=== PATIENT | female | born 2005 | race Caucasian/White ===

== ENCOUNTER 2023-08-01 12:59 | Inpatient (IN) ==
[2023-08-01] MEDS ORDERED: KETOROLAC TROMETHAMINE 15 MG/ML VIAL IV STA (13:28)
[2023-08-01] MEDS ORDERED: diphenhydrAMINE 50 MG/ML VIAL IV STA (13:28)
[2023-08-01] MEDS ORDERED: METOCLOPRAMIDE HCL INJ 5 MG/ML 2 ML VIAL IV STA (13:28)
[2023-08-01] MEDS ORDERED: SODIUM CHLORIDE 0.9% 1,000 ML IV SCH (13:30)
--- NOTE | 2023-08-01 13:44 | Emergency Department Note ---
Impression & Plan Headache, Lyme disease, Type I diabetes mellitus ED Provider Note CHIEF COMPLAINT: Migraine headache HISTORY OF PRESENT ILLNESS: This 18-year-old female patient with significant past medical history of type 1 diabetes presented to the emergency department via private vehicle with a gradual onset of a severe generalized headache that started 2-3 weeks ago. The patient denies history of migraines. She does have a history of Lyme disease and has had significant headache associated with that. Patient states the Lyme disease was approximately 1 year ago and her symptoms at this time remind her of the headache she had with the Lyme disease. There has been associated photophobia, phonophobia, nausea, but no vomiting. The patient denies fever or chills recently, and there is no weakness or numbness of the extremities. There is no difficulty with speech or vision. No trauma to the head and no neck pain. The pain is severe, constant, and it is slowly increasing in severity. The patient rates the pain as throbbing and 10/10. The pain does seem to improve with lying still and covering her eyes. The patient has taken Imitrex and Toradol without relief of the symptoms. Patient did try going to the chiropractor for adjustments about a week ago. She states that her headache has been consistently getting worse since that time. The patient has tried OTC analgesics without relief. REVIEW OF SYSTEMS: A 10 system review of systems was performed with positives and pertinent negatives listed in the history of present illness. All other systems were reviewed and are negative. ALLERGIES: Peanut PHYSICAL EXAM: Vital Signs: Reviewed Nurse's notes, vital signs stable. GENERAL: This is a 18-year-old female, who appears in pain, but non toxic in appearance and in no acute distress. MENTAL STATUS: Alert, oriented, and coherent. HEENT: Normocephalic. PERRLA. EOMI. Nares patent without nuchal rigidity. Tympanic membranes pearly clark without erythema or effusion bilaterally. Mucous membranes moist. NECK: Supple, no nuchal rigidity, nontender, no lymphadenopathy. HEART: Regular rhythm and normal rate without murmurs, ectopy, gallops, or rubs. LUNGS: Clear to auscultation bilaterally without wheezes, rales or rhonchi. No dullness to percussion. No accessory muscle use. No retractions. SKIN: Normal. NEUROLOGICAL: Pupils are round, equal and react to light. The optic fundi are normal and the discs are flat. The patient moves all extremities well and the gait is normal. EMERGENCY DEPARTMENT COURSE: I examined the patient. Patient presents with headache for the past 3 weeks. Patient has tried outpatient supplements as well as outpatient medications including Imitrex and OTC Tylenol and ibuprofen without relief of her symptoms. The patient did try Toradol earlier today without improvement. No neurologic deficit. No new tick bite, but mother did request repeat Lyme disease testing. IV access was obtained, labs are drawn. Patient was hydrated with IV fluids, medicated with Toradol, Reglan, Benadryl. CT, CT angiogram imaging was completed due to the patient's recent chiropractic manipulation. The studies were negative for acute abnormality. Labs were reviewed no leukocytosis, anemia, thrombocytopenia. Renal, hepatic function and electrolytes without significant abnormality. INR 1.1.. hCG negative. Lyme disease testing positive for both IgG and IgM antibodies. I discussed the findings with the patient and her mother at bedside. The patient states she is still not feeling any better. She was medicated with IV Tylenol and a second liter of IV fluids. The patient was again reassessed. She notes no improvement in her symptoms. I discussed at this time with the patient the potential need for admission, lumbar puncture, or other therapies/treatments. The patient was interested in admission, but her mother was uncertain why we would recommend admission and felt it weird that her headache was not improving. The patient's mother states she does not believe that her symptoms are associated with Lyme disease. Advised that we could do a trial with IV steroids and magnesium in order to determine whether this may help with her headache. I advised the patient that our goal is 50% improvement in the headache for discharge. The patient was medicated with IV Magnesium and steroids. On reevaluation, she notes her pain is actually worse. I did recommend admission at this time and the patient and mother were agreeable. I discussed case with Sd Sapp hospitalist on-call. She did agree to see and evaluate the patient for admission. Please see hospitalist dictation regarding ongoing management and care of this patient. The differential diagnosis includes acute intracranial bleed, meningitis, encephalitis, mass or mass effect, sinusitis, infection, tumor, headache, temporal arteritis and carbon monoxide exposure, and migraine. Blood Pressure Screening: Patient was found to have a slightly elevated blood pressure due to circumstances. I do not believe that the patient requires hypertension monitoring. I attest that I have personally reviewed the patient's current medication list. The chart was completed utilizing [employer] voice recognition software. Grammatical errors, random word insertions, pronoun errors, and incomplete sentences are an occasional consequence of this system due to software limitations, ambient noise, and hardware issues. Any formal questions or concerns about the content, text, or information contained within the body of this dictation should be directly addressed to the provider for clarification. Past Med/Surg History Medical History H/o Lyme disease Major depressive disorder Patellofemoral pain syndrome of left knee Type I diabetes mellitus Surgical History (Updated 08/01/23 @ 20:12 by Saira Dumont DO) No pertinent past surgical history Family History (Updated 08/01/23 @ 20:13 by Saira Dumont DO) Father Thyroid disease Grandmother Thyroid disease Social History Smoking Status: Never smoker Hx Alcohol Use: No Hx Substance Use: No Preferred Language: Swazi Feels Safe at Home: Yes Allergies Allergies Allergy/AdvReac Type Severity Reaction Status Date / Time peanut Allergy Unknown Unverified 08/01/23 19:24 Home Meds Home Medications Medication Instructions Recorded Confirmed insulin aspart U-100 100 unit/mL 48 unit continuous subcutaneous 10/23/21 08/01/23 subcutaneous solution (Novolog infusion DAILY U-100 Insulin aspart) bupropion HCl 150 mg 24 hr tablet, 150 mg PO QAM 08/01/23 08/01/23 extended release magnesium 200 mg tablet 400 mg PO DAILY 08/01/23 08/01/23 melatonin 10 mg tablet 20 mg PO HS 08/01/23 08/01/23 riboflavin (vitamin B2) 400 mg 400 mg PO DAILY 08/01/23 08/01/23 tablet sertraline 25 mg tablet 37.5 mg PO QPM 08/01/23 08/01/23 Results & Data (ED) Vital Signs Vital Signs - 24 hr 08/01/23 13:13 08/01/23 13:45 08/01/23 13:28 Temperature 36.3 C L Temperature Source Temporal Artery Scan Pulse Rate - Lying Pulse Rate - Sitting Pulse Rate 108 H 93 H Pulse Rate [Right Finger] 102 H Pulse Rhythm Regular Regular Pulse Rhythm [Right Finger] Regular Pulse Strength Normal Pulse Strength [Right Finger] Normal Respiratory Rate 20 18 80 H Respiratory Effort / Characteristics Non-Labored Spontaneous Non-Labored Spontaneous Respiratory Depth Normal Normal Respiratory Pattern Regular Blood Pressure - Lying Blood Pressure - Sitting Blood Pressure 153/97 H Blood Pressure [Right Arm] Blood Pressure Mean 115 Blood Pressure Mean [Right Arm] Blood Pressure Position Sitting Blood Pressure Position [Right Arm] Pulse Oximetry 100 97 96 Oxygen Delivery Method Room Air Room Air Room Air Sepsis Recent Fever Within 48 Hours No Sepsis New/Unexplained Change in Mental Status No Sepsis Action Taken by Nursing No Action Required 08/01/23 15:00 08/01/23 15:53 08/01/23 19:14 Temperature Temperature Source Pulse Rate - Lying 90 Pulse Rate - Sitting 114 H Pulse Rate Pulse Rate [Right Finger] 96 H 92 H Pulse Rhythm Pulse Rhythm [Right Finger] Regular Pulse Strength Pulse Strength [Right Finger] Normal Normal Respiratory Rate 16 16 Respiratory Effort / Characteristics Non-Labored Spontaneous Non-Labored Respiratory Depth Normal Normal Respiratory Pattern Regular Regular Blood Pressure - Lying 152/87 H Blood Pressure - Sitting 160/101 H Blood Pressure Blood Pressure [Right Arm] 151/85 H Blood Pressure Mean Blood Pressure Mean [Right Arm] 107 Blood Pressure Position Blood Pressure Position [Right Arm] Lying Pulse Oximetry 97 99 Oxygen Delivery Method Room Air Room Air Sepsis Recent Fever Within 48 Hours Sepsis New/Unexplained Change in Mental Status Sepsis Action Taken by Nursing Laboratory Data 08/01/23 13:59 08/01/23 13:59 Lab Results 08/01/23 08/01/23 08/01/23 Range/Units 13:59 13:59 13:59 WBC 7.86 (4.8-10.8) K/ul RBC 5.53 H (4.20-5.40) M/uL Hgb 16.0 (12.0-16.0) g/dl Hct 46.8 (37.0-47.0) % MCV 84.6 (80.0-100.0) fL MCH 28.9 (25.0-34.0) pg MCHC 34.2 (32.0-36.0) g/dL RDW Std Deviation 36.4 (36.4-46.3) fL RDW Coeff of Blue 11.9 (11.5-14.5) % Plt Count 274 (130-400) K/uL MPV 8.9 L (9.4-12.4) fL Immature Gran % (Auto) 0.1 % Neut % (Auto) 73.1 % Lymph % (Auto) 19.8 % Louisa % (Auto) 4.7 % Eos % (Auto) 1.3 % Baso % (Auto) 1.0 % Neut # (Auto) 5.74 (1.40-6.50) K/uL Lymph # (Auto) 1.56 (1.20-3.40) K/uL Louisa # (Auto) 0.37 (0.11-0.59) K/uL Eos # (Auto) 0.10 (0.00-0.50) K/uL Baso # (Auto) 0.08 (0.00-0.20) K/uL Immature Gran # (Auto) 0.01 (0.01-0.20) K/uL PT 11.5 (9.0-12.0) Seconds INR 1.1 (0.9-1.1) APTT 30.6 (21.0-31.0) Seconds PTT Ratio 1.1 Sodium 139 (136-145) mmol/L Potassium 3.7 (3.5-5.1) mmol/L Chloride 105 (98-107) mmol/L Carbon Dioxide 26 (21-32) mmol/L Anion Gap 8 (3-11) BUN 11 (6-23) mg/dl Creatinine 0.68 (0.6-1.2) mg/dl Est Cr Clr Drug Dosing 142.7 ml/min Est GFR ( Amer) 145.9 ml/min Est GFR (Non-Af Amer) 125.9 ml/min BUN/Creatinine Ratio 16.2 (10-20) Glucose 115 H (70-99(Fasting)) mg/dl Calcium 10.0 (8.6-10.3) mg/dl Total Bilirubin 0.6 (0.2-1.0) mg/dl AST 13 (13-39) U/L ALT 8 (7-52) U/L Alkaline Phosphatase 44 (34-104) U/L Total Protein 8.7 H (6.0-8.3) gm/dl Albumin 5.2 H (3.4-5.0) gm/dl Globulin 3.5 (2.5-4.0) gm/dl Albumin/Globulin Ratio 1.5 (0.9-2) HCG, Qual (Negative) Lyme Disease IgG Ab (Negative) Lyme Disease IgM Ab (Negative) 08/01/23 Range/Units 13:59 WBC (4.8-10.8) K/ul RBC (4.20-5.40) M/uL Hgb (12.0-16.0) g/dl Hct (37.0-47.0) % MCV (80.0-100.0) fL MCH (25.0-34.0) pg MCHC (32.0-36.0) g/dL RDW Std Deviation (36.4-46.3) fL RDW Coeff of Blue (11.5-14.5) % Plt Count (130-400) K/uL MPV (9.4-12.4) fL Immature Gran % (Auto) % Neut % (Auto) % Lymph % (Auto) % Louisa % (Auto) % Eos % (Auto) % Baso % (Auto) % Neut # (Auto) (1.40-6.50) K/uL Lymph # (Auto) (1.20-3.40) K/uL Louisa # (Auto) (0.11-0.59) K/uL Eos # (Auto) (0.00-0.50) K/uL Baso # (Auto) (0.00-0.20) K/uL Immature Gran # (Auto) (0.01-0.20) K/uL PT (9.0-12.0) Seconds INR (0.9-1.1) APTT (21.0-31.0) Seconds PTT Ratio Sodium (136-145) mmol/L Potassium (3.5-5.1) mmol/L Chloride (98-107) mmol/L Carbon Dioxide (21-32) mmol/L Anion Gap (3-11) BUN (6-23) mg/dl Creatinine (0.6-1.2) mg/dl Est Cr Clr Drug Dosing ml/min Est GFR ( Amer) ml/min Est GFR (Non-Af Amer) ml/min BUN/Creatinine Ratio (10-20) Glucose (70-99(Fasting)) mg/dl Calcium (8.6-10.3) mg/dl Total Bilirubin (0.2-1.0) mg/dl AST (13-39) U/L ALT (7-52) U/L Alkaline Phosphatase (34-104) U/L Total Protein (6.0-8.3) gm/dl Albumin (3.4-5.0) gm/dl Globulin (2.5-4.0) gm/dl Albumin/Globulin Ratio (0.9-2) HCG, Qual Negative (Negative) Lyme Disease IgG Ab Positive A (Negative) Lyme Disease IgM Ab Positive A (Negative) Administered Medications Discontinued Medications Dexamethasone Sodium Phosphate (DexamethasonePf 10 Mg/Ml Vial) 10 mg IV NOW ONE Stop: 08/01/23 17:29 Last Admin: 08/01/23 18:28 Dose: 10 mg Documented By: SKIP Diphenhydramine HCl (Diphenhydramine 50 Mg/Ml Vial) 25 mg IV NOW STA Stop: 08/01/23 13:29 Last Admin: 08/01/23 14:18 Dose: 50 mg Documented By: SKIP Sodium Chloride (Nss) 1,000 mls @ 999 mls/hr IV .Q1H1M MECHE Stop: 08/01/23 14:30 Last Infusion: 08/01/23 16:51 Dose: 0 mls/hr Documented By: Admin: 08/01/23 14:17 Dose: 999 mls/hr Documented By: SKIP Sodium Chloride (Nss) 1,000 mls @ 999 mls/hr IV .Q1H1M ONE Stop: 08/01/23 17:10 Last Infusion: 08/01/23 19:14 Dose: 0 mls/hr Documented By: Admin: 08/01/23 16:27 Dose: 999 mls/hr Documented By: SKIP Acetaminophen (Ofirmev) 1,000 mg in 100 mls @ 400 mls/hr IV NOW STA Stop: 08/01/23 16:24 Last Infusion: 08/01/23 19:13 Dose: 0 mls/hr Documented By: Admin: 08/01/23 16:29 Dose: 400 mls/hr Documented By: SKIP Ceftriaxone Sodium (Rocephin) 2,000 mg in 50 mls @ 100 mls/hr IV NOW STA Stop: 08/01/23 16:55 Last Infusion: 08/01/23 19:13 Dose: 0 mls/hr Documented By: Admin: 08/01/23 17:00 Dose: 100 mls/hr Documented By: SKIP Magnesium Sulfate/Dextrose (Magnesium Sulfate / D5w) 1 gm in 100 mls @ 100 mls/hr IV NOW ONE Stop: 08/01/23 18:27 Last Infusion: 08/01/23 19:30 Dose: 0 mls/hr Documented By: Admin: 08/01/23 18:28 Dose: 100 mls/hr Documented By: SKIP Ioversol (Optiray 320 500ml) 115 ml IV ONCE ONE Stop: 08/01/23 15:05 Last Admin: 08/01/23 15:05 Dose: 115 ml Documented By: JOHANNA Ketorolac Tromethamine (Ketorolac Tromethamine 15 Mg/Ml Vial) 10 mg IV NOW STA Stop: 08/01/23 13:29 Last Admin: 08/01/23 14:18 Dose: 15 mg Documented By: SKIP Lidocaine (Lidocaine 5% 1 Patch) 1 patch TD NOW STA Stop: 08/01/23 16:11 Last Admin: 08/01/23 16:27 Dose: 1 patch Documented By: SKIP Metoclopramide HCl (Metoclopramide Hcl Inj 5 Mg/Ml 2 Ml Vial) 10 mg IV NOW STA Stop: 08/01/23 13:29 Last Admin: 08/01/23 14:18 Dose: 10 mg Documented By: SKIP Imaging Data Radiologist's Impression: Head CT 08/01/23 13:30 CT OF THE HEAD WITHOUT CONTRAST CLINICAL HISTORY: Headache. COMPARISON STUDY: Head CT October 23, 2021. TECHNIQUE: Helical axial images of the head were obtained without IV contrast. Automated exposure control was utilized for the study. A dose lowering technique was utilized adhering to the principles of ALARA. FINDINGS: No acute intracranial hemorrhage, midline shift or mass effect is present. The ventricular system is unremarkable. The basal cisterns are patent. No extra-axial collections are present. There are no findings to suggest acute dural sinus thrombosis or acute territorial infarct. No significant calvarial abnormalities are present. Visualized portions of the sinuses and mastoid air cells are clear. IMPRESSION: No acute intracranial findings. ACT 112: Negative or not required by law. Electronically signed by: Christian Tao M.D. 08/01/2023 3:13 PM Head CTA 08/01/23 13:30 CTA ANGIOGRAPHY OF THE HEAD CLINICAL HISTORY: Headache. COMPARISON STUDY: No previous studies for comparison. TECHNIQUE: Helical axial images of the head were obtained following uneventful intravenous administration of 115 cc of Optiray. Sagittal and coronal reconstructions were viewed as well as maximal intensity projections on an independent 3-D workstation. Automated exposure control was utilized for the study. A dose lowering technique was utilized adhering to the principles of ALARA. FINDINGS: No acute intracranial hemorrhage is identified on the head CT which will be reported separately. The ventricular system is normal. Basal cisterns are patent. There are no extra axial collections. The bilateral M1, M2, A1 and A2 segments are patent. There is no intracranial aneurysm. There is no central vessel occlusion. Posterior circulation is intact. Major dural sinuses appear pa tent. IMPRESSION: Unremarkable CTA of the head. ACT 112: Negative or not required by law. Electronically signed by: Christian Tao M.D. 08/01/2023 3:24 PM Neck CTA 08/01/23 13:30 CT ANGIOGRAPHY OF THE NECK WITH CONTRAST CLINICAL HISTORY: Headache. COMPARISON STUDY: No previous studies for comparison. Technique: CT angiography of the carotid and vertebral arteries was obtained using Optiray and 3D reconstruction on an independent workstation. NASCET criteria was utilized. Automated exposure control was utilized for the study. A dose lowering technique was utilized adhering to the principles of ALARA. CT DOSE: 1190.9 mGy.cm Findings: Visualized portions of the lung apices are unremarkable. There is no cervical lymphadenopathy. There are no cervical spine fractures. The bilateral common carotid, cervical internal carotid and vertebral arteries are patent. No dissection, stenosis or aneurysm within the neck is present. IMPRESSION: Unremarkable CTA of the neck. ACT 112: Negative or not required by law. Electronically signed by: Christian Tao M.D. 08/01/2023 3:21 PM Discharge Plan Visit Data Chief Complaint: Headache Stated Complaint: MIGRAINE, NECK PAIN ED Provider: Mitzi Beasley ED Midlevel Provider: Sara Herrera Discharge Problem: Headache, Lyme disease, Type I diabetes mellitus Forms Stand Alone Forms: [facility]lectance Medical Prescriptions Prescriptions: No Action insulin aspart U-100 [Novolog U-100 Insulin aspart] 100 unit/mL solution 48 unit continuous subcutaneous infusion DAILY Rx Instructions: pump sertraline 25 mg tablet 37.5 mg PO QPM magnesium 200 mg Tablet 400 mg PO DAILY bupropion HCl 150 mg tablet extended release 24 hr 150 mg PO QAM melatonin 10 mg Tablet 20 mg PO HS riboflavin (vitamin B2) 400 mg Tablet 400 mg PO DAILY Referrals Referrals: PCP,NO [Physician] -
[2023-08-01 14:14] LABS: Basophils # (auto) 0.08 K/uL (0.00-0.20); Eosinophils % (auto) 1.3 %; Hematocrit (blood only) 46.8 % (37.0-47.0); Immature Granulocytes # (auto) 0.01 K/uL (0.01-0.20); Immature Granulocytes % (auto) 0.1 %; Lymphocytes # (auto) 1.56 K/uL (1.20-3.40); Lymphocytes % (auto) 19.8 %; Mean Corpuscular Hemoglobin 28.9 pg (25.0-34.0); Mean Corpuscular Hgb Conc 34.2 g/dL (32.0-36.0); Mean Corpuscular Volume 84.6 fL (80.0-100.0); Mean Platelet Volume 8.9 fL (9.4-12.4); Monocytes # (auto) 0.37 K/uL (0.11-0.59); Monocytes % (auto) 4.7 %; Neutrophils # (auto) 5.74 K/uL (1.40-6.50); Neutrophils % (auto) 73.1 %; Platelet Count 274 K/uL (130-400); RDW Coefficient of Variation 11.9 % (11.5-14.5); RDW Standard Deviation 36.4 fL (36.4-46.3); Red Blood Count 5.53 M/uL (4.20-5.40); White Blood Count 7.86 K/ul (4.8-10.8)
[2023-08-01 14:26] LABS: Pregnancy Test, Serum Negative (Negative)
[2023-08-01 14:27] LABS: Albumin Globulin Ratio 1.5 (0.9-2); Albumin Level 5.2 gm/dl (3.4-5.0); BUN Creatinine Ratio 16.2 (10-20); Bilirubin,Total 0.6 mg/dl (0.2-1.0); Creatinine Clr Calc Pharmacy 142.7 ml/min; Est GFR (African American) 145.9 ml/min; Est GFR (Non-African American) 125.9 ml/min; Globulin 3.5 gm/dl (2.5-4.0); Potassium 3.7 mmol/L (3.5-5.1); Total Protein 8.7 gm/dl (6.0-8.3)
[2023-08-01 14:43] LABS: INR 1.1 (0.9-1.1); Partial Thromboplastin Ratio 1.1; Partial Thromboplastin Time 30.6 Seconds (21.0-31.0); Prothrombin Time 11.5 Seconds (9.0-12.0)
[2023-08-01] MEDS ORDERED: OPTIRAY 320 500ml IV ONE (15:04)
[2023-08-01 15:12] LABS: Lyme Ab IgG w/WB Rflx Positive (Negative); Lyme Ab IgM w/WB Rflx Positive (Negative)
--- NOTE | 2023-08-01 15:15 | CT Scan Report ---
CT OF THE HEAD WITHOUT CONTRAST CLINICAL HISTORY: Headache. COMPARISON STUDY: Head CT October 23, 2021. TECHNIQUE: Helical axial images of the head were obtained without IV contrast. Automated exposure con trol was utilized for the study. A dose lowering technique was utilized adhering to the principles o f ALARA. FINDINGS: No acute intracranial hemorrhage, midline shift or mass effect is present. The ventricular system is unremarkable. The basal cisterns are patent. No extra-axial collections are present. There are no findings to suggest acute dural sinus thrombosis or acute territorial infarct. No significant calvarial abnormalities are present. Visualized portions of the sinuses and mastoid air cells are judson ar. IMPRESSION: No acute intracranial findings. ACT 112: Negative or not required by law. Electronically signed by: Christian Tao M.D. 08/01/2023 3:13 PM
--- NOTE | 2023-08-01 15:23 | CT Scan Report ---
CT ANGIOGRAPHY OF THE NECK WITH CONTRAST CLINICAL HISTORY: Headache. COMPARISON STUDY: No previous studies for comparison. Technique: CT angiography of the carotid and vertebral arteries was obtained using Optiray and 3D rec onstruction on an independent workstation. NASCET criteria was utilized. Automated exposure control was utilized for the study. A dose lowering technique was utilized adhering to the principles of ALA RA. CT DOSE: 1190.9 mGy.cm Findings: Visualized portions of the lung apices are unremarkable. There is no cervical lymphadenopat hy. There are no cervical spine fractures. The bilateral common carotid, cervical internal carotid an d vertebral arteries are patent. No dissection, stenosis or aneurysm within the neck is present. IMPRESSION: Unremarkable CTA of the neck. ACT 112: Negative or not required by law. Electronically signed by: Christian Tao M.D. 08/01/2023 3:21 PM
--- NOTE | 2023-08-01 15:27 | CT Scan Report ---
CTA ANGIOGRAPHY OF THE HEAD CLINICAL HISTORY: Headache. COMPARISON STUDY: No previous studies for comparison. TECHNIQUE: Helical axial images of the head were obtained following uneventful intravenous administr ation of 115 cc of Optiray. Sagittal and coronal reconstructions were viewed as well as maximal inten sity projections on an independent 3-D workstation. Automated exposure control was utilized for the study. A dose lowering technique was utilized adhering to the principles of ALARA. FINDINGS: No acute intracranial hemorrhage is identified on the head CT which will be reported separa tely. The ventricular system is normal. Basal cisterns are patent. There are no extra axial collectio ns. The bilateral M1, M2, A1 and A2 segments are patent. There is no intracranial aneurysm. There is no central vessel occlusion. Posterior circulation is intact. Major dural sinuses appear patent. IMPRESSION: Unremarkable CTA of the head. ACT 112: Negative or not required by law. Electronically signed by: Christian Tao M.D. 08/01/2023 3:24 PM
[2023-08-01] MEDS ORDERED: SODIUM CHLORIDE 0.9% 1,000 ML IV ONE (16:10)
[2023-08-01] MEDS ORDERED: ACETAMINOPHEN 1,000 MG/100 ML VIAL IV STA (16:10)
[2023-08-01] MEDS ORDERED: LIDOCAINE 5% 1 PATCH TD STA (16:10)
[2023-08-01] MEDS ORDERED: cefTRIAXone SODIUM 2,000 MG/50 ML BAG IV STA (16:26)
[2023-08-01] MEDS ORDERED: dexAMETHasone**PF** 10 MG/ML VIAL IV ONE (17:28)
[2023-08-01] MEDS ORDERED: MAGNESIUM SULFATE / D5W 1 GM/100 ML BAG IV ONE (17:28)
--- NOTE | 2023-08-01 20:08 | History & Physical Report ---
Date of Service August 01, 2023 Assessment & Plan (1) Headache: Plan: Likely related to acute Lyme disease. MRI to rule out other causes with ongoing headache. Neuro consult requested. Cont with Ceftriaxone and pain medications/antiemetics as needed. (2) Lyme disease: Plan: Cont ceftriaxone empirically (3) Type I diabetes mellitus: Plan: chronic, controlled with recent A1C at goal. Cont to use insulin pump while in house. CGM monitor will likely need to be removed for the MRI. Will need BSG qACHS (4) Major depressive disorder: Plan: chronic, stable. Cont zoloft and bupropion (started early Jun) per home regimen. As bupropion is new, and 34% of patients report TRIMBLE as a side effect of this medication, this may also be the culprit if TRIMBLE persists despite initial treatment outlined above. 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 (6) Autism spectrum: Plan: Per history. Very articulate and capable. Good historian. SCDs/ambulation Full Code Dispo-to telemetry I spent a total of60 minutes coordinating, documenting, and providing care for this patient excluding time spent in the performance of separately billed services Saira Dumont DO [facility] Hospitalist History of Present Illness Chief Complaint: headache Primary Care Provider: Radha June DO 18 yo F presents with severe ongoing headache x 3 weeks. She was seen in the PCP office yesterday and was started on Imitrex with no success at controlling the headache. This is described as a pain that starts in the back of her head and radiates around to her temples. She has also been trying Motrin and Tylenol without success. She is a controlled Type I diabetic with stable blood sugars. A1C on 05/12/2023 was 6.9. On 07/30 she also connected with a primary care provider via telemedicine gave her magnesium and riboflavin without success. The patient notably tried chiropractic treatment x2 without success. She denied any blurry vision dizziness fevers or chills. There are no medication changes reported. Outpatient records reveal that she is also taking Zoloft and was recently placed on bupropion in early June after reporting a low energy level. 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 So she moved back. She lives in a single wide trailer on her parents property and eats at the house. Continues on bupropion and sertraline together. She reports a h/o Lyme disease in early 2021 and reported headache that wasn't as severe at that time. She had a significant fatigue issue and "was in bed for 8 months." She said what got her moving again was an antidepressant. She is also feeling fatigued again now, too, with this headache. She reports ongoing nausea and pain with sitting upright or standing upright. We reviewed the current labs and imaging with patient and mom together. Mom was at bedside and assisted with the history. All questions were answered to her satisfaction. We discussed a trial of fioricet and will give Zofran which has worked for her in the past for nausea. We discussed the plan for MR brain. We discussed the plan for neurology to see her. She reports her caffeine intake consists of one tea daily. She doesn't drink coffee or consistent sodas. She was also educated about medication overuse headache with OTC meds. She denies consistent use of Tylenol or Motrin. Allergies Allergy/AdvReac Type Severity Reaction Status Date / Time peanut Allergy Unknown Unverified 08/01/23 19:24 Home Medications Medication Instructions Recorded Confirmed Type insulin aspart U-100 100 unit/mL 48 unit continuous subcutaneous 10/23/21 08/01/23 History subcutaneous solution (Novolog infusion DAILY U-100 Insulin aspart) bupropion HCl 150 mg 24 hr tablet, 150 mg PO QAM 08/01/23 08/01/23 History extended release magnesium 200 mg tablet 400 mg PO DAILY 08/01/23 08/01/23 History melatonin 10 mg tablet 20 mg PO HS 08/01/23 08/01/23 History riboflavin (vitamin B2) 400 mg 400 mg PO DAILY 08/01/23 08/01/23 History tablet sertraline 25 mg tablet 37.5 mg PO QPM 08/01/23 08/01/23 History Past Med/Surg History Medical History (Updated 08/01/23 @ 21:25 by Saira Dumont, DO) Alteration in sensory perception Autism spectrum H/o Lyme disease Major depressive disorder Patellofemoral pain syndrome of left knee Type I diabetes mellitus Surgical History (Updated 08/01/23 @ 20:12 by Saira Dumont DO) No pertinent past surgical history Family History Father Thyroid disease Grandmother Thyroid disease Social History Smoking Status: Never smoker Hx Alcohol Use: No Hx Substance Use: No Preferred Language: Irish Feels Safe at Home: Yes Physical Exam Physical Exam: CONSTITUTIONAL: WNWD, vitals as above, generally well-appearing, NAD EYES: EOMI bilaterally, PERRL, normal conjunctivae, no scleral icterus ENT: external ear and nose normal, MMM NECK: trachea midline RESPIRATORY: clear to auscultation bilaterally, no crackles, rales or wheezes, normal respiratory effort CARDIOVASCULAR: regular rate and rhythm, S1 and 2 heard without murmurs, gallops or rubs, no JVD, no peripheral edema CHEST: inspection of chest was normal GASTROINTESTINAL: soft, nontender, ND, no guarding MUSCULOSKELETAL: strength 5/5 throughout, head is normocephalic and atraumatic SKIN: warm and dry NEUROLOGIC: patellar DTRs 2+ bilat. PERRL, EOMI, no facial palsy, no dysarthria. Touch, pain and proprioception normal. CN 2-12 grossly intact, no sensory deficit, normal cognition, normal speech, no tremor PSYCHIATRIC: alert cooperative and oriented to person, place and time. Euthymic mood, makes good eye contact, language grossly intact, recent and remote memory grossly intact. Results & Data Results & Data Vital Signs (Past 12 Hours) Vital Signs Temp Pulse Pulse Resp BP BP Pulse Ox 08/01/23 19:14 92 H 16 151/85 H 99 08/01/23 15:00 96 H 16 97 08/01/23 13:28 93 H 80 H 96 08/01/23 13:45 102 H 18 97 08/01/23 13:13 36.3 C L 108 H 20 153/97 H 100 O2 Del Method 08/01/23 19:14 Room Air 08/01/23 15:00 Room Air 08/01/23 13:28 Room Air 08/01/23 13:45 Room Air 08/01/23 13:13 Room Air Laboratory Results Short CBC 08/01/23 Range/Units 13:59 WBC 7.86 (4.8-10.8) K/ul Hgb 16.0 (12.0-16.0) g/dl Hct 46.8 (37.0-47.0) % Plt Count 274 (130-400) K/uL BMP 08/01/23 13:59 Sodium 139 Potassium 3.7 Chloride 105 Carbon Dioxide 26 BUN 11 Creatinine 0.68 Glucose 115 H Calcium 10.0 Liver Function 08/01/23 Range/Units 13:59 Total Bilirubin 0.6 (0.2-1.0) mg/dl AST 13 (13-39) U/L ALT 8 (7-52) U/L Alkaline Phosphatase 44 (34-104) U/L Albumin 5.2 H (3.4-5.0) gm/dl Diagnostic Findings Head CT 08/01/23 13:30 CT OF THE HEAD WITHOUT CONTRAST CLINICAL HISTORY: Headache. COMPARISON STUDY: Head CT October 23, 2021. TECHNIQUE: Helical axial images of the head were obtained without IV contrast. A utomated exposure control was utilized for the study. A dose lowering technique was utilized adhering to the principles of ALARA. FINDINGS: No acute intracranial hemorrhage, midline shift or mass effect is present. The ventricular system is unremarkable. The basal cisterns are patent. No extra-axial collections are present. There are no findings to suggest acute dural sinus thrombosis or acute territorial infarct. No significant calvarial abnormalities are present. Visualized portions of the sinuses and mastoid air cells are clear. IMPRESSION: No acute intracranial findings. ACT 112: Negative or not required by law. Electronically signed by: Christian Tao M.D. 08/01/2023 3:13 PM Head CTA 08/01/23 13:30 CTA ANGIOGRAPHY OF THE HEAD CLINICAL HISTORY: Headache. COMPARISON STUDY: No previous studies for comparison. TECHNIQUE: Helical axial images of the head were obtained following uneventful intravenous administration of 115 cc of Optiray. Sagittal and coronal reconstructions were viewed as well as maximal intensity projections on an independent 3-D workstation. Automated exposure control was utilized for the study. A dose lowering technique was utilized adhering to the principles of ALARA. FINDINGS: No acute intracranial hemorrhage is identified on the head CT which will be reported separately. The ventricular system is normal. Basal cisterns are patent. There are no extra axial collections. The bilateral M1, M2, A1 and A2 segments are patent. There is no intracranial aneurysm. There is no central vessel occlusion. Posterior circulation is intact. Major dural sinuses appear patent. IMPRESSION: Unremarkable CTA of the head. ACT 112: Negative or not required by law. Electronically signed by: Christian Tao M.D. 08/01/2023 3:24 PM Neck CTA 08/01/23 13:30 CT ANGIOGRAPHY OF THE NECK WITH CONTRAST CLINICAL HISTORY: Headache. COMPARISON STUDY: No previous studies for comparison. Technique: CT angiography of the carotid and vertebral arteries was obtained using Optiray and 3D reconstruction on an independent workstation. NASCET criteria was utilized. Automated exposure control was utilized for the study. A dose lowering technique was utilized adhering to the principles of ALARA. CT DOSE: 1190.9 mGy.cm Findings: Visualized portions of the lung apices are unremarkable. There is no cervical lymphadenopathy. There are no cervical spine fractures. The bilateral common carotid, cervical internal carotid and vertebral arteries are patent. No dissection, stenosis or aneurysm within the neck is present. IMPRESSION: Unremarkable CTA of the neck. ACT 112: Negative or not required by law. Electronically signed by: Christian Tao M.D. 08/01/2023 3:21 PM Medications Administered Current Inpatient Medications Miscellaneous (Remove Lidoderm Patch) 1 each N/A DAILY@2100 MECHE Stop: 08/31/23 20:59 Code Status & VTE Plan VTE Prophylaxis Plan VTE Prophylaxis will be ordered: Yes
[2023-08-01] MEDS ORDERED: BUTALBITAL/ACETAMIN/CAFFEINE TAB PO STA (20:55)
[2023-08-01] MEDS ORDERED: ONDANSETRON INJ 2 MG/ML 2 ML VIAL IV STA (20:57)
[2023-08-01] MEDS: INSULIN, Rapid-Acting PUMP SC SCH (22:12)
[2023-08-01 23:04] LABS: Pregnancy Test, Urine Negative (Negative)
[2023-08-01] MEDS ORDERED: ALUMINUM/MAGNESIUM SUSP 30 ML UDC PO PRN (23:22)
[2023-08-01] MEDS ORDERED: GLUCOSE 10 TAB/TUBE PO PRN (23:30)
[2023-08-01] MEDS ORDERED: CARBOHYDRATES FOR HYPOGLYCEMIA PO PRN (23:30)
[2023-08-01] MEDS ORDERED: DEXTROSE 50% 50 ML SYRINGE IV PRN (23:30)
[2023-08-01] MEDS ORDERED: INSULIN ASPART 100 UNITS/ML VIAL SC PRN (23:30)
[2023-08-01] MEDS ORDERED: GLUCOSE 40% GEL 15 GM TUBE PO PRN (23:30)
[2023-08-01] MEDS ORDERED: GLUCAGON FOR INJ 1 MG VIAL IM PRN (23:30)
[2023-08-02] MEDS: SERTRALINE HCL 50 MG TABLET PO SCH ×2 (00:21→21:16)
[2023-08-02] MEDS: MELATONIN 3 MG TAB PO PRN (00:22)
[2023-08-02] MEDS ORDERED: KETOROLAC TROMETHAMINE 15 MG/ML VIAL IV ONE (04:18)
[2023-08-02] MEDS ORDERED: IBUPROFEN 200 MG TAB PO PRN (04:18)
[2023-08-02 07:49] LABS: Hematocrit (blood only) 41.1 % (37.0-47.0); Hemoglobin 14.2 g/dl (12.0-16.0); Mean Corpuscular Hgb Conc 34.5 g/dL (32.0-36.0); Mean Corpuscular Volume 83.9 fL (80.0-100.0); Mean Platelet Volume 9.1 fL (9.4-12.4); Platelet Count 265 K/uL (130-400); RDW Coefficient of Variation 11.9 % (11.5-14.5); RDW Standard Deviation 35.9 fL (36.4-46.3); White Blood Count 15.66 K/ul (4.8-10.8)
--- NOTE | 2023-08-02 08:04 | Hospitalist Progress Note ---
Date of Service August 02, 2023 Assessment & Plan (1) Headache: Plan: Likely related to acute Lyme disease. MRI to rule out other causes with ongoing headache. Neuro consult requested. Cont with Ceftriaxone and pain medications/antiemetics as needed. (2) Lyme disease: Plan: Cont ceftriaxone empirically, will consult ID (3) Type I diabetes mellitus: Plan: chronic, controlled with recent A1C at goal. Cont to use insulin pump while in house. CGM monitor will likely need to be removed for the MRI. Will need BSG qACHS (4) Major depressive disorder: Plan: chronic, stable. Cont zoloft and bupropion (started early Jun) per home regimen. As bupropion is new, and 34% of patients report TRIMBLE as a side effect of this medication, this may also be the culprit if TRIMBLE persists despite initial treatment outlined above. 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 (6) Autism spectrum: Plan: Per history. Very articulate and capable. Good historian. SCDs/ambulation Full Code Dispo-continue telemetry, pending neurology recommendations I spent a total of60 minutes coordinating, documenting, and providing care for this patient excluding time spent in the performance of separately billed services Saira Dumont DO [facility] Hospitalist Admission and Anticipated Discharge Date Admission Date: August 01, 2023 Subjective 18-year-old female presents with 3 weeks of a headache and decreased quality of life as a result. Lyme is positive, possible Lyme meningitis. Headache is still present and severity is about the same. Nausea is present and uncontrolled with Zofran IV. Giving Phenergan p.o. No vomiting. No fever. Physical Exam Physical Exam: CONSTITUTIONAL: WNWD, vitals as above, generally well-appearing, NAD EYES: EOMI bilaterally, PERRL, normal conjunctivae, no scleral icterus ENT: external ear and nose normal, MMM NECK: trachea midline RESPIRATORY: clear to auscultation bilaterally, no crackles, rales or wheezes, normal respiratory effort CARDIOVASCULAR: regular rate and rhythm, S1 and 2 heard without murmurs, badillo ps or rubs, no JVD, no peripheral edema CHEST: inspection of chest was normal GASTROINTESTINAL: soft, nontender, ND, no guarding MUSCULOSKELETAL: strength 5/5 throughout, head is normocephalic and atraumatic SKIN: warm and dry NEUROLOGIC: CN 2-12 grossly intact, no sensory deficit, normal cognition, normal speech, no tremor PSYCHIATRIC: alert cooperative and oriented to person, place and time. Euthymic mood, makes good eye contact, language grossly intact, recent and remote memory grossly intact. Results & Data Results & Data Vital Signs (Past 12 Hours) Vital Signs Temp Pulse Pulse Resp BP BP Pulse Ox 08/02/23 07:32 36.9 C 94 H 16 125/73 99 08/02/23 04:25 97 H 08/02/23 03:41 36.7 C 107 H 16 132/78 100 08/01/23 23:22 36.9 C 100 H 18 129/78 98 08/01/23 23:37 36.9 C 100 H 18 129/78 98 08/01/23 22:00 114 H 16 140/80 98 O2 Del Method 08/02/23 07:32 Room Air 08/02/23 04:25 08/02/23 03:41 Room Air 08/01/23 23:22 Room Air 08/01/23 23:37 Room Air 08/01/23 22:00 Room Air Laboratory Results Short CBC 08/01/23 08/02/23 Range/Units 13:59 07:18 WBC 7.86 15.66 H (4.8-10.8) K/ul Hgb 16.0 14.2 (12.0-16.0) g/dl Hct 46.8 41.1 (37.0-47.0) % Plt Count 274 265 (130-400) K/uL BMP 08/01/23 13:59 Sodium 139 Potassium 3.7 Chloride 105 Carbon Dioxide 26 BUN 11 Creatinine 0.68 Glucose 115 H Calcium 10.0 Liver Function 08/01/23 Range/Units 13:59 Total Bilirubin 0.6 (0.2-1.0) mg/dl AST 13 (13-39) U/L ALT 8 (7-52) U/L Alkaline Phosphatase 44 (34-104) U/L Albumin 5.2 H (3.4-5.0) gm/dl Medications Administered Current Inpatient Medications Acetaminophen (Acetaminophen 325 Mg Tab) 650 mg PO Q4H PRN PRN Reason: Pain or Fever Stop: 08/31/23 23:21 Al Hydrox/Mg Hydrox/Simethicone (Aluminum/Magnesium Susp 30 Ml Udc) 15 ml PO Q4H PRN PRN Reason: Dyspepsia Stop: 08/31/23 23:21 Bupropion HCl (Bupropion Xl 150 Mg Tabcr) 150 mg PO QAM [facility] Stop: 09/01/23 08:59 Dextrose (Dextrose 50% 50 Ml Syringe) 25 - 50 ml IV UD PRN; Protocol PRN Reason: Hypoglycemia Protocol Stop: 08/31/23 23:29 Glucagon (Glucagon For Inj 1 Mg Vial) 1 mg IM UD PRN; Protocol PRN Reason: Hypoglycemia Protocol Stop: 08/31/23 23:29 Glucose (Glucose 40% Gel 15 Gm Tube) 15 - 30 gm PO UD PRN; Protocol PRN Reason: Hypoglycemia Protocol Stop: 08/31/23 23:29 Glucose (Glucose 10 Tab/Tube) 4 - 8 tab PO UD PRN; Protocol PRN Reason: Hypoglycemia Protocol Stop: 08/31/23 23:29 Ceftriaxone Sodium 2,000 mg/ (Dextrose) 50 mls @ 100 mls/hr IV Q24H MECHE; Protocol Stop: 08/12/23 15:59 Ibuprofen (Ibuprofen 200 Mg Tab) 200 mg PO Q6H PRN PRN Reason: pain not relieved by tylenol Stop: 09/01/23 04:17 Insulin Aspart (Insulin, Rapid-Acting Pump) 1 each SC ACHS [facility]; Protocol Stop: 08/31/23 21:14 Last Admin: 08/01/23 22:12 Dose: 1 each Insulin Aspart (Insulin Aspart 100 Units/Ml Vial) 0 units SC PRN PRN PRN Reason: Pump Refill Use ONLY Stop: 08/31/23 23:29 Lidocaine (Lidocaine 5% 1 Patch) 1 patch TD HS [facility] Stop: 09/01/23 20:59 Magnesium Oxide (Magnesium Oxide 400 Mg Tab) 400 mg PO DAILY [facility]HE Stop: 09/01/23 08:59 Melatonin (Melatonin 3 Mg Tab) 18 mg PO HS PRN PRN Reason: Insomnia Stop: 08/31/23 23:29 Last Admin: 08/02/23 00:22 Dose: 18 mg Miscellaneous (Carbohydrates For Hypoglycemia ) 15 - 30 gm PO UD PRN PRN Reason: Hypoglycemia Treatment Stop: 08/31/23 23:29 Miscellaneous (Remove Lidoderm Patch) 1 each N/A QAM [facility] Stop: 09/01/23 03:59 Last Admin: 08/02/23 05:18 Dose: 1 each Polyethylene Glycol (Polyethylene (Miralax) 17 Gm Pack) 17 gm PO DAILY PRN PRN Reason: Constipation Stop: 08/31/23 23:21 Sertraline HCl (Sertraline Hcl 50 Mg Tablet) 37.5 mg PO QPM MECHE Stop: 08/31/23 23:21 Last Admin: 08/02/23 00:21 Dose: 37.5 mg
[2023-08-02 08:06] LABS: Anion Gap 9 (3-11); BUN Creatinine Ratio 18.5 (10-20); Blood Urea Nitrogen 10 mg/dl (6-23); Calcium 9.7 mg/dl (8.6-10.3); Carbon Dioxide 23 mmol/L (21-32); Chloride 106 mmol/L (98-107); Creatinine Clr Calc Pharmacy 179.7 ml/min; Est GFR (African American) > 150.0 ml/min; Est GFR (Non-African American) 135.8 ml/min; Glucose 158 mg/dl (70-99(Fasting)); Sodium 138 mmol/L (136-145)
[2023-08-02] MEDS: MAGNESIUM OXIDE 400 MG TAB PO SCH (08:44)
[2023-08-02] MEDS: ONDANSETRON INJ 2 MG/ML 2 ML VIAL IV PRN (08:44)
[2023-08-02] MEDS: INSULIN, Rapid-Acting PUMP SC SCH ×4 (08:45→21:00)
[2023-08-02] MEDS: buPROPion XL 150 MG TABCR PO SCH (08:45)
[2023-08-02] MEDS ORDERED: NON-FORMULARY MEDICATION (Riboflavin (Vitamin B2) 400 mg Tablet) PO SCH (09:00)
[2023-08-02] MEDS ORDERED: SODIUM CHLORIDE 0.9% 1,000 ML IV ONE (10:07)
[2023-08-02] MEDS ORDERED: PROMETHAZINE HCL 25 MG TAB PO STA (10:07)
--- NOTE | 2023-08-02 11:33 | Neurology Consultation ---
Date of Consultation August 02, 2023 Assessment & Plan (1) Headache: Plan 18 y/o female with history of autism, DM, and depression that presented with headache. She is afebrile and initally was without leukocytosis at presentation, although this is now present post steroids. She has been started on Rocephin due to concern for Lyme, with positive serum IgM. MRI pending. Dural venous sinuses appear patent on CTA. Given severity of headache and positional component, would recommend proceeding with lumbar puncture. Additionally, would continue symptomatic treatment of headache. 1. MRI brain pending 2. Lumbar puncture with opening pressure in lateral decubitus position if possible, with CSF collected for cell count, glucose, protein, gram stain, culture, meningitis panel, Lymes 3. Can attempt repeat cocktail with Toradol 30 mg IV (six hours after last dose), compazine 10 mg IV, and benadryl 25 mg IV or alternatively sodium valproate 500 mg IV once (with negative HCG) 4. If no improvement in headache and LP unremarkable, can consider dexamethasone taper with dexamethasone 4 mg tid for three days, then dexamethasone 4mg bid for two days, then dexamthesasone 4mg daily for three days 5. Would avoid fioricet for now 6. ID consult Telehealth Consultation Telehealth Information Telehealth Information: I performed this visit using a real-time telehealth connection between my location and the patients location ([facility]). After connecting through interactive tele-video, patient was identified by name and date of and/or wristband check.Patient (or authorized healthcare labor representative) was informed that this was a telemedicine visit and it was being conducted confidentially over secure lines. My office door was closed and no one else was present in the room with me.Patient (or authorized healthcare labor representative) provided consent to proceed with the visit, expressed an understanding of privacy and security of the telemedicine visit, and gave permission to have a hospital labor representative in the room in order to assist with the visit and to conduct portions of the visit, as needed. I informed the patient (or authorized healthcare labor representative) that I reviewed their record and presented the opportunity for them to ask any questions regarding the visit today. The patient agreed to participate. History of Present Illness Reason for Consultation: headache Requesting Physician: Dr. Saira Dumont Attending Physician: Saira Dumont, DO History of Present Illness 18 y/o female that presented with headache. She states that 2.5 weeks ago, she started getting pressure in the sides of her neck and a mild headache that she is unable to describe. She went to the chiropractor and were adjusted and she recalls being nauseaus that night and feeling worse. She noticed that her dull headache also seemed to be worsening and she was was experiencing a headache involving the occiput and bitemporal areas. This was pressure like. She states that she began attempting tylenol and ibuprofen without much benefit. She states that she went to the doctor and received treatment for migraine with imitrex and keotorolac and those also did not improve. She also began experiencing blurry vision. She was experiencing nausea and the nausea got so bad that she could not eat anything two to three days before coming in. She was also noticing phonophobia and photophobia. She does feel that her headache improves when she lies down. She does have chronic headaches, which she describes as dull bitemporal pain, occurring once per month. She usually does not usually have nausea, visual changes, photophobia, or phonophobia. In the ED, she received reglan 10 mg IV, benadryl 25 mg IV, magnesium 1g IV, toradol 15 mg, and dexamethasone 10 mg IV. Overnight, she received a second dose of toradol and a dose of fioricet. She has also been started on Rocephin due to concern for Lyme's Disease. She states that she has not had any improvement in her headache since arriving to the hospital. She and her family report a prior diagnosis of Lyme disease, following which she has several months of being bedridden with fatigue and headache. They state that her symptoms seemed to significantly improve after starting sertraline. Two months ago, she began buproprion 150 mg qam, and while she initially felt unwell after starting the medication, this dissipated after one month. Allergies Allergy/AdvReac Type Severity Reaction Status Date / Time peanut Allergy Unknown Unverified 08/01/23 19:24 Home Medications Medication Instructions Recorded Confirmed Type insulin aspart U-100 100 unit/mL 48 unit continuous subcutaneous 10/23/21 08/01/23 History subcutaneous solution (Novolog infusion DAILY U-100 Insulin aspart) bupropion HCl 150 mg 24 hr tablet, 150 mg PO QAM 08/01/23 08/01/23 History extended release magnesium 200 mg tablet 400 mg PO DAILY 08/01/23 08/01/23 History melatonin 10 mg tablet 20 mg PO HS 08/01/23 08/01/23 History riboflavin (vitamin B2) 400 mg 400 mg PO DAILY 08/01/23 08/01/23 History tablet sertraline 25 mg tablet 37.5 mg PO QPM 08/01/23 08/01/23 History Patient History Medical History (Updated 08/01/23 @ 21:25 by Saira Dumont DO) Alteration in sensory perception Autism spectrum H/o Lyme disease Major depressive disorder Patellofemoral pain syndrome of left knee Type I diabetes mellitus Surgical History (Updated 08/01/23 @ 20:12 by Saira Dumont DO) No pertinent past surgical history Family History Father Thyroid disease Grandmother Thyroid disease Social History Smoking Status: Never smoker Second Hand Exposure: No; Do You Dip or Chew Tobacco: No; Tobacco Cessation Education Requested by Patient: No Hx Alcohol Use: No Hx Substance Use: No Preferred Language: Jordanian Communication Ability: Effective Clinic Scheduler Required: No Beliefs That Will Affect Care: [employer] Current Living Situation: Parent Other Information That Helps Us Care for You: No Feels Safe at Home: Yes Safety Concerns: Feels Safe At This Time Assistive Devices: None Review of Systems Negative except as listed in HPI Physical Exam AAO X 3 No aphasia or dysarthria VFF grossy full EOMI, no nystagmus Decreased facial sensations on left No facial asymmetry Tongue protrudes midline Motor: Moves all four extremities antigravity, no drift. No involuntary movements. Sensation: Decreased to light touch in right upper extremity. Cerebellar: FTN intact Results & Data Vital Signs (Past 12 Hours) Vital Signs Temp Pulse Pulse Resp BP BP Pulse Ox 08/02/23 06:00 107 H 08/02/23 07:32 36.9 C 94 H 16 125/73 99 08/02/23 04:25 97 H 08/02/23 03:41 36.7 C 107 H 16 132/78 100 08/01/23 23:37 36.9 C 100 H 18 129/78 98 O2 Del Method 08/02/23 06:00 08/02/23 07:32 Room Air 08/02/23 04:25 08/02/23 03:41 Room Air 08/01/23 23:37 Room Air Laboratory Results WBC 15.66 (7.86), HGB 14.2, HCT 41.1, Plts 265, INR 1.1, Sodium 138, Creatinine 0.54, Glucose 158, Albumin 5.2, Lyme disease IGG in serum positive, Lyme IgM in serum poitive Diagnostic Findings CTH:No acute intracranial findings. CTA head/neck: The ventricular system is normal. Basal cisterns are patent. There are no extra axial collections. The bilateral M1, M2, A1 and A2 segments are patent. There is no intracranial aneurysm. There is no central vessel occlusion. Posterior circulation is intact. Major dural sinuses appear patent. The bilateral common carotid, cervical internal carotid and vertebral arteries are patent. No dissection, stenosis or aneurysm within the neck is present.
[2023-08-02] MEDS: ACETAMINOPHEN 325 MG TAB PO PRN (13:21)
[2023-08-02] MEDS ORDERED: diphenhydrAMINE 50 MG/ML VIAL IV STA (16:58)
[2023-08-02] MEDS ORDERED: KETOROLAC 30 MG/ML VIAL IV STA (16:58)
[2023-08-02] MEDS ORDERED: PROCHLORPERAZINE 10 MG in SYRINGE 8 ML IV ONE (17:15)
[2023-08-02] MEDS: cefTRIAXone SODIUM 2,000 MG in DEXTROSE 5 % MINI-B 50 ML IV SCH (17:17)
--- NOTE | 2023-08-02 18:51 | Magnetic Resonance Report ---
MR brain wo con CLINICAL HISTORY: recurrent, unrelenting headache TECHNIQUE: Multiplanar and multisequence MR images of the brain were obtained without intravenous con trast. Comparison: None available at the time of this dictation. FINDINGS: No abnormal restricted diffusion is identified. The white matter is unremarkable. The ventricular sys tem is normal in appearance. No mass is seen. There is no mass effect or midline shift. There is no e vidence of acute intraparenchymal hemorrhage. No extra axial fluid collections are seen. The corpus c allosum, pituitary gland, and cerebellar tonsils appear grossly unremarkable. Flow voids of the major intracranial arterial vessels are identified. The imaged portions of the para nasal sinuses, mastoid air cells, and orbits are unremarkable. IMPRESSION: No acute abnormalities. ACT 112: Negative or not required by law. Electronically signed by: Seven Bradshaw M.D. 08/02/2023 6:49 PM
[2023-08-02] MEDS ORDERED: LIDOCAINE 5% 1 PATCH TD SCH (21:00)
--- NOTE | 2023-08-02 22:44 | Electrocardiogram Report ---
Test Reason : Blood Pressure : / mmHG Vent. Rate : 090 BPM Atrial Rate : 090 BPM P-R Int : 130 ms QRS Dur : 088 ms QT Int : 368 ms P-R-T Axes : 071 084 053 degrees QTc Int : 450 ms Normal sinus rhythm Normal ECG When compared with ECG of 23-OCT-2021 11:53, No significant change was found Confirmed by Dinh Gill ([id number]) on 08/02/2023 10:43:46 PM Referred By: REFERRED SELF Confirmed By:Dinh Gill
[2023-08-03] MEDS: ACETAMINOPHEN 325 MG TAB PO PRN ×3 (03:20→17:45)
[2023-08-03 07:26] LABS: Basophils # (auto) 0.05 K/uL (0.00-0.20); Basophils % (auto) 0.9 %; Eosinophils # (auto) 0.09 K/uL (0.00-0.50); Eosinophils % (auto) 1.6 %; Hematocrit (blood only) 39.2 % (37.0-47.0); Hemoglobin 12.8 g/dl (12.0-16.0); Immature Granulocytes # (auto) 0.01 K/uL (0.01-0.20); Immature Granulocytes % (auto) 0.2 %; Lymphocytes # (auto) 1.86 K/uL (1.20-3.40); Lymphocytes % (auto) 32.8 %; Mean Corpuscular Hemoglobin 28.6 pg (25.0-34.0); Mean Corpuscular Hgb Conc 32.7 g/dL (32.0-36.0); Mean Corpuscular Volume 87.5 fL (80.0-100.0); Mean Platelet Volume 9.1 fL (9.4-12.4); Monocytes # (auto) 0.39 K/uL (0.11-0.59); Monocytes % (auto) 6.9 %; Neutrophils # (auto) 3.27 K/uL (1.40-6.50); Neutrophils % (auto) 57.6 %; Platelet Count 192 K/uL (130-400); RDW Standard Deviation 38.7 fL (36.4-46.3); Red Blood Count 4.48 M/uL (4.20-5.40); White Blood Count 5.67 K/ul (4.8-10.8)
--- NOTE | 2023-08-03 08:05 | Hospitalist Progress Note ---
Date of Service August 03, 2023 Assessment & Plan (1) Headache: Plan: Likely related to acute Lyme disease. MRI negative. Neuro consulted and requested LP which is negative with Lyme DNA pending. Opening pressure was 23 cm H2O. Cont with Ceftriaxone and pain medications/antiemetics as needed. Toradol 30mg IV with Compazine 10mg IV +/- Benadryl appears to be the most helpful for her. Awaiting ID consultation. (2) Lyme disease: Plan: Cont ceftriaxone empirically, will consult ID (3) Type I diabetes mellitus: Plan: chronic, controlled with recent A1C at goal. Cont to use insulin pump while in house. CGM monitor will likely need to be removed for the MRI. Will need BSG qACHS-currently at goal (4) Major depressive disorder: Plan: chronic, stable. Cont zoloft and bupropion (started early Jun) per home regimen. As bupropion is new, and 34% of patients report TRIMBLE as a side effect of this medication, this may also be the culprit if TRIMBLE persists despite initial treatment outlined above. 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 (6) Autism spectrum: Plan: Per history. Very articulate and capable. Good historian. SCDs/ambulation Full Code Dispo-continue telemetry, pending neurology recommendations I spent a total of60 minutes coordinating, documenting, and providing care for this patient excluding time spent in the performance of separately billed services Saira Dumont DO [facility] Hospitalist Admission and Anticipated Discharge Date Admission Date: August 02, 2023 Subjective 18-year-old female presents with 3 weeks of a headache and decreased quality of life as a result. Lyme is positive, possible Lyme meningitis. Headache is still present and severity is about the same. Nausea is present and uncontroll ed with Zofran IV. Giving Phenergan p.o. No vomiting. No fever. Physical Exam Physical Exam: CONSTITUTIONAL: WNWD, vitals as above, generally well-appearing, NAD EYES: EOMI bilaterally, PERRL, normal conjunctivae, no scleral icterus ENT: external ear and nose normal, MMM NECK: trachea midline RESPIRATORY: clear to auscultation bilaterally, no crackles, rales or wheezes, normal respiratory effort CARDIOVASCULAR: regular rate and rhythm, S1 and 2 heard without murmurs, gallops or rubs, no JVD, no peripheral edema CHEST: inspection of chest was normal GASTROINTESTINAL: soft, nontender, ND, no guarding MUSCULOSKELETAL: strength 5/5 throughout, head is normocephalic and atraumatic SKIN: warm and dry NEUROLOGIC: CN 2-12 grossly intact, no sensory deficit, normal cognition, normal speech, no tremor PSYCHIATRIC: alert cooperative and oriented to person, place and time. Euthymic mood, makes good eye contact, language grossly intact, recent and remote memory grossly intact. Results & Data Results & Data Vital Signs (Past 12 Hours) Vital Signs Temp Pulse Pulse Resp BP BP Pulse Ox 08/03/23 07:57 37.1 C 75 16 114/70 100 08/02/23 22:57 85 08/03/23 03:15 36.4 C L 69 16 116/70 99 08/02/23 23:35 36.4 C L 70 18 105/62 96 O2 Del Method 08/03/23 07:57 Room Air 08/02/23 22:57 08/03/23 03:15 Room Air 08/02/23 23:35 Room Air Laboratory Results Short CBC 08/03/23 Range/Units 06:59 WBC 5.67 (4.8-10.8) K/ul Hgb 12.8 (12.0-16.0) g/dl Hct 39.2 (37.0-47.0) % Plt Count 192 (130-400) K/uL BMP 08/02/23 07:18 Sodium 138 Potassium 4.0 Chloride 106 Carbon Dioxide 23 BUN 10 Creatinine 0.54 L Glucose 158 H Calcium 9.7 Medications Administered Current Inpatient Medications Acetaminophen (Acetaminophen 325 Mg Tab) 650 mg PO Q4H PRN PRN Reason: Pain or Fever Stop: 08/31/23 23:21 Last Admin: 08/03/23 03:20 Dose: 650 mg Al Hydrox/Mg Hydrox/Simethicone (Aluminum/Magnesium Susp 30 Ml Udc) 15 ml PO Q4H PRN PRN Reason: Dyspepsia Stop: 08/31/23 23:21 Bupropion HCl (Bupropion Xl 150 Mg Tabcr) 150 mg PO QAM [facility] Stop: 09/01/23 08:59 Last Admin: 08/02/23 08:45 Dose: 150 mg Dextrose (Dextrose 50% 50 Ml Syringe) 25 - 50 ml IV UD PRN; Protocol PRN Reason: Hypoglycemia Protocol Stop: 08/31/23 23:29 Glucagon (Glucagon For Inj 1 Mg Vial) 1 mg IM UD PRN; Protocol PRN Reason: Hypoglycemia Protocol Stop: 08/31/23 23:29 Glucose (Glucose 40% Gel 15 Gm Tube) 15 - 30 gm PO UD PRN; Protocol PRN Reason: Hypoglycemia Protocol Stop: 08/31/23 23:29 Glucose (Glucose 10 Tab/Tube) 4 - 8 tab PO UD PRN; Protocol PRN Reason: Hypoglycemia Protocol Stop: 08/31/23 23:29 Ceftriaxone Sodium 2,000 mg/ (Dextrose) 50 mls @ 100 mls/hr IV Q24H [facility]; Prot ocol Stop: 08/12/23 15:59 Last Infusion: 08/02/23 17:54 Dose: Infused Insulin Aspart (Insulin, Rapid-Acting Pump) [address] [facility]; Protocol Stop: 08/31/23 21:14 Last Admin: 08/02/23 21:00 Dose: Not Given Insulin Aspart (Insulin Aspart 100 Units/Ml Vial) 0 units SC PRN PRN PRN Reason: Pump Refill Use ONLY Stop: 08/31/23 23:29 Magnesium Oxide (Magnesium Oxide 400 Mg Tab) 400 mg PO DAILY [facility] Stop: 09/01/23 08:59 Last Admin: 08/02/23 08:44 Dose: 400 mg Melatonin (Melatonin 3 Mg Tab) 18 mg PO HS PRN PRN Reason: Insomnia Stop: 08/31/23 23:29 Last Admin: 08/02/23 00:22 Dose: 18 mg Miscellaneous (Carbohydrates For Hypoglycemia ) 15 - 30 gm PO UD PRN PRN Reason: Hypoglycemia Treatment Stop: 08/31/23 23:29 Miscellaneous (Remove Lidoderm Patch) 1 each N/A QAM [facility] Stop: 09/01/23 03:59 Last Admin: 08/02/23 05:18 Dose: 1 each Ondansetron HCl (Ondansetron Inj 2 Mg/Ml 2 Ml Vial) 4 mg IV Q6H PRN PRN Reason: Nausea And Vomiting Stop: 09/01/23 08:17 Last Admin: 08/02/23 08:44 Dose: 4 mg Polyethylene Glycol (Polyethylene (Miralax) 17 Gm Pack) 17 gm PO DAILY PRN PRN Reason: Constipation Stop: 08/31/23 23:21 Sertraline HCl (Sertraline Hcl 50 Mg Tablet) 37.5 mg PO QPM [facility] Stop: 08/31/23 23:21 Last Admin: 08/02/23 21:16 Dose: 37.5 mg
[2023-08-03] MEDS: buPROPion XL 150 MG TABCR PO SCH (08:26)
[2023-08-03] MEDS: MAGNESIUM OXIDE 400 MG TAB PO SCH (08:26)
[2023-08-03] MEDS: ONDANSETRON INJ 2 MG/ML 2 ML VIAL IV PRN ×2 (08:26→17:45)
[2023-08-03] MEDS: INSULIN, Rapid-Acting PUMP SC SCH ×4 (09:42→20:20)
[2023-08-03 09:46] LABS: CSF Glucose 67 mg/dl (40-70)
[2023-08-03 09:53] LABS: Appearance CSF Clear; CSF Count Tube # 3; CSF Xanthrochromic No xanthochromia; Color CSF Colorless
[2023-08-03 10:09] LABS: CSF Chemistry Tube # 1
[2023-08-03] MEDS ORDERED: KETOROLAC 30 MG/ML VIAL IV ONE ×2 (10:15→18:25)
[2023-08-03] MEDS ORDERED: PROCHLORPERAZINE 10 MG in SYRINGE 8 ML IV ONE ×2 (10:15→18:45)
[2023-08-03 10:48] LABS: Cryptococcus neoformans/ga PCR Not Detected (NotDetected); Cytomegalovirus PCR Not Detected (NotDetected); Enterovirus PCR Not Detected (NotDetected); Escherichia coli K1 PCR Not Detected (NotDetected); Haemophilius influenzae PCR Not Detected (NotDetected); Herpes Simplex Virus 1 PCR Not Detected (NotDetected); Herpes Simplex Virus 2 PCR Not Detected (NotDetected); Human Herpes Virus 6 PCR Not Detected (NotDetected); Human Parechovirus PCR Not Detected (NotDetected); Listeria monocytogenes PCR Not Detected (NotDetected); Neisseria meningitidis PCR Not Detected (NotDetected); Streptococcus agalactiae PCR Not Detected (NotDetected); Streptococcus pneumoniae PCR Not Detected (NotDetected); Varicella Zoster Virus PCR Not Detected (NotDetected)
--- NOTE | 2023-08-03 11:43 | Fluoroscopy Report ---
Fluoroscopic guided lumbar puncture INDICATION: Headache; Lyme's disease. Assess for meningitis PROCEDURE: Procedure and risks were explained. Informed consent was obtained. A final timeout was com pleted. The patient was placed prone on the fluoroscopic exam table. The lower lumbar region was prep ped and draped in sterile fashion. 1% lidocaine was utilized for skin anesthesia. Utilizing fluoroscopic guidance, a 22-gauge needle was advanced into the intrathecal space at the L2- 3 level. One spot image was obtained. Opening pressure was measured at 23 cm H20. Approximately 8 mL of clear CSF fluid was removed and sent to lab for analysis. The needle was removed and Band-Aid appl ied. The patient tolerated the procedure well. Vital signs will be monitored on the floor. Total fluo roscopy time 0.1 minutes. DAP is 0.990 mcGy/m2. IMPRESSION: Lumbar puncture as above. Performed, dictated, and signed by Gelacio Steele PA-C; to be co-signed by Dr. Christian Tao. Electronically signed by: Christian Tao M.D. 08/03/2023 5:19 PM
[2023-08-03] MEDS: cefTRIAXone SODIUM 2,000 MG in DEXTROSE 5 % MINI-B 50 ML IV SCH (15:58)
[2023-08-03] MEDS: SERTRALINE HCL 50 MG TABLET PO SCH (20:19)
[2023-08-03] MEDS: MELATONIN 3 MG TAB PO PRN (21:55)
[2023-08-04 07:22] LABS: Hematocrit (blood only) 42.7 % (37.0-47.0); Hemoglobin 14.6 g/dl (12.0-16.0); Mean Corpuscular Hemoglobin 28.9 pg (25.0-34.0); Mean Corpuscular Hgb Conc 34.2 g/dL (32.0-36.0); Mean Corpuscular Volume 84.6 fL (80.0-100.0); Mean Platelet Volume 8.9 fL (9.4-12.4); Platelet Count 226 K/uL (130-400); RDW Standard Deviation 36.5 fL (36.4-46.3); Red Blood Count 5.05 M/uL (4.20-5.40); White Blood Count 9.72 K/ul (4.8-10.8)
[2023-08-04 07:39] LABS: Anion Gap 5 (3-11); BUN Creatinine Ratio 14.3 (10-20); Blood Urea Nitrogen 11 mg/dl (6-23); C Reactive Protein < 0.50 mg/dl (0-0.5); Calcium 9.6 mg/dl (8.6-10.3); Carbon Dioxide 28 mmol/L (21-32); Chloride 107 mmol/L (98-107); Est GFR (African American) 128.8 ml/min; Est GFR (Non-African American) 111.1 ml/min; Glucose 121 mg/dl (70-99(Fasting)); Phosphorus 4.2 mg/dl (2.5-4.9); Potassium 3.8 mmol/L (3.5-5.1); Sodium 140 mmol/L (136-145)
[2023-08-04] MEDS: ACETAMINOPHEN 325 MG TAB PO PRN ×3 (07:42→22:16)
[2023-08-04] MEDS: ONDANSETRON INJ 2 MG/ML 2 ML VIAL IV PRN (07:43)
[2023-08-04] MEDS: INSULIN, Rapid-Acting PUMP SC SCH ×4 (09:10→21:55)
[2023-08-04] MEDS: MAGNESIUM OXIDE 400 MG TAB PO SCH (09:11)
[2023-08-04] MEDS: buPROPion XL 150 MG TABCR PO SCH (09:11)
[2023-08-04] MEDS ORDERED: KETOROLAC 30 MG/ML VIAL IV ONE ×2 (10:10→18:14)
--- NOTE | 2023-08-04 10:17 | Hospitalist Progress Note ---
Date of Service August 04, 2023 Assessment & Plan (1) Headache: Plan: Likely related to acute Lyme disease, but another possibility may be side effect from Bupropion. She is on sertraline chronically and bupropion was started at the current dose of 150mg on 07/05, which is around the same time the headache began. Holding this now, and if her TRIMBLE improves, would add this back cautiously as it will not be clear which treatment helped at this point. MRI negative. Neuro consulted and requested LP which is negative with Lyme DNA pending. Opening pressure was 23 cm H2O. Cont with Ceftriaxone and pain medications/antiemetics as needed. Toradol 30mg IV with Compazine 10mg IV +/- Benadryl appears to be the most helpful for her. Awaiting ID consultation. (2) Lyme disease: Plan: Cont ceftriaxone empirically, will consult ID (3) Type I diabetes mellitus: Plan: chronic, controlled with recent A1C at goal. Cont to use insulin pump while in house. CGM monitor will likely need to be removed for the MRI. Will need BSG qACHS-currently at goal (4) Major depressive disorder: Plan: chronic, stable. Cont zoloft and bupropion (started early Jun) per home regimen. As bupropion is new, and 34% of patients report TRIMBLE as a side effect of this medication, this may also be the culprit if TRIMBLE persists despite initial treatment outlined above. 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 (6) Autism spectrum: Plan: Per history. Very articulate and capable. Good historian. SCDs/ambulation Full Code Dispo-dc telemetry, cont hospitalization until symptoms start to improve and she becomes more functional. Of note, mother was updated by phone this morning and states that buproprion was "very difficult for her to take" when she started it, causing other noted side effects. For this reason I would not restart this medication at this point. I feel the risk of withdrawal is low given her short time on this drug and ongoing SSRI therapy with zoloft. I spent a total of60 minutes coordinating, documenting, and providing care for this patient excluding time spent in the performance of separately billed services DO [facility] Hospitalist Admission and Anticipated Discharge Date Admission Date: August 02, 2023 Subjective 18-year-old female presents with 3 weeks of a headache and decreased quality of life as a result. Lyme is positive, possible Lyme meningitis. Headache is still present and severity is about the same, described as coming up from her posterior neck. She is reporting a resolution of the numbness in her fingers today. Still TRIMBLE provoked with sitting up in bed/changing position. No fever. Discussed LP results with her, Lyme pending. Awaiting ID consultation. Physical Exam Physical Exam: CONSTITUTIONAL: WNWD, vitals as above, generally well-appearing, NAD EYES: EOMI bilaterally, PERRL, normal conjunctivae, no scleral icterus ENT: external ear and nose normal, MMM NECK: trachea midline RESPIRATORY: clear to auscultation bilaterally, no crackles, rales or wheezes, normal respiratory effort CARDIOVASCULAR: regular rate and rhythm, S1 and 2 heard without murmurs, gallops or rubs, no JVD, no peripheral edema CHEST: inspection of chest was normal GASTROINTESTINAL: soft, nontender, ND, no guarding MUSCULOSKELETAL: strength 5/5 throughout, head is normocephalic and atraumatic SKIN: warm and dry NEUROLOGIC: CN 2-12 grossly intact, no sensory deficit, normal cognition, normal speech, no tremor PSYCHIATRIC: alert cooperative and oriented to person, place and time. Euthymic mood, makes good eye contact, language grossly intact, recent and remote memory grossly intact. Results & Data Results & Data Vital Signs (Past 12 Hours) Vital Signs Temp Pulse Pulse Resp BP Pulse Ox O2 Del Method 08/04/23 09:16 36.7 C 72 18 125/74 98 Room Air 08/04/23 07:00 72 08/04/23 04:00 36.7 C 86 18 129/78 98 Room Air 08/04/23 00:00 73 08/03/23 22:57 36.7 C 90 16 101/62 97 Room Air Laboratory Results Short CBC 08/04/23 Range/Units 07:07 WBC 9.72 (4.8-10.8) K/ul Hgb 14.6 (12.0-16.0) g/dl Hct 42.7 (37.0-47.0) % Plt Count 226 (130-400) K/uL BMP 08/04/23 07:07 Sodium 140 Potassium 3.8 Chloride 107 Carbon Dioxide 28 BUN 11 Creatinine 0.77 Glucose 121 H Calcium 9.6 Medications Administered Current Inpatient Medications Acetaminophen (Acetaminophen 325 Mg Tab) 650 mg PO Q4H PRN PRN Reason: Pain or Fever Stop: 08/31/23 23:21 Last Admin: 08/04/23 07:42 Dose: 650 mg Al Hydrox/Mg Hydrox/Simethicone (Aluminum/Magnesium Susp 30 Ml Udc) 15 ml PO Q4H PRN PRN Reason: Dyspepsia Stop: 08/31/23 23:21 Bupropion HCl (Bupropion Xl 150 Mg Tabcr) 150 mg PO QAM [facility] Stop: 09/01/23 08:59 Last Admin: 08/04/23 09:11 Dose: 150 mg Dextrose (Dextrose 50% 50 Ml Syringe) 25 - 50 ml IV UD PRN; Protocol PRN Reason: Hypoglycemia Protocol Stop: 08/31/23 23:29 Glucagon (Glucagon For Inj 1 Mg Vial) 1 mg IM UD PRN; Protocol PRN Reason: Hypoglycemia Protocol Stop: 08/31/23 23:29 Glucose (Glucose 40% Gel 15 Gm Tube) 15 - 30 gm PO UD PRN; Protocol PRN Reason: Hypoglycemia Protocol Stop: 08/31/23 23:29 Glucose (Glucose 10 Tab/Tube) 4 - 8 tab PO UD PRN; Protocol PRN Reason: Hypoglycemia Protocol Stop: 08/31/23 23:29 Ceftriaxone Sodium 2,000 mg/ (Dextrose) 50 mls @ 100 mls/hr IV Q24H [facility]; Protocol Stop: 08/12/23 15:59 Last Infusion: 08/03/23 16:31 Dose: Infused Ceftriaxone Sodium 2,000 mg/ (Dextrose) 100 mls @ 200 mls/hr IV Q24H [facility]; Protocol Stop: 08/04/23 16:29 Prochlorperazine 10 mg/ (Syringe) 10 mls @ 5 mls/min IV ONE ONE Stop: 08/04/23 10:11 Insulin Aspart (Insulin, Rapid-Acting Pump) 1 each SC [facility]; Protocol Stop: 08/31/23 21:14 Last Admin: 08/04/23 09:10 Dose: 1 each Insulin Aspart (Insulin Aspart 100 Units/Ml Vial) 0 units SC PRN PRN PRN Reason: Pump Refill Use ONLY Stop: 08/31/23 23:29 Ketorolac Tromethamine (Ketorolac 30 Mg/Ml Vial) 30 mg IV NOW ONE Stop: 08/04/23 10:11 Magnesium Oxide (Magnesium Oxide 400 Mg Tab) 400 mg PO DAILY [facility] Stop: 09/01/23 08:59 Last Admin: 08/04/23 09:11 Dose: 400 mg Melatonin (Melatonin 3 Mg Tab) 18 mg PO HS PRN PRN Reason: Insomnia Stop: 08/31/23 23:29 Last Admin: 08/03/23 21:55 Dose: 18 mg Miscellaneous (Carbohydrates For Hypoglycemia ) 15 - 30 gm PO UD PRN PRN Reason: Hypoglycemia Treatment Stop: 08/31/23 23:29 Miscellaneous (Remove Lidoderm Patch) 1 each N/A QAM [facility] Stop: 09/01/23 03:59 Last Admin: 08/04/23 09:11 Dose: 1 each Ondansetron HCl (Ondansetron Inj 2 Mg/Ml 2 Ml Vial) 4 mg IV Q6H PRN PRN Reason: Nausea And Vomiting Stop: 09/01/23 08:17 Last Admin: 08/04/23 07:43 Dose: 4 mg Pantoprazole Sodium (Pantoprazole 40 Mg Tab) 40 mg PO QAM [facility] Stop: 09/03/23 10:14 Polyethylene Glycol (Polyethylene (Miralax) 17 Gm Pack) 17 gm PO DAILY PRN PRN Reason: Constipation Stop: 08/31/23 23:21 Sertraline HCl (Sertraline Hcl 50 Mg Tablet) 37.5 mg PO QPM [facility] Stop: 08/31/23 23:21 Last Admin: 08/03/23 20:19 Dose: 37.5 mg
[2023-08-04] MEDS ORDERED: PROCHLORPERAZINE 10 MG in SYRINGE 8 ML IV ONE (10:30)
[2023-08-04] MEDS: PANTOprazole 40 MG TAB PO SCH (11:46)
[2023-08-04] MEDS ORDERED: cefTRIAXone SODIUM 2,000 MG in DEXTROSE 5% MINI-B 100 ML IV SCH (16:00)
--- NOTE | 2023-08-04 16:17 | Infectious Disease Consult ---
Date of Service August 04, 2023 Telehealth Information I performed this visit using a real-time telehealth connection between my location and the patients location ([facility]). After connecting through interactive tele-video, patient was identified by name and date of and/or wristband check.Patient (or authorized healthcare independent sales representative) was informed that this was a telemedicine visit and it was being conducted confidentially over secure lines. My office door was closed and no one else was present in the room with me.Patient (or authorized healthcare independent sales representative) provided consent to proceed with the visit, expressed an understanding of privacy and security of the telemedicine visit, and gave permission to have a hospital independent sales representative in the room in order to assist with the visit and to conduct portions of the visit, as needed. I informed the patient (or authorized healthcare independent sales representative) that I reviewed their record and presented the opportunity for them to ask any questions regarding the visit today. The patient agreed to participate. Assessment & Plan (1) Headache: (2) History of Lyme disease: (3) Fatigue: Plan - It's very reasonable to keep on Ceftriaxone 2 g IV daily for now pending the lyme WB test. CSF analysis might not be impressive in late lyme and I wouldn't be surprised if the PCR is negative. Nonetheless, If the WB test comes back negative, it will be less likely to be Lyme meningitis. Though, we might end up treating for Lyme meningitis regardless. - If the patient is sexually active, please consider sending for HIV and syphilis screen. - Thank you for involving us in the care of Ms. Land. We will continue to follow. History of Present Illness History of Present Illness Ms. Land is a 18-year-old young lady with medical history of type 1 diabetes, major depressive disorder and autism spectrum disorder who was admitted with [facility] on 08/01 because of headache which was suspected to be secondary to Lyme disease (based on outpatient serology). Her headache had been going on for around 3 weeks prior to presentation which she described as dull aching, located in the occipital area and radiating to the temples. She also felt weak and unable to get out from bed. The condition was not associated with any localized neurologic symptoms, dizziness, blurry vision, fever or chills, or neck stiffness but she did report photophobia. Per the mother, she had a history of Lyme disease early in October 2021 and had similar clinical picture but the headache less intensive than now. Because she had a lot of nausea and vomiting with Doxycycline then, she was treated with amoxicillin instead for 14 days. Recommendation was also associated with generalized fatigue and body aches. On presentation, she was tachycardic and hypertensive; otherwise, the rest of the vitals were within normal limits. Initial blood work-up showed no leukocytosis (however, it bumped up to 15.6 the next day). Chemistry was not impressive except for elevated blood sugar. He had an LP performed on 08/03 which showed 1 nucleated cell with normal glucose and protein and negative meningitis encephalitis panel. Lyme test was sent which showed positive screen; however, the Western blot is still pending. ID team was consulted for further recommendations especially given the concern for Lyme meningitis. During todays encounter, she still had a headache with similar intensity as well as generalized weakness and fatigue. Allergies Allergy/AdvReac Type Severity Reaction Status Date / Time peanut Allergy Unknown Unverified 08/01/23 19:24 Home Medications Medication Instructions Recorded Confirmed Type insulin aspart U-100 100 unit/mL 48 unit continuous subcutaneous 10/23/21 08/01/23 History subcutaneous solution (Novolog infusion DAILY U-100 Insulin aspart) bupropion HCl 150 mg 24 hr tablet, 150 mg PO QAM 08/01/23 08/01/23 History extended release magnesium 200 mg tablet 400 mg PO DAILY 08/01/23 08/01/23 History melatonin 10 mg tablet 20 mg PO HS 08/01/23 08/01/23 History riboflavin (vitamin B2) 400 mg 400 mg PO DAILY 08/01/23 08/01/23 History tablet sertraline 25 mg tablet 37.5 mg PO QPM 08/01/23 08/01/23 History Patient History Medical History (Updated 08/04/23 @ 16:20 by Devika Montesinos MD) Alteration in sensory perception Autism spectrum H/o Lyme disease Major depressive disorder Patellofemoral pain syndrome of left knee Type I diabetes mellitus Surgical History (Updated 08/01/23 @ 20:12 by Saira Dumont DO) No pertinent past surgical history Family History Father Thyroid disease Grandmother Thyroid disease Social History Smoking Status: Never smoker Second Hand Exposure: No; Do You Dip or Chew Tobacco: No; Tobacco Cessation Education Requested by Patient: No Hx Alcohol Use: No Hx Substance Use: No Preferred Language: Greenlandic Communication Ability: Effective Plant Etiologist Required: No Beliefs That Will Affect Care: Church Current Living Situation: Parent Other Information That Helps Us Care for You: No Feels Safe at Home: Yes Safety Concerns: Feels Safe At This Time Assistive Devices: None Review of Systems Constitutional:fatigue, but no fever or chills HEENT:no sore throat, no nasal discharge Cardiovascular:no chest pain, or palpitations Respiratory:no shortness of breath, no cough Gastrointestinal:Nausea, but no vomiting, diarrhea or abdominal pain :No dysuria or hesitancy, no urinary discharge Musculoskeletal/Skin: no body aches or rash Neurologic: Headache butno dizziness Physical Exam A physical exam was not performed as the visit was conducted via Telemed. Results & Data Vital Signs (Past 12 Hours) Vital Signs Temp Pulse Pulse Resp BP Pulse Ox O2 Del Method 08/04/23 12:27 36.9 C 78 17 124/73 96 Room Air 08/04/23 09:16 36.7 C 72 18 125/74 98 Room Air 08/04/23 07:00 72 Laboratory Results 08/03: CSF opening pressure of 23 cmH2O. CSF analysis with 1 nucleated cells and negative meningitis encephalitis panel. 08/03: CSF culture negative to date Diagnostic Findings CTA head on 07/31 and MRI brain on 08/01 with no acute abnormalities.
[2023-08-04] MEDS: SERTRALINE HCL 50 MG TABLET PO SCH (21:55)
[2023-08-04] MEDS: MELATONIN 3 MG TAB PO PRN (22:16)
[2023-08-05] MEDS: ONDANSETRON INJ 2 MG/ML 2 ML VIAL IV PRN (01:23)
[2023-08-05] MEDS: ACETAMINOPHEN 325 MG TAB PO PRN ×3 (06:05→15:53)
[2023-08-05] MEDS: INSULIN, Rapid-Acting PUMP SC SCH ×4 (08:00→21:10)
[2023-08-05] MEDS ORDERED: KETOROLAC TROMETHAMINE 15 MG/ML VIAL IV ONE (08:38)
--- NOTE | 2023-08-05 08:39 | Hospitalist Progress Note ---
Date of Service August 05, 2023 Assessment & Plan (1) Headache: Plan: Likely related to acute Lyme disease, but another possibility may be side effect from Bupropion. She is on sertraline chronically and bupropion was started at the current dose of 150mg on 07/05, which is around the same time the headache began. Holding this now, and if her TRIMBLE improves, would add this back cautiously as it will not be clear which treatment helped at this point. MRI negative. Neuro consulted and requested LP which is negative with Lyme DNA pending. Opening pressure was 23 cm H2O. Cont with Ceftriaxone and pain medications/antiemetics as needed. Toradol 30mg IV with Compazine 10mg IV +/- Benadryl appears to be the most helpful for her. ID consulted - cont. w/ ceftriaxone for now (2) Lyme disease: Plan: Cont ceftriaxone empirically, ID consulted (3) Type I diabetes mellitus: Plan: chronic, controlled with recent A1C at goal. Cont to use insulin pump while in house. Will need BSG qACHS-currently at goal (4) Major depressive disorder: Plan: chronic, stable. Cont zoloft and hold bupropion (started early Jun) as above. As bupropion is new, and 34% of patients report TRIMBLE as a side effect of this medication, this may also be the culprit if TRIMBLE persists despite initial treatment outlined above. 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 (6) Autism spectrum: Plan: Per history. Very articulate and capable. Good historian. SCDs/ambulation Full Code Dispo- per previous provider - dc telemetry, cont hospitalization until symptoms start to improve and she becomes more functional. Of note, mother was updated by phone yesterday morning and states that bupropion was "very difficult for her to take" when she started it, causing other noted side effects. For this reason I would not restart this medication at this point. I feel the risk of withdrawa l is low given her short time on this drug and ongoing SSRI therapy with zoloft. Admission and Anticipated Discharge Date Admission Date: August 02, 2023 Subjective 18-year-old female presents with 3 weeks of a headache and decreased quality of life as a result. Lyme is positive, possible Lyme meningitis. Headache is still present and severity is about the same, described as coming up from her posterior neck. Still TRIMBLE provoked with sitting up in bed/changing po sition. No fever. s/p LP, Lyme pending. ID consulted. Review of Systems Review of Systems: All systems reviewed & are unremarkable except as noted in Subjective Physical Exam Physical Exam: CONSTITUTIONAL: WNWD young F in NAD EYES: EOMI bilaterally, PERRL, normal conjunctivae, no scleral icterus ENT: external ear and nose normal, MMM NECK: trachea midline RESPIRATORY: clear to auscultation bilaterally, no crackles, rales or wheezes, normal respiratory effort CARDIOVASCULAR: regular rate and rhythm, S1 and 2 heard without murmurs, no JVD, no peripheral edema CHEST: inspection of chest normal GASTROINTESTINAL: soft, nontender, ND, no guarding MUSCULOSKELETAL: strength 5/5 throughout, head is normocephalic and atraumatic SKIN: warm and dry NEURO/PSYCH :awake alert oriented , answers appropriately, speech fluent, moves extremities Results & Data Results & Data Vital Signs (Past 12 Hours) Vital Signs Temp Pulse Resp BP Pulse Ox O2 Del Method 08/05/23 08:23 37.0 C 86 16 116/70 98 Room Air 08/05/23 01:19 36.6 C 89 16 133/73 99 Room Air Laboratory Results 08/05/23 08/05/23 08/05/23 Range/Units 11:24 08:53 07:56 Sodium 139 (136-145) mmol/L Potassium 3.9 (3.5-5.1) mmol/L Chloride 107 (98-107) mmol/L Carbon Dioxide 25 (21-32) mmol/L Anion Gap 7 (3-11) BUN 9 (6-23) mg/dl Creatinine 0.68 (0.6-1.2) mg/dl Est Cr Clr Drug Dosing 142.7 ml/min Est GFR ( Amer) 145.9 ml/min Est GFR (Non-Af Amer) 125.9 ml/min BUN/Creatinine Ratio 13.2 (10-20) Glucose 152 H (70-99(Fasting)) mg/dl POC Glucose 164 H 119 H (70-99) mg/dl Calcium 9.2 (8.6-10.3) mg/dl Phosphorus 4.0 (2.5-4.9) mg/dl Magnesium 1.9 (1.7-2.4) mg/dl 08/04/23 08/04/23 Range/Units 20:11 16:37 Sodium (136-145) mmol/L Potassium (3.5-5.1) mmol/L Chloride (98-107) mmol/L Carbon Dioxide (21-32) mmol/L Anion Gap (3-11) BUN (6-23) mg/dl Creatinine (0.6-1.2) mg/dl Est Cr Clr Drug Dosing ml/min Est GFR ( Amer) ml/min Est GFR (Non-Af Amer) ml/min BUN/Creatinine Ratio (10-20) Glucose (70-99(Fasting)) mg/dl POC Glucose 135 H 156 H (70-99) mg/dl Calcium (8.6-10.3) mg/dl Phosphorus (2.5-4.9) mg/dl Magnesium (1.7-2.4) mg/dl Medications Administered Current Inpatient Medications Acetaminophen (Acetaminophen 325 Mg Tab) 650 mg PO Q4H PRN PRN Reason: Pain or Fever Stop: 08/31/23 23:21 Last Admin: 08/05/23 06:05 Dose: 650 mg Al Hydrox/Mg Hydrox/Simethicone (Aluminum/Magnesium Susp 30 Ml Udc) 15 ml PO Q4H PRN PRN Reason: Dyspepsia Stop: 08/31/23 23:21 Dextrose (Dextrose 50% 50 Ml Syringe) 25 - 50 ml IV UD PRN; Protocol PRN Reason: Hypoglycemia Protocol Stop: 08/31/23 23:29 Glucagon (Glucagon For Inj 1 Mg Vial) 1 mg IM UD PRN; Protocol PRN Reason: Hypoglycemia Protocol Stop: 08/31/23 23:29 Glucose (Glucose 40% Gel 15 Gm Tube) 15 - 30 gm PO UD PRN; Protocol PRN Reason: Hypoglycemia Protocol Stop: 08/31/23 23:29 Glucose (Glucose 10 Tab/Tube) 4 - 8 tab PO UD PRN; Protocol PRN Reason: Hypoglycemia Protocol Stop: 08/31/23 23:29 Ceftriaxone Sodium 2,000 mg/ (Dextrose) 50 mls @ 100 mls/hr IV Q24H [facility]; Protocol Stop: 08/15/23 03:59 Insulin Aspart (Insulin, Rapid-Acting Pump) 1 each SC ACHS [facility]; Protocol Stop: 11/20/23 21:14 Last Admin: 08/04/23 21:55 Dose: 1 each Insulin Aspart (Insulin Aspart 100 Units/Ml Vial) 0 units SC PRN PRN PRN Reason: Pump Refill Use ONLY Stop: 08/31/23 23:29 Ketorolac Tromethamine (Ketorolac Tromethamine 15 Mg/Ml Vial) 15 mg IV NOW ONE Stop: 08/05/23 08:39 Magnesium Oxide (Magnesium Oxide 400 Mg Tab) 400 mg PO DAILY [facility] Stop: 09/01/23 08:59 Last Admin: 08/04/23 09:11 Dose: 400 mg Melatonin (Melatonin 3 Mg Tab) 18 mg PO HS PRN PRN Reason: Insomnia Stop: 08/31/23 23:29 Last Admin: 08/04/23 22:16 Dose: 18 mg Miscellaneous (Carbohydrates For Hypoglycemia ) 15 - 30 gm PO UD PRN PRN Reason: Hypoglycemia Treatment Stop: 08/31/23 23:29 Miscellaneous (Remove Lidoderm Patch) 1 each N/A QAM [facility] Stop: 09/01/23 03:59 Last Admin: 08/04/23 09:11 Dose: 1 each Ondansetron HCl (Ondansetron Inj 2 Mg/Ml 2 Ml Vial) 4 mg IV Q6H PRN PRN Reason: Nausea And Vomiting Stop: 09/01/23 08:17 Last Admin: 08/05/23 01:23 Dose: 4 mg Pantoprazole Sodium (Pantoprazole 40 Mg Tab) 40 mg PO QAM [facility] Stop: 09/03/23 10:14 Last Admin: 08/04/23 11:46 Dose: 40 mg Polyethylene Glycol (Polyethylene (Miralax) 17 Gm Pack) 17 gm PO DAILY PRN PRN Reason: Constipation Stop: 08/31/23 23:21 Sertraline HCl (Sertraline Hcl 50 Mg Tablet) 37.5 mg PO QPM [facility] Stop: 08/31/23 23:21 Last Admin: 08/04/23 21:55 Dose: 37.5 mg
[2023-08-05] MEDS: cefTRIAXone SODIUM 2,000 MG in DEXTROSE 5 % MINI-B 50 ML IV SCH (09:00)
[2023-08-05] MEDS: PANTOprazole 40 MG TAB PO SCH (09:01)
[2023-08-05] MEDS: MAGNESIUM OXIDE 400 MG TAB PO SCH (09:01)
[2023-08-05 09:41] LABS: BUN Creatinine Ratio 13.2 (10-20); Calcium 9.2 mg/dl (8.6-10.3); Creatinine Clr Calc Pharmacy 142.7 ml/min; Est GFR (African American) 145.9 ml/min; Est GFR (Non-African American) 125.9 ml/min; Magnesium 1.9 mg/dl (1.7-2.4); Potassium 3.9 mmol/L (3.5-5.1)
[2023-08-05] MEDS: KETOROLAC TROMETHAMINE 15 MG/ML VIAL IV PRN (17:36)
[2023-08-05 19:03] LABS: Lyme DNA PCR CSF or Synovial Not Detected (Not Detected); Lyme DNA Source CSF
[2023-08-05] MEDS: SERTRALINE HCL 50 MG TABLET PO SCH (19:39)
[2023-08-05] MEDS: MELATONIN 3 MG TAB PO PRN (19:40)
--- NOTE | 2023-08-05 22:48 | Electrocardiogram Report ---
Test Reason : Blood Pressure : / mmHG Vent. Rate : 086 BPM Atrial Rate : 086 BPM P-R Int : 138 ms QRS Dur : 088 ms QT Int : 374 ms P-R-T Axes : 066 090 018 degrees QTc Int : 447 ms Normal sinus rhythm Rightward axis Borderline ECG When compared with ECG of 02-AUG-2023 11:21, No significant change was found Confirmed by Dinh Gill ([id number] on 08/05/2023 10:48:27 PM Referred By: REFERRED SELF Confirmed By:Dinh Gill
[2023-08-06] MEDS: KETOROLAC TROMETHAMINE 15 MG/ML VIAL IV PRN ×2 (04:10→21:19)
[2023-08-06] MEDS: ACETAMINOPHEN 325 MG TAB PO PRN ×3 (06:32→18:04)
[2023-08-06 07:38] LABS: Hematocrit (blood only) 38.4 % (37.0-47.0); Hemoglobin 13.3 g/dl (12.0-16.0); Mean Corpuscular Hemoglobin 28.7 pg (25.0-34.0); Mean Corpuscular Hgb Conc 34.6 g/dL (32.0-36.0); Mean Corpuscular Volume 82.9 fL (80.0-100.0); Mean Platelet Volume 9.1 fL (9.4-12.4); Platelet Count 211 K/uL (130-400); RDW Coefficient of Variation 11.9 % (11.5-14.5); RDW Standard Deviation 35.5 fL (36.4-46.3); Red Blood Count 4.63 M/uL (4.20-5.40); White Blood Count 6.11 K/ul (4.8-10.8)
[2023-08-06 08:06] LABS: Anion Gap 6 (3-11); BUN Creatinine Ratio 16.1 (10-20); Blood Urea Nitrogen 10 mg/dl (6-23); Carbon Dioxide 26 mmol/L (21-32); Chloride 107 mmol/L (98-107); Creatinine Clr Calc Pharmacy 156.5 ml/min; Est GFR (African American) > 150.0 ml/min; Est GFR (Non-African American) 129.8 ml/min; Glucose 117 mg/dl (70-99(Fasting)); Magnesium 1.9 mg/dl (1.7-2.4); Phosphorus 4.2 mg/dl (2.5-4.9); Potassium 3.9 mmol/L (3.5-5.1); Sodium 139 mmol/L (136-145)
--- NOTE | 2023-08-06 08:36 | Hospitalist Progress Note ---
Date of Service August 06, 2023 Assessment & Plan (1) Headache: Plan: Likely related to acute Lyme disease, but another possibility may be side effect from Bupropion. She is on sertraline chronically and bupropion was started at the current dose of 150mg on 07/05, which is around the same time the headache began. Holding this now, and if her TRIMBLE improves, would add this back cautiously as it will not be clear which treatment helped at this point. MRI negative. Neuro consulted and requested LP which is negative with Lyme DNA pending. Opening pressure was 23 cm H2O. Cont with Ceftriaxone and pain medications/antiemetics as needed. Toradol 30mg IV with Compazine 10mg IV +/- Benadryl appears to be the most helpful for her. ID consulted - cont. w/ ceftriaxone for now (2) Lyme disease: Plan: Cont ceftriaxone empirically, ID consulted (3) Type I diabetes mellitus: Plan: chronic, controlled with recent A1C at goal. Cont to use insulin pump while in house. Will need BSG qACHS-currently at goal (4) Major depressive disorder: Plan: chronic, stable. Cont zoloft and hold bupropion (started early Jun) as above. As bupropion is new, and 34% of patients report TRIMBLE as a side effect of this medication, this may also be the culprit if TRIMBLE persists despite initial treatment outlined above. 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 (6) Autism spectrum: Plan: Per history. Very articulate and capable. Good historian. SCDs/ambulation Full Code Dispo- per previous provider - dc telemetry, cont hospitalization until symptoms start to improve and she becomes more functional. Of note, mother was updated by phone and states that bupropion was "very difficult for her to take" when she started it, causing other noted side effects. For this reason I would not restart this medication at this point. I feel the risk of withdrawal is low given her short time on this drug and ongoing SSRI therapy with zoloft. Admission and Anticipated Discharge Date Admission Date: August 02, 2023 Subjective 18-year-old female presents with 3 weeks of a headache and decreased quality of life as a result. Lyme is positive, possible Lyme meningitis. Headache is still present and severity is about the same, described as coming up from her posterior neck. Still TRIMBLE provoked with sitting up in bed/changing position. No fever. s/p LP, Lyme pending. ID consulted. Family at the bedside today and updated. Review of Systems Review of Systems: All systems reviewed & are unremarkable except as noted in Subjective Physical Exam Physical Exam: CONSTITUTIONAL: WNWD young F in NAD EYES: EOMI bilaterally, PERRL, normal conjunctivae, no scleral icterus ENT: external ear and nose normal, MMM NECK: trachea midline RESPIRATORY: clear to auscultation bilaterally, no crackles, rales or wheezes, normal respiratory effort CARDIOVASCULAR: regular rate and rhythm, S1 and 2 heard without murmurs, no JVD, no peripheral edema CHEST: inspection of chest normal GASTROINTESTINAL: soft, nontender, ND, no guarding MUSCULOSKELETAL: strength 5/5 throughout, head is normocephalic and atraumatic SKIN: warm and dry NEURO/PSYCH :awake alert oriented , answers appropriately, speech fluent, moves extremities Results & Data Results & Data Vital Signs (Past 12 Hours) Vital Signs Temp Pulse Resp BP Pulse Ox O2 Del Method 08/05/23 21:36 36.7 C 75 16 124/75 98 Room Air Laboratory Results 08/06/23 08/06/23 08/06/23 Range/Units 07:31 07:03 07:03 WBC 6.11 (4.8-10.8) K/ul RBC 4.63 (4.20-5.40) M/uL Hgb 13.3 (12.0-16.0) g/dl Hct 38.4 (37.0-47.0) % MCV 82.9 (80.0-100.0) fL MCH 28.7 (25.0-34.0) pg MCHC 34.6 (32.0-36.0) g/dL RDW Std Deviation 35.5 L (36.4-46.3) fL RDW Coeff of Blue 11.9 (11.5-14.5) % Plt Count 211 (130-400) K/uL MPV 9.1 L (9.4-12.4) fL Sodium 139 (136-145) mmol/L Potassium 3.9 (3.5-5.1) mmol/L Chloride 107 (98-107) mmol/L Carbon Dioxide 26 (21-32) mmol/L Anion Gap 6 (3-11) BUN 10 (6-23) mg/dl Creatinine 0.62 (0.6-1.2) mg/dl Est Cr Clr Drug Dosing 156.5 ml/min Est GFR ( Amer) > 150.0 ml/min Est GFR (Non-Af Amer) 129.8 ml/min BUN/Creatinine Ratio 16.1 (10-20) Glucose 117 H (70-99(Fasting)) mg/dl POC Glucose 112 H (70-99) mg/dl Calcium 9.0 (8.6-10.3) mg/dl Phosphorus 4.2 (2.5-4.9) mg/dl Magnesium 1.9 (1.7-2.4) mg/dl Fld Lyme DNA (PCR) (Not Detected) Lyme Specimen Source Lyme DNA Comment 08/05/23 08/05/23 08/05/23 Range/Units 20:35 16:39 11:24 WBC (4.8-10.8) K/ul RBC (4.20-5.40) M/uL Hgb (12.0-16.0) g/dl Hct (37.0-47.0) % MCV (80.0-100.0) fL MCH (25.0-34.0) pg MCHC (32.0-36.0) g/dL RDW Std Deviation (36.4-46.3) fL RDW Coeff of Blue (11.5-14.5) % Plt Count (130-400) K/uL MPV (9.4-12.4) fL Sodium (136-145) mmol/L Potassium (3.5-5.1) mmol/L Chloride (98-107) mmol/L Carbon Dioxide (21-32) mmol/L Anion Gap (3-11) BUN (6-23) mg/dl Creatinine (0.6-1.2) mg/dl Est Cr Clr Drug Dosing ml/min Est GFR ( Amer) ml/min Est GFR (Non-Af Amer) ml/min BUN/Creatinine Ratio (10-20) Glucose (70-99(Fasting)) mg/dl POC Glucose 118 H 96 164 H (70-99) mg/dl Calcium (8.6-10.3) mg/dl Phosphorus (2.5-4.9) mg/dl Magnesium (1.7-2.4) mg/dl Fld Lyme DNA (PCR) (Not Detected) Lyme Specimen Source Lyme DNA Comment 08/05/23 08/03/23 Range/Units 08:53 Unknown WBC (4.8-10.8) K/ul RBC (4.20-5.40) M/uL Hgb (12.0-16.0) g/dl Hct (37.0-47.0) % MCV (80.0-100.0) fL MCH (25.0-34.0) pg MCHC (32.0-36.0) g/dL RDW Std Deviation (36.4-46.3) fL RDW Coeff of Blue (11.5-14.5) % Plt Count (130-400) K/uL MPV (9.4-12.4) fL Sodium 139 (136-145) mmol/L Potassium 3.9 (3.5-5.1) mmol/L Chloride 107 (98-107) mmol/L Carbon Dioxide 25 (21-32) mmol/L Anion Gap 7 (3-11) BUN 9 (6-23) mg/dl Creatinine 0.68 (0.6-1.2) mg/dl Est Cr Clr Drug Dosing 142.7 ml/min Est GFR ( Amer) 145.9 ml/min Est GFR (Non-Af Amer) 125.9 ml/min BUN/Creatinine Ratio 13.2 (10-20) Glucose 152 H (70-99(Fasting)) mg/dl POC Glucose (70-99) mg/dl Calcium 9.2 (8.6-10.3) mg/dl Phosphorus 4.0 (2.5-4.9) mg/dl Magnesium 1.9 (1.7-2.4) mg/dl Fld Lyme DNA (PCR) Not Detected (Not Detected) Lyme Specimen Source CSF Lyme DNA Comment see note Medications Administered Current Inpatient Medications Acetaminophen (Acetaminophen 325 Mg Tab) 650 mg PO Q4H PRN PRN Reason: Pain or Fever Stop: 08/31/23 23:21 Last Admin: 08/06/23 06:32 Dose: 650 mg Al Hydrox/Mg Hydrox/Simethicone (Aluminum/Magnesium Susp 30 Ml Udc) 15 ml PO Q4H PRN PRN Reason: Dyspepsia Stop: 08/31/23 23:21 Dextrose (Dextrose 50% 50 Ml Syringe) 25 - 50 ml IV UD PRN; Protocol PRN Reason: Hypoglycemia Protocol Stop: 08/31/23 23:29 Glucagon (Glucagon For Inj 1 Mg Vial) 1 mg IM UD PRN; Protocol PRN Reason: Hypoglycemia Protocol Stop: 08/31/23 23:29 Glucose (Glucose 40% Gel 15 Gm Tube) 15 - 30 gm PO UD PRN; Protocol PRN Reason: Hypoglycemia Protocol Stop: 08/31/23 23:29 Glucose (Glucose 10 Tab/Tube) 4 - 8 tab PO UD PRN; Protocol PRN Reason: Hypoglycemia Protocol Stop: 08/31/23 23:29 Ceftriaxone Sodium 2,000 mg/ (Dextrose) 50 mls @ 100 mls/hr IV Q24H [facility]; Protocol Stop: 08/15/23 03:59 Last Infusion: 08/05/23 11:00 Dose: Infused Insulin Aspart (Insulin, Rapid-Acting Pump) 1 each SC ACHS [facility]; Protocol Stop: 08/31/23 21:14 Last Admin: 08/05/23 21:10 Dose: Not Given Insulin Aspart (Insulin Aspart 100 Units/Ml Vial) 0 units SC PRN PRN PRN Reason: Pump Refill Use ONLY Stop: 08/31/23 23:29 Ketorolac Tromethamine (Ketorolac Tromethamine 15 Mg/Ml Vial) 15 mg IV Q6H PRN PRN Reason: Pain Stop: 08/10/23 17:15 Last Admin: 08/06/23 04:10 Dose: 15 mg Magnesium Oxide (Magnesium Oxide 400 Mg Tab) 400 mg PO DAILY [facility] Stop: 09/01/23 08:59 Last Admin: 08/05/23 09:01 Dose: 400 mg Melatonin (Melatonin 3 Mg Tab) 18 mg PO HS PRN PRN Reason: Insomnia Stop: 08/31/23 23:29 Last Admin: 08/05/23 19:40 Dose: 18 mg Miscellaneous (Carbohydrates For Hypoglycemia ) 15 - 30 gm PO UD PRN PRN Reason: Hypoglycemia Treatment Stop: 08/31/23 23:29 Miscellaneous (Remove Lidoderm Patch) 1 each N/A QAM [facility] Stop: 09/01/23 03:59 Last Admin: 08/05/23 09:01 Dose: Not Given Ondansetron HCl (Ondansetron Inj 2 Mg/Ml 2 Ml Vial) 4 mg IV Q6H PRN PRN Reason: Nausea And Vomiting Stop: 09/01/23 08:17 Last Admin: 08/05/23 01:23 Dose: 4 mg Pantoprazole Sodium (Pantoprazole 40 Mg Tab) 40 mg PO QAM [facility] Stop: 09/03/23 10:14 Last Admin: 08/05/23 09:01 Dose: 40 mg Polyethylene Glycol (Polyethylene (Miralax) 17 Gm Pack) 17 gm PO DAILY PRN PRN Reason: Constipation Stop: 08/31/23 23:21 Sertraline HCl (Sertraline Hcl 50 Mg Tablet) 37.5 mg PO QPM [facility] Stop: 08/31/23 23:21 Last Admin: 08/05/23 19:39 Dose: 37.5 mg
[2023-08-06] MEDS: ONDANSETRON INJ 2 MG/ML 2 ML VIAL IV PRN (08:40)
[2023-08-06] MEDS: PANTOprazole 40 MG TAB PO SCH (09:08)
[2023-08-06] MEDS: MAGNESIUM OXIDE 400 MG TAB PO SCH (09:08)
[2023-08-06] MEDS: cefTRIAXone SODIUM 2,000 MG in DEXTROSE 5 % MINI-B 50 ML IV SCH (09:08)
[2023-08-06 09:49] LABS: 18KDIGG Band REACTIVE; 23KDIGG Band NON-REACTIVE; 23KDIGM Band REACTIVE; 28KDIGG Band REACTIVE; 30KDIGG Band REACTIVE; 39KDIGG Band REACTIVE; 39KDIGM Band NON-REACTIVE; 41KDIGG Band REACTIVE; 41KDIGM Band NON-REACTIVE; 45KDIGG Band NON-REACTIVE; 58KDIGG Band REACTIVE; 66KDIGG Band NON-REACTIVE; 93KDIGG Band NON-REACTIVE; Lyme Antibodies, WB IgG POSITIVE (NEGATIVE); Lyme Antibodies, WB IgM NEGATIVE (NEGATIVE)
[2023-08-06] MEDS: INSULIN, Rapid-Acting PUMP SC SCH ×4 (11:24→21:33)
[2023-08-06] MEDS ORDERED: PROCHLORPERAZINE 10 MG in SYRINGE 8 ML IV ONE (13:14)
[2023-08-06] MEDS: MELATONIN 3 MG TAB PO PRN (21:20)
[2023-08-06] MEDS: SERTRALINE HCL 50 MG TABLET PO SCH (21:20)
[2023-08-07] MEDS: ACETAMINOPHEN 325 MG TAB PO PRN ×5 (01:41→20:29)
[2023-08-07] MEDS: KETOROLAC TROMETHAMINE 15 MG/ML VIAL IV PRN ×3 (06:27→18:35)
[2023-08-07 06:58] LABS: BUN Creatinine Ratio 18.8 (10-20); Creatinine Clr Calc Pharmacy 151.6 ml/min; Est GFR (African American) 148.9 ml/min; Est GFR (Non-African American) 128.5 ml/min; Magnesium 1.9 mg/dl (1.7-2.4); Phosphorus 5.2 mg/dl (2.5-4.9); Potassium 4.1 mmol/L (3.5-5.1)
[2023-08-07] MEDS: ONDANSETRON INJ 2 MG/ML 2 ML VIAL IV PRN ×2 (07:16→14:13)
--- NOTE | 2023-08-07 08:03 | Hospitalist Progress Note ---
Date of Service August 07, 2023 Assessment & Plan (1) Headache: Plan: Likely related to acute Lyme disease, but another possibility may be side effect from Bupropion. She is on sertraline chronically and bupropion was started at the current dose of 150mg on 07/05, which is around the same time the headache began. Holding this now, and if her TRIMBLE improves, would add this back cautiously as it will not be clear which treatment helped at this point. MRI negative. Neuro consulted and requested LP which is negative with Lyme DNA pending. Opening pressure was 23 cm H2O. Cont with Ceftriaxone and pain medications/antiemetics as needed. Toradol 30mg IV with Compazine 10mg IV +/- Benadryl - was helpful however toradol not helpful today. Pt feels her body feels more tense and making TRIMBLE worse. Heating pad, one dose of oxycodone 5 and baclofen provided - pt seemed improved after this Cont. to closely monitor. ID consulted - cont. w/ ceftriaxone for now (2) Lyme disease: Plan: Cont ceftriaxone empirically, ID consulted (3) Type I diabetes mellitus: Plan: chronic, controlled with recent A1C at goal. Cont to use insulin pump while in house. Will need BSG qACHS-currently at goal (4) Major depressive disorder: Plan: chronic, stable. Cont zoloft and hold bupropion (started early Jun) as above. As bupropion is new, and 34% of patients report TRIMBLE as a side effect of this medication, this may also be the culprit if TRIMBLE persists despite initial treatment outlined above. 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 (6) Autism spectrum: Plan: Per history. Very articulate and capable. Good historian. SCDs/ambulation Full Code Admission and Anticipated Discharge Date Admission Date: August 02, 2023 Subjective 18-year-old female presents with 3 weeks of a headache and decreased quality of life as a result. Lyme is positive, possible Lyme meningitis. Headache is still present and severity is about the same, described as coming up from her posterior neck. No fever. s/p LP, Lyme pending. ID consulted. Review of Systems Review of Systems: All systems reviewed & are unremarkable except as noted in Subjective Physical Exam Physical Exam: CONSTITUTIONAL: WNWD young F in NAD EYES: EOMI bilaterally, PERRL, normal conjunctivae, no scleral icterus ENT: external ear and nose normal, MMM NECK: trachea midline RESPIRATORY: clear to auscultation bilaterally, no crackles, rales or wheezes, normal respiratory effort CARDIOVASCULAR: regular rate and rhythm, S1 and 2 heard without murmurs, no JVD, no peripheral edema CHEST: inspection of chest normal GASTROINTESTINAL: soft, nontender, ND, no guarding MUSCULOSKELETAL: strength 5/5 throughout, head is normocephalic and atraumatic SKIN: warm and dry NEURO/PSYCH :awake alert oriented , answers appropriately, speech fluent, moves extremities Results & Data Results & Data Vital Signs (Past 12 Hours) Vital Signs Temp Pulse Resp BP Pulse Ox O2 Del Method 08/07/23 07:34 36.5 C 70 16 105/66 97 Room Air 08/06/23 21:06 36.4 C L 74 16 109/68 97 Room Air Laboratory Results 08/07/23 08/07/23 08/06/23 Range/Units 07:53 05:54 21:04 Sodium 138 (136-145) mmol/L Potassium 4.1 (3.5-5.1) mmol/L Chloride 106 (98-107) mmol/L Carbon Dioxide 25 (21-32) mmol/L Anion Gap 7 (3-11) BUN 12 (6-23) mg/dl Creatinine 0.64 (0.6-1.2) mg/dl Est Cr Clr Drug Dosing 151.6 ml/min Est GFR ( Amer) 148.9 ml/min Est GFR (Non-Af Amer) 128.5 ml/min BUN/Creatinine Ratio 18.8 (10-20) Glucose 112 H (70-99(Fasting)) mg/dl POC Glucose 97 115 H (70-99) mg/dl Calcium 9.0 (8.6-10.3) mg/dl Phosphorus 5.2 H (2.5-4.9) mg/dl Magnesium 1.9 (1.7-2.4) mg/dl Lyme IgG (Western Blot) (NEGATIVE) Lyme IgG 18 kDa Band Lyme IgG 23 kDa Band Lyme IgG 28 kDa Band Lyme IgG 30 kDa Band Lyme IgG 39 kDa Band Lyme IgG 41 kDa Band Lyme IgG 45 kDa Band Lyme IgG 58 kDa Band Lyme IgG 66 kDa Band Lyme IgG 93 kDa Band Lyme IgM Ab (WB) (NEGATIVE) Lyme IgM 23 kDa Band Lyme IgM 39 kDa Band Lyme IgM 41 kDa Band 08/06/23 08/06/23 08/06/23 Range/Units 16:52 11:37 07:03 Sodium 139 (136-145) mmol/L Potassium 3.9 (3.5-5.1) mmol/L Chloride 107 (98-107) mmol/L Carbon Dioxide 26 (21-32) mmol/L Anion Gap 6 (3-11) BUN 10 (6-23) mg/dl Creatinine 0.62 (0.6-1.2) mg/dl Est Cr Clr Drug Dosing 156.5 ml/min Est GFR ( Amer) > 150.0 ml/min Est GFR (Non-Af Amer) 129.8 ml/min BUN/Creatinine Ratio 16.1 (10-20) Glucose 117 H (70-99(Fasting)) mg/dl POC Glucose 113 H 167 H (70-99) mg/dl Calcium 9.0 (8.6-10.3) mg/dl Phosphorus 4.2 (2.5-4.9) mg/dl Magnesium 1.9 (1.7-2.4) mg/dl Lyme IgG (Western Blot) (NEGATIVE) Lyme IgG 18 kDa Band Lyme IgG 23 kDa Band Lyme IgG 28 kDa Band Lyme IgG 30 kDa Band Lyme IgG 39 kDa Band Lyme IgG 41 kDa Band Lyme IgG 45 kDa Band Lyme IgG 58 kDa Band Lyme IgG 66 kDa Band Lyme IgG 93 kDa Band Lyme IgM Ab (WB) (NEGATIVE) Lyme IgM 23 kDa Band Lyme IgM 39 kDa Band Lyme IgM 41 kDa Band 08/01/23 Range/Units 13:59 Sodium (136-145) mmol/L Potassium (3.5-5.1) mmol/L Chloride (98-107) mmol/L Carbon Dioxide (21-32) mmol/L Anion Gap (3-11) BUN (6-23) mg/dl Creatinine (0.6-1.2) mg/dl Est Cr Clr Drug Dosing ml/min Est GFR ( Amer) ml/min Est GFR (Non-Af Amer) ml/min BUN/Creatinine Ratio (10-20) Glucose (70-99(Fasting)) mg/dl POC Glucose (70-99) mg/dl Calcium (8.6-10.3) mg/dl Phosphorus (2.5-4.9) mg/dl Magnesium (1.7-2.4) mg/dl Lyme IgG (Western Blot) POSITIVE A (NEGATIVE) Lyme IgG 18 kDa Band REACTIVE A Lyme IgG 23 kDa Band NON-REACTIVE Lyme IgG 28 kDa Band REACTIVE A Lyme IgG 30 kDa Band REACTIVE A Lyme IgG 39 kDa Band REACTIVE A Lyme IgG 41 kDa Band REACTIVE A Lyme IgG 45 kDa Band NON-REACTIVE Lyme IgG 58 kDa Band REACTIVE A Lyme IgG 66 kDa Band NON-REACTIVE Lyme IgG 93 kDa Band NON-REACTIVE Lyme IgM Ab (WB) NEGATIVE (NEGATIVE) Lyme IgM 23 kDa Band REACTIVE A Lyme IgM 39 kDa Band NON-REACTIVE Lyme IgM 41 kDa Band NON-REACTIVE Medications Administered Current Inpatient Medications Acetaminophen (Acetaminophen 325 Mg Tab) 650 mg PO Q4H PRN PRN Reason: Pain or Fever Stop: 08/31/23 23:21 Last Admin: 08/07/23 06:27 Dose: 650 mg Al Hydrox/Mg Hydrox/Simethicone (Aluminum/Magnesium Susp 30 Ml Udc) 15 ml PO Q4H PRN PRN Reason: Dyspepsia Stop: 08/31/23 23:21 Dextrose (Dextrose 50% 50 Ml Syringe) 25 - 50 ml IV UD PRN; Protocol PRN Reason: Hypoglycemia Protocol Stop: 08/31/23 23:29 Glucagon (Glucagon For Inj 1 Mg Vial) 1 mg IM UD PRN; Protocol PRN Reason: Hypoglycemia Protocol Stop: 08/31/23 23:29 Glucose (Glucose 40% Gel 15 Gm Tube) 15 - 30 gm PO UD PRN; Protocol PRN Reason: Hypoglycemia Protocol Stop: 08/31/23 23:29 Glucose (Glucose 10 Tab/Tube) 4 - 8 tab PO UD PRN; Protocol PRN Reason: Hypoglycemia Protocol Stop: 08/31/23 23:29 Ceftriaxone Sodium 2,000 mg/ (Dextrose) 50 mls @ 100 mls/hr IV Q24H [facility]; Protocol Stop: 08/15/23 03:59 Last Infusion: 08/06/23 09:40 Dose: Infused Insulin Aspart (Insulin, Rapid-Acting Pump) 1 each SC ACHS [facility]; Protocol Stop: 08/31/23 21:14 Last Admin: 08/06/23 21:33 Dose: Not Given Insulin Aspart (Insulin Aspart 100 Units/Ml Vial) 0 units SC PRN PRN PRN Reason: Pump Refill Use ONLY Stop: 08/31/23 23:29 Ketorolac Tromethamine (Ketorolac Tromethamine 15 Mg/Ml Vial) 15 mg IV Q6H PRN PRN Reason: Pain Stop: 08/10/23 17:15 Last Admin: 08/07/23 06:27 Dose: 15 mg Magnesium Oxide (Magnesium Oxide 400 Mg Tab) 400 mg PO DAILY [facility] Stop: 09/01/23 08:59 Last Admin: 08/06/23 09:08 Dose: 400 mg Melatonin (Melatonin 3 Mg Tab) 18 mg PO HS PRN PRN Reason: Insomnia Stop: 08/31/23 23:29 Last Admin: 08/06/23 21:20 Dose: 18 mg Miscellaneous (Carbohydrates For Hypoglycemia ) 15 - 30 gm PO UD PRN PRN Reason: Hypoglycemia Treatment Stop: 08/31/23 23:29 Miscellaneous (Remove Lidoderm Patch) 1 each N/A QAM [facility] Stop: 09/01/23 03:59 Last Admin: 08/06/23 11:24 Dose: Not Given Ondansetron HCl (Ondansetron Inj 2 Mg/Ml 2 Ml Vial) 4 mg IV Q6H PRN PRN Reason: Nausea And Vomiting Stop: 09/01/23 08:17 Last Admin: 08/07/23 07:16 Dose: 4 mg Pantoprazole Sodium (Pantoprazole 40 Mg Tab) 40 mg PO QAM [facility] Stop: 09/03/23 10:14 Last Admin: 08/06/23 09:08 Dose: 40 mg Polyethylene Glycol (Polyethylene (Miralax) 17 Gm Pack) 17 gm PO DAILY PRN PRN Reason: Constipation Stop: 08/31/23 23:21 Sertraline HCl (Sertraline Hcl 50 Mg Tablet) 37.5 mg PO QPM [facility] Stop: 08/31/23 23:21 Last Admin: 08/06/23 21:20 Dose: 37.5 mg
[2023-08-07] MEDS: INSULIN, Rapid-Acting PUMP SC SCH ×4 (08:34→20:32)
[2023-08-07] MEDS: PANTOprazole 40 MG TAB PO SCH (08:36)
[2023-08-07] MEDS: cefTRIAXone SODIUM 2,000 MG in DEXTROSE 5 % MINI-B 50 ML IV SCH (08:36)
[2023-08-07] MEDS: MAGNESIUM OXIDE 400 MG TAB PO SCH (08:36)
[2023-08-07] MEDS: POLYETHYLENE (MIRALAX) 17 GM PACK PO PRN (13:35)
[2023-08-07] MEDS ORDERED: oxyCODONE HCL IR 5 MG TAB (IMMEDIATE RELEASE) PO STA (14:26)
[2023-08-07] MEDS ORDERED: BACLOFEN 10 MG TAB PO ONE (15:08)
[2023-08-07] MEDS: SERTRALINE HCL 50 MG TABLET PO SCH (20:29)
[2023-08-07] MEDS: MELATONIN 3 MG TAB PO PRN (20:29)
[2023-08-08] MEDS: KETOROLAC TROMETHAMINE 15 MG/ML VIAL IV PRN ×4 (00:42→18:40)
[2023-08-08] MEDS: ACETAMINOPHEN 325 MG TAB PO PRN ×4 (04:23→17:30)
[2023-08-08 06:21] LABS: Appearance Urine Clear (Clear); Bacteria Urine Automated Negative (Negative); Bilirubin Urine Negative (Negative); Blood Urine Negative (Negative); Color Urine Yellow; Epithelial Cell Urine Auto >30 /lpf (0-5); Glucose Urine UA Negative (Negative); Ketones Urine Trace (Negative); Leukocyte Esterase Urine 1+ (Negative); Nitrite Urine Negative (Negative); Protein Urine Trace (Negative); RBC Urine Automated 0-4 /hpf (0-4); Specific Gravity Urine 1.017 (1.000-1.030); Urobilinogen Urine Negative (Negative)
[2023-08-08 07:12] LABS: BUN Creatinine Ratio 17.2 (10-20); Calcium 9.1 mg/dl (8.6-10.3); Creatinine Clr Calc Pharmacy 151.6 ml/min; Est GFR (African American) 148.9 ml/min; Est GFR (Non-African American) 128.5 ml/min; Potassium 4.1 mmol/L (3.5-5.1)
[2023-08-08] MEDS: ONDANSETRON INJ 2 MG/ML 2 ML VIAL IV PRN (07:50)
[2023-08-08] MEDS: cefTRIAXone SODIUM 2,000 MG in DEXTROSE 5 % MINI-B 50 ML IV SCH (08:17)
[2023-08-08] MEDS: PANTOprazole 40 MG TAB PO SCH (08:22)
[2023-08-08] MEDS: INSULIN, Rapid-Acting PUMP SC SCH ×4 (08:25→20:09)
[2023-08-08] MEDS: MAGNESIUM OXIDE 400 MG TAB PO SCH (10:47)
[2023-08-08] MEDS: BACLOFEN 10 MG TAB PO PRN ×2 (11:58→19:57)
--- NOTE | 2023-08-08 13:49 | Hospitalist Progress Note ---
Date of Service August 08, 2023 Assessment & Plan (1) Headache: Plan: Likely related to acute Lyme disease but another possibility may be side effect from Bupropion. She is on sertraline chronically and bupropion was started at the current dose of 150mg on 07/05, which is around the same time the headache began. Holding this now and if her TRIMBLE improves MRI negative. Neuro consulted and requested LP which is negative with Lyme DNA pending. Opening pressure was 23 cm H2O. Cont with Ceftriaxone and pain medications/antiemetics as needed. ID evaluation noted Since patient reported improvement with baclofen yesterday, will continue this for now and monitor (2) Lyme disease: Plan: Continue ceftriaxone as above (3) Type I diabetes mellitus: Plan: Chronic, controlled with recent A1C at goal. Cont to use insulin pump while in house. Will need BSG qACHS (4) Major depressive disorder: Plan: Chronic, stable. Cont zoloft and hold bupropion (started early Jun) as above. Bupropion held as above (5) Alteration in sensory perception: (6) Autism spectrum: Plan: Per history. Very articulate and capable. Good historian. SCDs/ambulation Full Code I spent a total of 35 minutes coordinating, documenting and providing care for this patient excluding time spent in performance of separately billed services Admission and Anticipated Discharge Date Admission Date: August 02, 2023 Subjective Patient seen and examined Reports headache and upper neck pain, moderate, not referred at this time Reports that baclofen received yesterday helped Denied nausea at this time Denied blurred vision Denied chest pain, cough, SOB, dysuria, freq, urgency, diarrhea, abd pain Physical Exam Constitutional: + well hydrated; no acute distress Eyes: PERRL, conjunctivae normal, anicteric sclerae ENMT: external ear and nose normal, oropharynx normal Respiratory: normal respiratory effort, lungs clear to auscultation Cardiovascular: RRR, no murmur, no edema Gastrointestinal (Abdomen): normal bowel sounds, soft, nontender, no hepatosplenomegaly Musculoskeletal: no cyanosis or clubbing, extremities motor strength 5/5 Neurologic: PERRL, EOMI, accommodation nl, no face palsy, no dysarthria Psychiatric: A+Ox3, euthymic affect Results & Data Results & Data Vital Signs (Past 12 Hours) Vital Signs Temp Pulse Resp BP Pulse Ox O2 Del Method 08/08/23 07:11 36.6 C 80 17 122/71 99 Room Air Laboratory Results Abnormal lab results 08/07/23 08/07/23 08/08/23 Range/Units 16:49 20:18 05:40 Glucose (70-99(Fasting)) mg/dl POC Glucose 118 H 179 H (70-99) mg/dl Urine Protein Trace H (Negative) Urine Ketones Trace H (Negative) Ur Leukocyte Esterase 1+ H (Negative) Urine WBC (Auto) 5-10 H (0-5) /hpf U Epithel Cells (Auto) >30 H (0-5) /lpf Urine Yeast Budding A (None Prsent) 08/08/23 08/08/23 08/08/23 Range/Units 06:08 07:55 11:45 Glucose 123 H (70-99(Fasting)) mg/dl POC Glucose 180 H 170 H (70-99) mg/dl Urine Protein (Negative) Urine Ketones (Negative) Ur Leukocyte Esterase (Negative) Urine WBC (Auto) (0-5) /hpf U Epithel Cells (Auto) (0-5) /lpf Urine Yeast (None Prsent)
[2023-08-08] MEDS: SERTRALINE HCL 50 MG TABLET PO SCH (19:57)
[2023-08-08] MEDS: MELATONIN 3 MG TAB PO PRN (19:58)
[2023-08-08] MEDS: ADVANCED PROBIOTIC 1250 MG CAPSULE PO SCH (20:03)
[2023-08-09] MEDS: ACETAMINOPHEN 325 MG TAB PO PRN ×4 (00:35→20:05)
[2023-08-09] MEDS: KETOROLAC TROMETHAMINE 15 MG/ML VIAL IV PRN ×4 (00:35→18:36)
[2023-08-09] MEDS: ONDANSETRON INJ 2 MG/ML 2 ML VIAL IV PRN ×2 (02:42→08:31)
[2023-08-09] MEDS ORDERED: HYDROmorphone INJ 0.5 MG/0.5 ML SYR IV STA (02:52)
--- NOTE | 2023-08-09 07:45 | Hospitalist Progress Note ---
Date of Service August 09, 2023 Assessment & Plan (1) Headache: Plan: Likely related to acute Lyme disease but another possibility may be side effect from Bupropion. She is on sertraline chronically and bupropion was started at the current dose of 150mg on 07/05, which is around the same time the headache began. Holding this now and if her TRIMBLE improves MRI negative. Neuro consulted and requested LP which is negative with Lyme. Opening pressure was 23 cm H2O. Cont with Ceftriaxone and pain medications/antiemetics as needed. ID evaluation noted - cont. ceftriaxone, can finish course w/ amoxicillin , however not clear that this is lyme meningitis Headache does not seem to be improving. Discussed w/ neurology again today- 08/09, (Dr. Dyer)- will order MRV and discussed different medication management options. Also discussed w/ pharmacy giving DHG - very concerned d/t possible side effects. Re-discussed w/ neuro - will hold off on DHG, cont. others (2) Lyme disease: Plan: Continue ceftriaxone as above (3) Type I diabetes mellitus: Plan: Chronic, controlled with recent A1C at goal. Cont to use insulin pump while in house. Will need BSG qACHS (4) Major depressive disorder: Plan: Chronic, stable. Cont zoloft and hold bupropion (started early Jun) as above. Bupropion held as above (5) Alteration in sensory perception: (6) Autism spectrum: Plan: Per history. Very articulate and capable. Good historian. SCDs/ambulation Full Code Admission and Anticipated Discharge Date Admission Date: August 02, 2023 Subjective 18-year-old female presents with 3 weeks of a headache and decreased quality of life as a result. Lyme is positive, possible Lyme meningitis. Headache is still present and severity is about the same, described as coming up from her posterior neck. Worse when sitting up. No fever. s/p LP, ID consulted. Neurology consulted. Discussed w/ neurology again today (Dr. Dyer) - recommend MRV and and discussed medication management. MRV ordered Review of Systems Review of Systems: All systems reviewed & are unremarkable except as noted in Subjective Physical Exam Physical Exam: CONSTITUTIONAL: WNWD young F in NAD EYES: EOMI bilaterally, PERRL, normal conjunctivae, no scleral icterus ENT: external ear and nose normal, MMM NECK: trachea midline RESPIRATORY: clear to auscultation bilaterally, no crackles, rales or wheezes, normal respiratory effort CARDIOVASCULAR: regular rate and rhythm, S1 and 2 heard without murmurs, no JVD, no peripheral edema CHEST: inspection of chest normal GASTROINTESTINAL: soft, nontender, ND, no guarding MUSCULOSKELETAL: strength 5/5 throughout, head is normocephalic and atraumatic SKIN: warm and dry NEURO/PSYCH :awake alert oriented , answers appropriately, speech fluent, moves extremities Results & Data Results & Data Vital Signs (Past 12 Hours) Vital Signs Temp Pulse Resp BP Pulse Ox O2 Del Method 08/09/23 07:31 36.5 C 68 16 128/80 98 Room Air 08/08/23 20:10 Room Air 08/08/23 19:51 36.8 C 78 16 132/79 98 Room Air Laboratory Results 08/09/23 08/09/23 08/09/23 Range/Units 16:44 11:51 08:10 WBC 7.54 (4.8-10.8) K/ul RBC 4.67 (4.20-5.40) M/uL Hgb 13.4 (12.0-16.0) g/dl Hct 39.4 (37.0-47.0) % MCV 84.4 (80.0-100.0) fL MCH 28.7 (25.0-34.0) pg MCHC 34.0 (32.0-36.0) g/dL RDW Std Deviation 36.0 L (36.4-46.3) fL RDW Coeff of Blue 11.9 (11.5-14.5) % Plt Count 233 (130-400) K/uL MPV 9.3 L (9.4-12.4) fL Sodium (136-145) mmol/L Potassium (3.5-5.1) mmol/L Chloride (98-107) mmol/L Carbon Dioxide (21-32) mmol/L Anion Gap (3-11) BUN (6-23) mg/dl Creatinine (0.6-1.2) mg/dl Est Cr Clr Drug Dosing ml/min Est GFR ( Amer) ml/min Est GFR (Non-Af Amer) ml/min BUN/Creatinine Ratio (10-20) Glucose (70-99(Fasting)) mg/dl POC Glucose 158 H 149 H (70-99) mg/dl Calcium (8.6-10.3) mg/dl Phosphorus (2.5-4.9) mg/dl Magnesium (1.7-2.4) mg/dl 08/09/23 08/09/23 08/08/23 Range/Units 08:10 07:56 19:46 WBC (4.8-10.8) K/ul RBC (4.20-5.40) M/uL Hgb (12.0-16.0) g/dl Hct (37.0-47.0) % MCV (80.0-100.0) fL MCH (25.0-34.0) pg MCHC (32.0-36.0) g/dL RDW Std Deviation (36.4-46.3) fL RDW Coeff of Blue (11.5-14.5) % Plt Count (130-400) K/uL MPV (9.4-12.4) fL Sodium 136 (136-145) mmol/L Potassium 4.1 (3.5-5.1) mmol/L Chloride 105 (98-107) mmol/L Carbon Dioxide 24 (21-32) mmol/L Anion Gap 7 (3-11) BUN 9 (6-23) mg/dl Creatinine 0.65 (0.6-1.2) mg/dl Est Cr Clr Drug Dosing 149.3 ml/min Est GFR ( Amer) 148.1 ml/min Est GFR (Non-Af Amer) 127.8 ml/min BUN/Creatinine Ratio 13.8 (10-20) Glucose 126 H (70-99(Fasting)) mg/dl POC Glucose 122 H 117 H (70-99) mg/dl Calcium 9.1 (8.6-10.3) mg/dl Phosphorus 4.1 (2.5-4.9) mg/dl Magnesium 1.9 (1.7-2.4) mg/dl Medications Administered Current Inpatient Medications Acetaminophen (Acetaminophen 325 Mg Tab) 650 mg PO Q4H PRN PRN Reason: Pain or Fever Stop: 08/31/23 23:21 Last Admin: 08/09/23 04:55 Dose: 650 mg Al Hydrox/Mg Hydrox/Simethicone (Aluminum/Magnesium Susp 30 Ml Udc) 15 ml PO Q4H PRN PRN Reason: Dyspepsia Stop: 08/31/23 23:21 Baclofen (Baclofen 10 Mg Tab) 10 mg PO TID PRN PRN Reason: Muscle spasms Stop: 09/07/23 13:59 Last Admin: 08/08/23 19:57 Dose: 10 mg Dextrose (Dextrose 50% 50 Ml Syringe) 25 - 50 ml IV UD PRN; Protocol PRN Reason: Hypoglycemia Protocol Stop: 08/31/23 23:29 Glucagon (Glucagon For Inj 1 Mg Vial) 1 mg IM UD PRN; Protocol PRN Reason: Hypoglycemia Protocol Stop: 08/31/23 23:29 Glucose (Glucose 40% Gel 15 Gm Tube) 15 - 30 gm PO UD PRN; Protocol PRN Reason: Hypoglycemia Protocol Stop: 08/31/23 23:29 Glucose (Glucose 10 Tab/Tube) 4 - 8 tab PO UD PRN; Protocol PRN Reason: Hypoglycemia Protocol Stop: 08/31/23 23:29 Ceftriaxone Sodium 2,000 mg/ (Dextrose) 50 mls @ 100 mls/hr IV Q24H [facility]; Protocol Stop: 08/15/23 03:59 Last Infusion: 08/08/23 09:02 Dose: Infused Insulin Aspart (Insulin, Rapid-Acting Pump) 1 each SC ACHS [facility]; Protocol Stop: 08/31/23 21:14 Last Admin: 08/08/23 20:09 Dose: 1 each Insulin Aspart (Insulin Aspart 100 Units/Ml Vial) 0 units SC PRN PRN PRN Reason: Pump Refill Use ONLY Stop: 08/31/23 23:29 Ketorolac Tromethamine (Ketorolac Tromethamine 15 Mg/Ml Vial) 15 mg IV Q6H PRN PRN Reason: Pain Stop: 08/10/23 17:15 Last Admin: 08/09/23 06:16 Dose: 15 mg Lactobacillus Acidophilus (Advanced Probiotic 1250 Mg Capsule) 2 cap PO DAILY [facility] Stop: 09/07/23 18:14 Last Admin: 08/08/23 20:03 Dose: 2 cap Magnesium Oxide (Magnesium Oxide 400 Mg Tab) 400 mg PO DAILY [facility] Stop: 09/01/23 08:59 Last Admin: 08/08/23 10:47 Dose: 400 mg Melatonin (Melatonin 3 Mg Tab) 18 mg PO HS PRN PRN Reason: Insomnia Stop: 08/31/23 23:29 Last Admin: 08/08/23 19:58 Dose: 18 mg Miscellaneous (Carbohydrates For Hypoglycemia ) 15 - 30 gm PO UD PRN PRN Reason: Hypoglycemia Treatment Stop: 08/31/23 23:29 Miscellaneous (Remove Lidoderm Patch) 1 each N/A [facility] Stop: 09/01/23 03:59 Last Admin: 08/08/23 08:21 Dose: Not Given Ondansetron HCl (Ondansetron Inj 2 Mg/Ml 2 Ml Vial) 4 mg IV Q6H PRN PRN Reason: Nausea And Vomiting Stop: 09/01/23 08:17 Last Admin: 08/09/23 02:42 Dose: 4 mg Pantoprazole Sodium (Pantoprazole 40 Mg Tab) [facility] [place]: 09/03/23 10:14 Last Admin: 08/08/23 08:22 Dose: 40 mg Polyethylene Glycol (Polyethylene (Miralax) 17 Gm Pack) 17 gm PO DAILY PRN PRN Reason: Constipation Stop: 08/31/23 23:21 Last Admin: 08/07/23 13:35 Dose: 17 gm Sertraline HCl (Sertraline Hcl 50 Mg Tablet) 37.5 mg PO QPM [facility] Stop: 08/31/23 23:21 Last Admin: 08/08/23 19:57 Dose: 37.5 mg
[2023-08-09] MEDS: ADVANCED PROBIOTIC 1250 MG CAPSULE PO SCH (08:24)
[2023-08-09] MEDS: MAGNESIUM OXIDE 400 MG TAB PO SCH (08:24)
[2023-08-09] MEDS: PANTOprazole 40 MG TAB PO SCH (08:25)
[2023-08-09] MEDS: cefTRIAXone SODIUM 2,000 MG in DEXTROSE 5 % MINI-B 50 ML IV SCH (08:25)
[2023-08-09 09:15] LABS: Hematocrit (blood only) 39.4 % (37.0-47.0); Hemoglobin 13.4 g/dl (12.0-16.0); Mean Corpuscular Hemoglobin 28.7 pg (25.0-34.0); Mean Corpuscular Volume 84.4 fL (80.0-100.0); Mean Platelet Volume 9.3 fL (9.4-12.4); Platelet Count 233 K/uL (130-400); RDW Coefficient of Variation 11.9 % (11.5-14.5); Red Blood Count 4.67 M/uL (4.20-5.40); White Blood Count 7.54 K/ul (4.8-10.8)
[2023-08-09] MEDS: INSULIN, Rapid-Acting PUMP SC SCH ×4 (09:22→21:00)
[2023-08-09 09:33] LABS: BUN Creatinine Ratio 13.8 (10-20); Calcium 9.1 mg/dl (8.6-10.3); Creatinine Clr Calc Pharmacy 149.3 ml/min; Est GFR (African American) 148.1 ml/min; Est GFR (Non-African American) 127.8 ml/min; Magnesium 1.9 mg/dl (1.7-2.4); Phosphorus 4.1 mg/dl (2.5-4.9); Potassium 4.1 mmol/L (3.5-5.1)
[2023-08-09] MEDS ORDERED: diphenhydrAMINE 50 MG/ML VIAL IV STA (10:59)
[2023-08-09] MEDS ORDERED: PROCHLORPERAZINE 10 MG in SYRINGE 8 ML IV ONE (11:15)
--- NOTE | 2023-08-09 13:31 | Neurology Progress Note ---
Date of Service August 09, 2023 Assessment & Plan Admission and Anticipated Discharge Date Admission Date: August 02, 2023 Subjective Neurology Interval Update Note: A 18 yo year F admitted with headache x3 weeks. There was concerns if headache was due to acute meningitis on admission. Patient underwent CTA head and neck, MRI brain, and LP with ID consult. Imaging was Negative. CSF studies showed norm al protein and glucose. Opening pressure was 23 cm H20. At this point diagnosis seems most consistent with status migrainosus. Will arrange MRV to exclude CVT although unlikely. Would recommend optho follow up as outpatient for formal eye examine. Status Migrainosis - Recommend stating DHE protocol : 1 mg Q8hr Iv, w [place] 10 mg Iv and Benadryl 25 mg Q8hr IV. First dose of DHE will be 0.5 mg. Will plan for 6-doses max if patient tolerates. Can be associated wiht Nausea. - Other options include Solumedrol 500 mg IV Q12 Hr, Depakote 750 mg Iv Q12 hr - NS 75 cc /hr - Will plan to start Gabapentin 300 mg QhS on discharge - Outpatient Neuro follow up Discussed with Dr. Ramirez and pharmacist linesperson. Results & Data Vital Signs (Past 12 Hours) Vital Signs Temp Pulse Resp BP Pulse Ox O2 Del Method 08/09/23 07:31 36.5 C 68 16 128/80 98 Room Air
[2023-08-09] MEDS ORDERED: DIHYDROERGOTAMINE MESYLATE 1 MG/ML VIAL IV ONE (14:30)
--- NOTE | 2023-08-09 15:00 | Magnetic Resonance Report ---
MR venography head wo con HISTORY: 18 years-old Female Headache, r/o clot acute headache COMPARISON: Brain MRI 08/02/2023 TECHNIQUE: MRV without the use of IV contrast. FINDINGS: Unremarkable exam. No cerebral venous sinus thrombosis identified. Hypoplastic left transverse sinus. IMPRESSION: Normal MRV. ACT 112: Negative or not required by law. The above report was generated using voice recognition software. It may contain grammatical, syntax o r spelling errors. Electronically signed by: Dilip Washington M.D. 08/09/2023 2:58 PM
[2023-08-09] MEDS: diphenhydrAMINE 50 MG/ML VIAL IV SCH ×2 (16:08→21:01)
[2023-08-09] MEDS: METOCLOPRAMIDE HCL INJ 5 MG/ML 2 ML VIAL IV SCH ×2 (16:09→21:01)
[2023-08-09] MEDS: BACLOFEN 10 MG TAB PO PRN (20:05)
[2023-08-09] MEDS: SERTRALINE HCL 50 MG TABLET PO SCH (21:00)
[2023-08-09] MEDS ORDERED: DIHYDROERGOTAMINE MESYLATE 1 MG/ML VIAL IV SCH (22:00)
[2023-08-10] MEDS: KETOROLAC TROMETHAMINE 15 MG/ML VIAL IV PRN ×4 (00:29→19:26)
[2023-08-10] MEDS: ACETAMINOPHEN 325 MG TAB PO PRN ×4 (04:33→17:44)
[2023-08-10] MEDS: METOCLOPRAMIDE HCL INJ 5 MG/ML 2 ML VIAL IV SCH ×3 (05:22→20:54)
[2023-08-10] MEDS: diphenhydrAMINE 50 MG/ML VIAL IV SCH ×3 (05:23→20:54)
[2023-08-10] MEDS: BACLOFEN 10 MG TAB PO PRN ×3 (07:34→20:53)
[2023-08-10] MEDS: cefTRIAXone SODIUM 2,000 MG in DEXTROSE 5 % MINI-B 50 ML IV SCH (07:35)
[2023-08-10] MEDS: MAGNESIUM OXIDE 400 MG TAB PO SCH (07:36)
[2023-08-10] MEDS: PANTOprazole 40 MG TAB PO SCH (07:36)
[2023-08-10] MEDS: ADVANCED PROBIOTIC 1250 MG CAPSULE PO SCH (07:36)
[2023-08-10 07:57] LABS: Hematocrit (blood only) 38.9 % (37.0-47.0); Hemoglobin 13.2 g/dl (12.0-16.0); Mean Corpuscular Hemoglobin 28.9 pg (25.0-34.0); Mean Corpuscular Hgb Conc 33.9 g/dL (32.0-36.0); Mean Corpuscular Volume 85.1 fL (80.0-100.0); Mean Platelet Volume 9.3 fL (9.4-12.4); Platelet Count 214 K/uL (130-400); RDW Standard Deviation 36.5 fL (36.4-46.3); Red Blood Count 4.57 M/uL (4.20-5.40); White Blood Count 6.43 K/ul (4.8-10.8)
[2023-08-10 08:18] LABS: Est GFR (African American) 139.7 ml/min; Est GFR (Non-African American) 120.6 ml/min; Potassium 3.9 mmol/L (3.5-5.1)
[2023-08-10 08:19] LABS: BUN Creatinine Ratio 15.3 (10-20); Calcium 8.9 mg/dl (8.6-10.3); Creatinine Clr Calc Pharmacy 134.8 ml/min; Phosphorus 4.1 mg/dl (2.5-4.9)
[2023-08-10] MEDS: INSULIN, Rapid-Acting PUMP SC SCH ×4 (08:39→21:12)
[2023-08-10] MEDS ORDERED: PHARMACY GLYCEMIC MGMT CONSULT PRN (11:25)
[2023-08-10] MEDS: ONDANSETRON INJ 2 MG/ML 2 ML VIAL IV PRN ×2 (11:45→17:47)
[2023-08-10] MEDS: methylPREDNISolone 500 MG in DEXTROSE 5% 100 ML IV SCH ×2 (11:45→18:46)
--- NOTE | 2023-08-10 14:56 | Pharmacy Report ---
Pharmacy Glycemic Sign Off Nt - Date of Service August 10, 2023 - Assessment & Plan ASSESSMENT: * Pharmacy was consulted by Dr Gruber on 08/10/23 for glycemic control and to write orders per [facility] inpatient glycemic control protocol. Pearl will be receiving IV Solumedrol 500mg BID. She is maintained on a rapid acting insulin pump normally. Discussed with patient and family, wish to continue on insulin pump and understand how the steroids can effect glycemic control. * [employer] Trimmer to follow daily and adjust pump settings. Currently increasing insulin TDD by 20% to cover steroids. * Pharmacy does not follow pump patients per protocol and will sign off. If pump fails and needing to transition to SQ, recommendations are below. Feel free to re-consult pharmacy for additional assistance. PLAN FOR INPATIENT GLYCEMIC CONTROL IF INSULIN PUMP FAILS NEEDING TO TRANSITION TO SQ REGIMEN: * Normal insulin TDD ~ 51 units, 28 units basal daily (per childbirth educator note) * Basal insulin: Lantus 32 units SQ Daily, 20% increase while on IV Solumedrol * Continue NovoLog per scale ACHS/Q6hrs while NPO * Goal range = 110-140 mg/dl * CF = 25 mg/dl/unit * CR = 1 unit for ever 9 g CHO consumed * Pharmacy is signing off of glycemic consult and will no longer be making adjustments to inpatient regimen. Please feel free to re-consult if needed. Thank you.
[2023-08-10] MEDS ORDERED: Nursing to Pharmacy Communication SCH (17:45)
--- NOTE | 2023-08-10 19:50 | Hospitalist Progress Note ---
Date of Service August 10, 2023 Assessment & Plan (1) Headache: Plan: Likely related to acute Lyme disease but another possibility may be side effect from Bupropion. She is on sertraline chronically and bupropion was started at the current dose of 150mg on 07/05, which is around the same time the headache began. Holding this now and if her TRIMBLE improves MRI negative. Neuro consulted and requested LP which is negative with Lyme. Opening pressure was 23 cm H2O. Cont with Ceftriaxone and pain medications/antiemetics as needed. ID evaluation noted - cont. ceftriaxone, can finish course w/ amoxicillin , however not clear that this is lyme meningitis Headache does not seem to be improving. Discussed w/ neurology again on - 08/09, (Dr. Dyer)- will order MRV and discussed different medication management options. Also discussed w/ pharmacy giving DHG - very concerned d/t possible side effects. Re-discussed w/ neuro - will hold off on DHG, cont. others. MRV negative for clot (2) Lyme disease: Plan: Continue ceftriaxone as above (3) Type I diabetes mellitus: Plan: Chronic, controlled with recent A1C at goal. Cont to use insulin pump while in house. Will need BSG qACHS (4) Major depressive disorder: Plan: Chronic, stable. Cont zoloft and hold bupropion (started early Jun) as above. Bupropion held as above (5) Alteration in sensory perception: (6) Autism spectrum: Plan: Per history. Very articulate and capable. Good historian. SCDs/ambulation Full Code Admission and Anticipated Discharge Date Admission Date: August 02, 2023 Subjective 18-year-old female presents with 3 weeks of a headache and decreased quality of life as a result. Lyme is positive, ? possible Lyme meningitis. Headache is still present and severity is about the same, described as coming up from her posterior neck. Worse when sitting up. No fever. s/p LP, ID consulted. Neurology consulted. Discussed w/ neurology again yesterday (Dr. Dyer) - recommend MRV - negative for clot, and discussed medication management. will start solumedrol today Today pt says she was able to get some sleep w/ benadryl but unfortunately continues to have significant TRIMBLE. Review of Systems Review of Systems: All systems reviewed & are unremarkable except as noted in Subjective Physical Exam Physical Exam: CONSTITUTIONAL: WNWD young F in NAD EYES: EOMI bilaterally, PERRL, normal conjunctivae, no scleral icterus ENT: external ear and nose normal, MMM NECK: trachea midline RESPIRATORY: clear to auscultation bilaterally, no crackles, rales or wheezes, normal respiratory effort CARDIOVASCULAR: regular rate and rhythm, S1 and 2 heard without murmurs, no JVD, no peripheral edema CHEST: inspection of chest normal GASTROINTESTINAL: soft, nontender, ND, no guarding MUSCULOSKELETAL: strength 5/5 throughout, head is normocephalic and atraumatic SKIN: warm and dry NEURO/PSYCH :awake alert oriented , answers appropriately, speech fluent, moves extremities Results & Data Results & Data Vital Signs (Past 12 Hours) Vital Signs Temp Pulse Resp BP Pulse Ox O2 Del Method 08/10/23 14:33 36.6 C 88 15 105/63 96 Room Air Laboratory Results 08/10/23 08/10/23 08/10/23 Range/Units 16:47 14:03 11:30 WBC (4.8-10.8) K/ul RBC (4.20-5.40) M/uL Hgb (12.0-16.0) g/dl Hct (37.0-47.0) % MCV (80.0-100.0) fL MCH (25.0-34.0) pg MCHC (32.0-36.0) g/dL RDW Std Deviation (36.4-46.3) fL RDW Coeff of Blue (11.5-14.5) % Plt Count (130-400) K/uL MPV (9.4-12.4) fL Sodium (136-145) mmol/L Potassium (3.5-5.1) mmol/L Chloride (98-107) mmol/L Carbon Dioxide (21-32) mmol/L Anion Gap (3-11) BUN (6-23) mg/dl Creatinine (0.6-1.2) mg/dl Est Cr Clr Drug Dosing ml/min Est GFR ( Amer) ml/min Est GFR (Non-Af Amer) ml/min BUN/Creatinine Ratio (10-20) Glucose (70-99(Fasting)) mg/dl POC Glucose 281 H 134 H 159 H (70-99) mg/dl Calcium (8.6-10.3) mg/dl Phosphorus (2.5-4.9) mg/dl Magnesium (1.7-2.4) mg/dl 08/10/23 08/10/23 08/10/23 Range/Units 09:39 07:38 07:04 WBC (4.8-10.8) K/ul RBC (4.20-5.40) M/uL Hgb (12.0-16.0) g/dl Hct (37.0-47.0) % MCV (80.0-100.0) fL MCH (25.0-34.0) pg MCHC (32.0-36.0) g/dL RDW Std Deviation (36.4-46.3) fL RDW Coeff of Blue (11.5-14.5) % Plt Count (130-400) K/uL MPV (9.4-12.4) fL Sodium 137 (136-145) mmol/L Potassium 3.9 (3.5-5.1) mmol/L Chloride 107 (98-107) mmol/L Carbon Dioxide 25 (21-32) mmol/L Anion Gap 5 (3-11) BUN 11 (6-23) mg/dl Creatinine 0.72 (0.6-1.2) mg/dl Est Cr Clr Drug Dosing 134.8 ml/min Est GFR ( Amer) 139.7 ml/min Est GFR (Non-Af Amer) 120.6 ml/min BUN/Creatinine Ratio 15.3 (10-20) Glucose 68 L (70-99(Fasting)) mg/dl POC Glucose 243 H 93 (70-99) mg/dl Calcium 8.9 (8.6-10.3) mg/dl Phosphorus 4.1 (2.5-4.9) mg/dl Magnesium 2.0 (1.7-2.4) mg/dl 08/10/23 08/09/23 Range/Units 07:04 20:03 WBC 6.43 (4.8-10.8) K/ul RBC 4.57 (4.20-5.40) M/uL Hgb 13.2 (12.0-16.0) g/dl Hct 38.9 (37.0-47.0) % MCV 85.1 (80.0-100.0) fL MCH 28.9 (25.0-34.0) pg MCHC 33.9 (32.0-36.0) g/dL RDW Std Deviation 36.5 (36.4-46.3) fL RDW Coeff of Blue 12.0 (11.5-14.5) % Plt Count 214 (130-400) K/uL MPV 9.3 L (9.4-12.4) fL Sodium (136-145) mmol/L Potassium (3.5-5.1) mmol/L Chloride (98-107) mmol/L Carbon Dioxide (21-32) mmol/L Anion Gap (3-11) BUN (6-23) mg/dl Creatinine (0.6-1.2) mg/dl Est Cr Clr Drug Dosing ml/min Est GFR ( Amer) ml/min Est GFR (Non-Af Amer) ml/min BUN/Creatinine Ratio (10-20) Glucose (70-99(Fasting)) mg/dl POC Glucose 202 H (70-99) mg/dl Calcium (8.6-10.3) mg/dl Phosphorus (2.5-4.9) mg/dl Magnesium (1.7-2.4) mg/dl Medications Administered Current Inpatient Medications Acetaminophen (Acetaminophen 325 Mg Tab) 650 mg PO Q4H PRN PRN Reason: Pain or Fever Stop: 08/31/23 23:21 Last Admin: 08/10/23 17:44 Dose: 650 mg Al Hydrox/Mg Hydrox/Simethicone (Aluminum/Magnesium Susp 30 Ml Udc) 15 ml PO Q4H PRN PRN Reason: Dyspepsia Stop: 08/31/23 23:21 Baclofen (Baclofen 10 Mg Tab) 10 mg PO TID PRN PRN Reason: Muscle spasms Stop: 09/07/23 13:59 Last Admin: 08/10/23 16:37 Dose: 10 mg Dextrose (Dextrose 50% 50 Ml Syringe) 25 - 50 ml IV UD PRN; Protocol PRN Reason: Hypoglycemia Protocol Stop: 08/31/23 23:29 Diphenhydramine HCl (Diphenhydramine 50 Mg/Ml Vial) 25 mg IV Q8 [facility] Stop: 08/11/23 14:01 Last Admin: 08/10/23 13:46 Dose: 25 mg Glucagon (Glucagon For Inj 1 Mg Vial) 1 mg IM UD PRN; Protocol PRN Reason: Hypoglycemia Protocol Stop: 08/31/23 23:29 Glucose (Glucose 40% Gel 15 Gm Tube) 15 - 30 gm PO UD PRN; Protocol PRN Reason: Hypoglycemia Protocol Stop: 08/31/23 23:29 Glucose (Glucose 10 Tab/Tube) 4 - 8 tab PO UD PRN; Protocol PRN Reason: Hypoglycemia Protocol Stop: 08/31/23 23:29 Ceftriaxone Sodium 2,000 mg/ (Dextrose) 50 mls @ 100 mls/hr IV Q24H [facility]; Protocol Stop: 08/15/23 03:59 Last Infusion: 08/10/23 08:39 Dose: Infused Methylprednisolone 500 mg/ (Dextrose) 108 mls @ 312 mls/hr IV BID [facility] Stop: 08/12/23 21:21 Last Infusion: 08/10/23 19:15 Dose: Infused Insulin Aspart (Insulin, Rapid-Acting Pump) 1 each SC ACHS [facility]; Protocol Stop: 08/31/23 21:14 Last Admin: 08/10/23 17:09 Dose: 1 each Insulin Aspart (Insulin Aspart 100 Units/Ml Vial) 0 units SC PRN PRN PRN Reason: Pump Refill Use ONLY Stop: 08/31/23 23:29 Ketorolac Tromethamine (Ketorolac Tromethamine 15 Mg/Ml Vial) 15 mg IV Q6H PRN PRN Reason: Pain Stop: 08/15/23 18:40 Last Admin: 08/10/23 19:26 Dose: 15 mg Lactobacillus Acidophilus (Advanced Probiotic 1250 Mg Capsule) 2 cap PO DAILY [facility] Stop: 09/07/23 18:14 Last Admin: 08/10/23 07:36 Dose: 2 cap Magnesium Oxide (Magnesium Oxide 400 Mg Tab) 400 mg PO DAILY [facility] Stop: 09/01/23 08:59 Last Admin: 08/10/23 07:36 Dose: 400 mg Melatonin (Melatonin 3 Mg Tab) 18 mg PO HS PRN PRN Reason: Insomnia Stop: 08/31/23 23:29 Last Admin: 08/08/23 19:58 Dose: 18 mg Metoclopramide HCl (Metoclopramide Hcl Inj 5 Mg/Ml 2 Ml Vial) 10 mg IV Q8 [facility] Stop: 08/11/23 14:01 Last Admin: 08/10/23 13:47 Dose: 10 mg Miscellaneous (Carbohydrates For Hypoglycemia ) 15 - 30 gm PO UD PRN PRN Reason: Hypoglycemia Treatment Stop: 08/31/23 23:29 Miscellaneous (Remove Lidoderm Patch) 1 each N/A [facility] Stop: 09/01/23 03:59 Last Admin: 08/10/23 07:36 Dose: Not Given Ondansetron HCl (Ondansetron Inj 2 Mg/Ml 2 Ml Vial) 4 mg IV Q6H PRN PRN Reason: Nausea And Vomiting Stop: 09/01/23 08:17 Last Admin: 08/10/23 17:47 Dose: 4 mg Pantoprazole Sodium (Pantoprazole 40 Mg Tab) 40 mg PO [facility] Stop: 09/03/23 10:14 Last Admin: 08/10/23 07:36 Dose: 40 mg Polyethylene Glycol (Polyethylene (Miralax) 17 Gm Pack) 17 gm PO DAILY PRN PRN Reason: Constipation Stop: 08/31/23 23:21 Last Admin: 08/07/23 13:35 Dose: 17 gm Sertraline HCl (Sertraline Hcl 50 Mg Tablet) 37.5 mg PO QPM [facility] Stop: 08/31/23 23:21 Last Admin: 08/09/23 21:00 Dose: 37.5 mg
[2023-08-10] MEDS: SERTRALINE HCL 50 MG TABLET PO SCH (20:53)
[2023-08-10] MEDS: MELATONIN 3 MG TAB PO PRN (20:53)
[2023-08-11] MEDS: ACETAMINOPHEN 325 MG TAB PO PRN ×3 (00:40→21:17)
[2023-08-11] MEDS: KETOROLAC TROMETHAMINE 15 MG/ML VIAL IV PRN ×4 (02:03→21:17)
[2023-08-11] MEDS ORDERED: GLUCOSE 10 TAB/TUBE PO PRN (03:13)
[2023-08-11] MEDS ORDERED: DEXTROSE 50% 50 ML SYRINGE IV PRN (03:13)
[2023-08-11] MEDS ORDERED: GLUCAGON FOR INJ 1 MG VIAL SQ PRN (03:13)
[2023-08-11] MEDS ORDERED: CARBOHYDRATES FOR HYPOGLYCEMIA PO PRN (03:13)
[2023-08-11] MEDS ORDERED: GLUCOSE 40% GEL 15 GM TUBE PO PRN (03:13)
[2023-08-11] MEDS: diphenhydrAMINE 50 MG/ML VIAL IV SCH ×2 (05:20→14:03)
[2023-08-11] MEDS: METOCLOPRAMIDE HCL INJ 5 MG/ML 2 ML VIAL IV SCH ×2 (05:20→14:04)
[2023-08-11] MEDS: ADVANCED PROBIOTIC 1250 MG CAPSULE PO SCH (08:14)
[2023-08-11] MEDS: cefTRIAXone SODIUM 2,000 MG in DEXTROSE 5 % MINI-B 50 ML IV SCH (08:14)
[2023-08-11] MEDS: MAGNESIUM OXIDE 400 MG TAB PO SCH (08:14)
[2023-08-11] MEDS: PANTOprazole 40 MG TAB PO SCH (08:15)
[2023-08-11] MEDS: INSULIN, Rapid-Acting PUMP SC SCH ×6 (08:28→22:15)
[2023-08-11 08:51] LABS: BUN Creatinine Ratio 17.2 (10-20); Calcium 9.3 mg/dl (8.6-10.3); Creatinine Clr Calc Pharmacy 151.6 ml/min; Est GFR (African American) 148.9 ml/min; Est GFR (Non-African American) 128.5 ml/min; Magnesium 1.8 mg/dl (1.7-2.4); Potassium 3.8 mmol/L (3.5-5.1)
[2023-08-11] MEDS: methylPREDNISolone 500 MG in DEXTROSE 5% 100 ML IV SCH ×2 (09:09→21:10)
[2023-08-11] MEDS: ONDANSETRON INJ 2 MG/ML 2 ML VIAL IV PRN (10:12)
[2023-08-11] MEDS ORDERED: INSULIN ASPART 100 UNITS/ML VIAL SC PRN (12:08)
[2023-08-11] MEDS ORDERED: INSULIN, Rapid-Acting PUMP SC PRN (12:15)
--- NOTE | 2023-08-11 14:59 | Hospitalist Progress Note ---
Date of Service August 11, 2023 Assessment & Plan (1) Type I diabetes mellitus: Plan: Chronic, controlled with recent A1C at goal. Cont to use insulin pump while in house. Will need BSG qACHS (2) Headache: Plan: Likely related to acute Lyme disease but another possibility may be side effect from Bupropion. She is on sertraline chronically and bupropion was started at the current dose o f 150mg on 07/05, which is around the same time the headache began. Holding this now and if her TRIMBLE improves MRI negative. Neuro consulted and requested LP which is negative with Lyme. Opening pressure was 23 cm H2O. Cont with Ceftriaxone and pain medications/antiemetics as needed. ID evaluation noted - cont. ceftriaxone, can finish course w/ amoxicillin , however not clear that this is lyme meningitis Headache does not seem to be improving. Discussed w/ neurology again on - 08/09, (Dr. Dyer)- will order MRV and discussed different medication management options. Also discussed w/ pharmacy giving DHG - very concerned d/t possible side effects. Re-discussed w/ neuro - will hold off on DHG, cont. others. MRV negative for clot Started solumedrol 1,000 mg daily (as 500 iv dose bid) for migraine. So far, pt does not report much improvement but able to ambulate more and appetite improved. (3) Lyme disease: Plan: Continue ceftriaxone as above (4) Major depressive disorder: Plan: Chronic, stable. Cont zoloft and hold bupropion (started early Jun) as above. (5) Alteration in sensory perception: (6) Autism spectrum: Plan: Per history. Very articulate and capable. Good historian. SCDs/ambulation Full Code Admission and Anticipated Discharge Date Admission Date: August 02, 2023 Subjective 18-year-old female presents with 3 weeks of a headache and decreased quality of life as a result. Lyme is positive, ? possible Lyme meningitis. Headache is still present and severity is about the same, described as coming up from her posterior neck. Worse when sitting up. No fever. s/p LP, ID consulted. Neurology consulted. Discussed w/ neurology again yesterday (Dr. Dyer) - recommend MRV - negative for clot, and discussed medication management. started solumedrol yesterday She is able to get some sleep w/ benadryl and her appetite has improved, also says she is ambulating more, but unfortunately continues to have significant TRIMBLE. Review of Systems Review of Systems: All systems reviewed & are unremarkable except as noted in Subjective Physical Exam Physical Exam: CONSTITUTIONAL: WNWD young F in NAD EYES: EOMI bilaterally, PERRL, normal conjunctivae, no scleral icterus ENT: external ear and nose normal, MMM NECK: trachea midline RESPIRATORY: clear to auscultation bilaterally, no crackles, rales or wheezes, normal respiratory effort CARDIOVASCULAR: regular rate and rhythm, S1 and 2 heard without murmurs, no JVD, no peripheral edema CHEST: inspection of chest normal GASTROINTESTINAL: soft, nontender, ND, no guarding MUSCULOSKELETAL: strength 5/5 throughout, head is normocephalic and atraumatic SKIN: warm and dry NEURO/PSYCH :awake alert oriented , answers appropriately, speech fluent, moves extremities Results & Data Results & Data Vital Signs (Past 12 Hours) Vital Signs Temp Pulse Resp BP Pulse Ox O2 Del Method 08/11/23 08:55 36.6 C 61 18 126/78 97 Room Air Laboratory Results 08/11/23 08/11/23 08/11/23 Range/Units 11:48 07:55 07:27 Sodium 137 (136-145) mmol/L Potassium 3.8 (3.5-5.1) mmol/L Chloride 107 (98-107) mmol/L Carbon Dioxide 22 (21-32) mmol/L Anion Gap 8 (3-11) BUN 11 (6-23) mg/dl Creatinine 0.64 (0.6-1.2) mg/dl Est Cr Clr Drug Dosing 151.6 ml/min Est GFR ( Amer) 148.9 ml/min Est GFR (Non-Af Amer) 128.5 ml/min BUN/Creatinine Ratio 17.2 (10-20) Glucose 233 H (70-99(Fasting)) mg/dl POC Glucose 316 H* 217 H (70-99) mg/dl Calcium 9.3 (8.6-10.3) mg/dl Magnesium 1.8 (1.7-2.4) mg/dl 08/11/23 08/10/23 08/10/23 Range/Units 00:52 20:49 16:47 Sodium (136-145) mmol/L Potassium (3.5-5.1) mmol/L Chloride (98-107) mmol/L Carbon Dioxide (21-32) mmol/L Anion Gap (3-11) BUN (6-23) mg/dl Creatinine (0.6-1.2) mg/dl Est Cr Clr Drug Dosing ml/min Est GFR ( Amer) ml/min Est GFR (Non-Af Amer) ml/min BUN/Creatinine Ratio (10-20) Glucose (70-99(Fasting)) mg/dl POC Glucose 282 H 288 H 281 H (70-99) mg/dl Calcium (8.6-10.3) mg/dl Magnesium (1.7-2.4) mg/dl Medications Administered Current Inpatient Medications Acetaminophen (Acetaminophen 325 Mg Tab) 650 mg PO Q4H PRN PRN Reason: Pain or Fever Stop: 08/31/23 23:21 Last Admin: 08/11/23 04:48 Dose: 650 mg Al Hydrox/Mg Hydrox/Simethicone (Aluminum/Magnesium Susp 30 Ml Udc) 15 ml PO Q4H PRN PRN Reason: Dyspepsia Stop: 08/31/23 23:21 Baclofen (Baclofen 10 Mg Tab) 10 mg PO TID PRN PRN Reason: Muscle spasms Stop: 09/07/23 13:59 Last Admin: 08/10/23 20:53 Dose: 10 mg Dextrose (Dextrose 50% 50 Ml Syringe) 25 - 50 ml IV UD PRN; Protocol PRN Reason: Hypoglycemia Protocol Stop: 09/10/23 03:12 Glucagon (Glucagon For Inj 1 Mg Vial) 1 mg SQ UD PRN; Protocol PRN Reason: Hypoglycemia Protocol Stop: 09/10/23 03:12 Glucose (Glucose 10 Tab/Tube) 4 - 8 tab PO UD PRN; Protocol PRN Reason: Hypoglycemia Treatment Stop: 09/10/23 03:12 Glucose (Glucose 40% Gel 15 Gm Tube) 15 - 30 gm PO UD PRN; Protocol PRN Reason: Hypoglycemia Protocol Stop: 09/10/23 03:12 Ceftriaxone Sodium 2,000 mg/ (Dextrose) 50 mls @ 100 mls/hr IV Q24H [facility]; Protocol Stop: 08/15/23 03:59 Last Infusion: 08/11/23 08:45 Dose: Infused Methylprednisolone 500 mg/ (Dextrose) 108 mls @ 312 mls/hr IV BID [facility] Stop: 08/12/23 21:21 Last Infusion: 08/11/23 09:30 Dose: Infused Insulin Aspart (Insulin, Rapid-Acting Pump) 1 each SC ACHS [facility]; Protocol Stop: 08/31/23 21:14 Last Admin: 08/11/23 12:18 Dose: 1 each Insulin Aspart (Insulin Aspart 100 Units/Ml Vial) 0 units SC PRN PRN PRN Reason: Pump Refill Use ONLY Stop: 08/31/23 23:29 Insulin Aspart (Insulin, Rapid-Acting Pump) 1 each SC 0000,1030,1400,1900 [facility]; Protocol Stop: 09/10/23 13:59 Last Admin: 08/11/23 14:02 Dose: 1 each Insulin Aspart (Insulin, Rapid-Acting Pump) 1 each SC PRN PRN; Protocol PRN Reason: PATIENT BSG REQUEST Stop: 09/10/23 12:14 Ketorolac Tromethamine (Ketorolac Tromethamine 15 Mg/Ml Vial) 15 mg IV Q6H PRN PRN Reason: Pain Stop: 08/15/23 18:40 Last Admin: 08/11/23 08:05 Dose: 15 mg Lactobacillus Acidophilus (Advanced Probiotic 1250 Mg Capsule) 2 cap PO DAILY [facility] Stop: 09/07/23 18:14 Last Admin: 08/11/23 08:14 Dose: 2 cap Magnesium Oxide (Magnesium Oxide 400 Mg Tab) 400 mg PO DAILY [facility] Stop: 09/01/23 08:59 Last Admin: 08/11/23 08:14 Dose: 400 mg Melatonin (Melatonin 3 Mg Tab) 18 mg PO HS PRN PRN Reason: Insomnia Stop: 08/31/23 23:29 Last Admin: 08/10/23 20:53 Dose: 18 mg Miscellaneous (Remove Lidoderm Patch) 1 each N/A QAM [facility] Stop: 09/01/23 03:59 Last Admin: 08/11/23 08:16 Dose: 1 each Miscellaneous (Carbohydrates For Hypoglycemia ) 15 - 30 gm PO UD PRN PRN Reason: Hypoglycemia Protocol Stop: 09/10/23 03:12 Ondansetron HCl (Ondansetron Inj 2 Mg/Ml 2 Ml Vial) 4 mg IV Q6H PRN PRN Reason: Nausea And Vomiting Stop: 09/01/23 08:17 Last Admin: 08/11/23 10:12 Dose: 4 mg Pantoprazole Sodium (Pantoprazole 40 Mg Tab) 40 mg PO QAM [facility] Stop: 09/03/23 10:14 Last Admin: 08/11/23 08:15 Dose: 40 mg Polyethylene Glycol (Polyethylene (Miralax) 17 Gm Pack) 17 gm PO DAILY PRN PRN Reason: Constipation Stop: 08/31/23 23:21 Last Admin: 08/07/23 13:35 Dose: 17 gm Sertraline HCl (Sertraline Hcl 50 Mg Tablet) 37.5 mg PO QPM [facility] Stop: 08/31/23 23:21 Last Admin: 08/10/23 20:53 Dose: 37.5 mg
[2023-08-11] MEDS: BACLOFEN 10 MG TAB PO PRN (17:56)
[2023-08-11] MEDS: MELATONIN 3 MG TAB PO PRN (21:12)
[2023-08-11] MEDS: SERTRALINE HCL 50 MG TABLET PO SCH (21:12)
[2023-08-12] MEDS ORDERED: INSULIN ASPART 100 UNITS/ML VIAL SC SCH
[2023-08-12] MEDS: INSULIN, Rapid-Acting PUMP SC SCH ×8 (00:05→20:56)
[2023-08-12] MEDS ORDERED: INSULIN HUMAN REGULAR PER UNIT 4 UNITS in SYRINGE 3.96 ML IV ONE (00:15)
[2023-08-12] MEDS: ACETAMINOPHEN 325 MG TAB PO PRN ×5 (04:18→23:58)
[2023-08-12] MEDS: KETOROLAC TROMETHAMINE 15 MG/ML VIAL IV PRN ×4 (04:19→22:10)
[2023-08-12] MEDS: cefTRIAXone SODIUM 2,000 MG in DEXTROSE 5 % MINI-B 50 ML IV SCH (08:26)
[2023-08-12 08:28] LABS: Anion Gap 8 (3-11); Blood Urea Nitrogen 13 mg/dl (6-23); Calcium 8.9 mg/dl (8.6-10.3); Carbon Dioxide 25 mmol/L (21-32); Chloride 104 mmol/L (98-107); Creatinine Clr Calc Pharmacy 156.5 ml/min; Est GFR (African American) > 150.0 ml/min; Est GFR (Non-African American) 129.8 ml/min; Glucose 326 mg/dl (70-99(Fasting)); Magnesium 1.9 mg/dl (1.7-2.4); Phosphorus 4.1 mg/dl (2.5-4.9); Sodium 137 mmol/L (136-145)
[2023-08-12] MEDS: BACLOFEN 10 MG TAB PO PRN ×2 (08:28→20:20)
[2023-08-12] MEDS: ONDANSETRON INJ 2 MG/ML 2 ML VIAL IV PRN ×2 (08:29→13:22)
[2023-08-12] MEDS: PANTOprazole 40 MG TAB PO SCH (08:29)
[2023-08-12] MEDS: MAGNESIUM OXIDE 400 MG TAB PO SCH (08:29)
[2023-08-12] MEDS: ADVANCED PROBIOTIC 1250 MG CAPSULE PO SCH (08:29)
[2023-08-12] MEDS: methylPREDNISolone 500 MG in DEXTROSE 5% 100 ML IV SCH ×2 (08:39→20:23)
[2023-08-12] MEDS ORDERED: Nursing to Pharmacy Communication SCH (13:30)
--- NOTE | 2023-08-12 18:12 | Hospitalist Progress Note ---
Date of Service August 12, 2023 Assessment & Plan (1) Type I diabetes mellitus: Plan: Chronic, controlled with recent A1C at goal. Continue Insulin pump Monitor BGs (2) Headache: Plan: Likely status migrainosus Less likely related to Lyme's disease ? Secondary to bupropion She is on sertraline chronically and bupropion was started at the current dose of 150mg on 07/05, which is around the same time the headache began. Holding this now and if her TRIMBLE improves --MRI Brain:No acute abnormalities. --Head CTA:Unremarkable CTA of the head. --Neck CTA:Unremarkable CTA of the neck. --MRV Head:Normal MRV. --S/P lumbar puncture: CSF studies showed no growth -- Serology positive for Lyme's Continue IV Rocephin--can transition to amoxicillin upon discharge given history of intolerance to doxycycline in the past Appreciate neurology, ID input Continue IV Solu-Medrol Consider to add Depakote if no improvement Needs follow-up with neurology upon discharge Minimize IV pain meds as able (3) Lyme disease: Plan: Continue ceftriaxone as above (4) Major depressive disorder: Plan: Chronic, stable. Cont zoloft and hold bupropion (started early Jun) as above. (5) Alteration in sensory perception: (6) Autism spectrum: Plan: Per history. Very articulate and capable. Good historian. DVT Px: SCDs/ambulation Code Status Full Code Admission and Anticipated Discharge Date Admission Date: August 02, 2023 Subjective Patient is seen and examined at bedside States headache is about the same as yesterday Appetite, dizziness, weakness better Reports easy fatigability with minimal activity Denies any chest pain, dyspnea, abdominal pain No other complaints Review of Systems Review of Systems: All systems reviewed & are unremarkable except as noted in Subjective Physical Exam Physical Exam: Physical Exam: Vitals signs as noted above General Appearance:Moderately built and nourished, no apparent distress Head: normocephalic, Atraumatic Eyes: normal inspection, EOMI Neck: supple, Trachea midline Respiratory/Chest: Normal breath sounds, CTA, No accessory muscle use Cardiovascular: S1, S2, No murmur Abdomen/GI:Soft, Non tender, Bowel sounds present Extremities/Musculoskeletal:normal inspection, no edema Neurologic/Psych:AAOX3, grossly no focal neurological deficits Skin: normal color, warm Results & Data Results & Data Vital Signs (Past 12 Hours) Vital Signs Temp Pulse Resp BP Pulse Ox O2 Del Method 08/12/23 17:44 36.8 C 67 18 148/93 H 97 Room Air 08/12/23 08:48 36.8 C 84 18 141/80 H 96 Room Air Laboratory Results [facility] 08/12/23 07:32 Sodium 137 Potassium 4.0 Chloride 104 Carbon Dioxide 25 BUN 13 Creatinine 0.62 Glucose 326 H* Calcium 8.9
[2023-08-12] MEDS: SERTRALINE HCL 50 MG TABLET PO SCH (20:16)
[2023-08-12] MEDS: MELATONIN 3 MG TAB PO PRN (20:20)
[2023-08-13] MEDS: INSULIN, Rapid-Acting PUMP SC SCH ×9 (00:03→23:05)
[2023-08-13] MEDS: KETOROLAC TROMETHAMINE 15 MG/ML VIAL IV PRN ×3 (04:00→16:04)
[2023-08-13] MEDS: ACETAMINOPHEN 325 MG TAB PO PRN ×4 (04:37→21:12)
[2023-08-13] MEDS: BACLOFEN 10 MG TAB PO PRN ×3 (04:37→21:16)
[2023-08-13 07:58] LABS: Hematocrit (blood only) 35.2 % (37.0-47.0); Hemoglobin 12.4 g/dl (12.0-16.0); Mean Corpuscular Hemoglobin 29.3 pg (25.0-34.0); Mean Corpuscular Hgb Conc 35.2 g/dL (32.0-36.0); Mean Corpuscular Volume 83.2 fL (80.0-100.0); Platelet Count 236 K/uL (130-400); RDW Coefficient of Variation 11.9 % (11.5-14.5); RDW Standard Deviation 36.2 fL (36.4-46.3); Red Blood Count 4.23 M/uL (4.20-5.40); White Blood Count 18.39 K/ul (4.8-10.8)
[2023-08-13] MEDS: ONDANSETRON INJ 2 MG/ML 2 ML VIAL IV PRN ×2 (08:18→20:06)
[2023-08-13] MEDS: cefTRIAXone SODIUM 2,000 MG in DEXTROSE 5 % MINI-B 50 ML IV SCH (08:19)
[2023-08-13] MEDS: MAGNESIUM OXIDE 400 MG TAB PO SCH (08:19)
[2023-08-13] MEDS: ADVANCED PROBIOTIC 1250 MG CAPSULE PO SCH (08:19)
[2023-08-13] MEDS: PANTOprazole 40 MG TAB PO SCH (08:19)
[2023-08-13 08:23] LABS: Anion Gap 7 (3-11); BUN Creatinine Ratio 26.2 (10-20); Blood Urea Nitrogen 16 mg/dl (6-23); Calcium 8.9 mg/dl (8.6-10.3); Carbon Dioxide 27 mmol/L (21-32); Chloride 105 mmol/L (98-107); Creatinine Clr Calc Pharmacy 159.1 ml/min; Est GFR (African American) > 150.0 ml/min; Est GFR (Non-African American) 130.5 ml/min; Glucose 183 mg/dl (70-99(Fasting)); Potassium 3.6 mmol/L (3.5-5.1); Sodium 139 mmol/L (136-145)
[2023-08-13] MEDS: POLYETHYLENE (MIRALAX) 17 GM PACK PO PRN (14:33)
[2023-08-13] MEDS ORDERED: BUTALBITAL/ACETAMIN/CAFFEINE TAB PO ONE (16:58)
--- NOTE | 2023-08-13 17:59 | Hospitalist Progress Note ---
Date of Service August 13, 2023 Assessment & Plan (1) Type I diabetes mellitus: Plan: Chronic, controlled with recent A1C at goal. Continue Insulin pump Monitor BGs (2) Headache: Plan: Likely status migrainosus Less likely related to Lyme's disease ? Secondary to bupropion She is on sertraline chronically and bupropion was started at the current dose of 150mg on 07/05, which is around the same time the headache began. Holding this now and if her TRIMBLE improves --MRI Brain:No acute abnormalities. --Head CTA:Unremarkable CTA of the head. --Neck CTA:Unremarkable CTA of the neck. --MRV Head:Normal MRV. --S/P lumbar puncture: CSF studies showed no growth -- Serology positive for Lyme's Continue IV Rocephin--can transition to amoxicillin upon discharge given history of intolerance to doxycycline in the past Appreciate neurology, ID input Continue IV Solu-Medrol Consider to add Depakote if no improvement Needs follow-up with neurology upon discharge Minimize IV pain meds as able Discussed with neurology Dr. Holden today: Recommends no further investigations. Okay to try Gabapentin Started on gabapentin 300 mg at bedtime (3) Lyme disease: Plan: Continue ceftriaxone as above (4) Major depressive disorder: Plan: Chronic, stable. Cont zoloft and hold bupropion (started early Jun) as above. (5) Alteration in sensory perception: (6) Autism spectrum: Plan: Per history. Very articulate and capable. Good historian. DVT Px: SCDs/ambulation Code Status Full Code Admission and Anticipated Discharge Date Admission Date: August 02, 2023 Subjective Patient is seen and examined at bedside States headache is not much improved No new complaints Discussed with neurology today Denies any chest pain, dyspnea, abdominal pain Review of Systems Review of Systems: All systems reviewed & are unremarkable except as noted in Subjective Physical Exam Physical Exam: Physical Exam: Vitals signs as noted above General Appearance:Moderately built and nourished, no apparent distress Head: normocephalic, Atraumatic Eyes: normal inspection, EOMI Neck: supple, Trachea midline Respiratory/Chest: Normal breath sounds, CTA, No accessory muscle use Cardiovascular: S1, S2, No murmur Abdomen/GI:Soft, Non tender, Bowel sounds present Extremities/Musculoskeletal:normal inspection, no edema Neurologic/Psych:AAOX3, grossly no focal neurological deficits Skin: normal color, warm Results & Data Results & Data Vital Signs (Past 12 Hours) Vital Signs Temp Pulse Resp BP Pulse Ox O2 Del Method 08/13/23 15:18 36.9 C 62 18 126/78 95 Room Air 08/13/23 08:23 36.4 C L 65 18 119/70 100 Room Air Laboratory Results Short CBC 08/13/23 Range/Units 07:19 WBC 18.39 H (4.8-10.8) K/ul Hgb 12.4 (12.0-16.0) g/dl Hct 35.2 L (37.0-47.0) % Plt Count 236 (130-400) K/uL BMP 08/13/23 07:19 Sodium 139 Potassium 3.6 Chloride 105 Carbon Dioxide 27 BUN 16 Creatinine 0.61 Glucose 183 H Calcium 8.9
[2023-08-13] MEDS ORDERED: GABAPENTIN 300 MG CAP PO SCH (21:00)
[2023-08-13] MEDS: MELATONIN 3 MG TAB PO PRN (21:16)
[2023-08-13] MEDS: SERTRALINE HCL 50 MG TABLET PO SCH (21:52)
[2023-08-14] MEDS: ACETAMINOPHEN 325 MG TAB PO PRN ×4 (00:50→13:22)
[2023-08-14] MEDS: BACLOFEN 10 MG TAB PO PRN (04:01)
[2023-08-14] MEDS: ONDANSETRON INJ 2 MG/ML 2 ML VIAL IV PRN (07:51)
[2023-08-14 08:22] LABS: Hematocrit (blood only) 36.4 % (37.0-47.0); Hemoglobin 12.9 g/dl (12.0-16.0); Mean Corpuscular Hemoglobin 29.7 pg (25.0-34.0); Mean Corpuscular Hgb Conc 35.4 g/dL (32.0-36.0); Mean Corpuscular Volume 83.7 fL (80.0-100.0); Mean Platelet Volume 9.7 fL (9.4-12.4); Platelet Count 202 K/uL (130-400); RDW Coefficient of Variation 12.1 % (11.5-14.5); RDW Standard Deviation 37.2 fL (36.4-46.3); Red Blood Count 4.35 M/uL (4.20-5.40); White Blood Count 9.27 K/ul (4.8-10.8)
[2023-08-14 08:40] LABS: Anion Gap 5 (3-11); BUN Creatinine Ratio 21.3 (10-20); Blood Urea Nitrogen 13 mg/dl (6-23); Calcium 8.2 mg/dl (8.6-10.3); Carbon Dioxide 30 mmol/L (21-32); Chloride 106 mmol/L (98-107); Creatinine Clr Calc Pharmacy 159.1 ml/min; Est GFR (African American) > 150.0 ml/min; Est GFR (Non-African American) 130.5 ml/min; Glucose 151 mg/dl (70-99(Fasting)); Potassium 3.3 mmol/L (3.5-5.1); Sodium 141 mmol/L (136-145)
[2023-08-14] MEDS: INSULIN, Rapid-Acting PUMP SC SCH ×3 (08:55→12:49)
[2023-08-14] MEDS: ADVANCED PROBIOTIC 1250 MG CAPSULE PO SCH (08:56)
[2023-08-14] MEDS: PANTOprazole 40 MG TAB PO SCH (08:56)
[2023-08-14] MEDS: MAGNESIUM OXIDE 400 MG TAB PO SCH (08:56)
[2023-08-14] MEDS: cefTRIAXone SODIUM 2,000 MG in DEXTROSE 5 % MINI-B 50 ML IV SCH (08:58)
--- NOTE | 2023-08-14 09:45 | Hospitalist Progress Note ---
Date of Service August 14, 2023 Assessment & Plan (1) Type I diabetes mellitus: Plan: Chronic, controlled with recent A1C at goal. Continue Insulin pump Monitor BGs (2) Headache: Plan: Likely status migrainosus Less likely related to Lyme's disease ? Secondary to bupropion She is on sertraline chronically and bupropion was started at the current dose of 150mg on 07/05, which is around the same time the headache began. Holding this now and if her TRIMBLE improves --MRI Brain:No acute abnormalities. --Head CTA:Unremarkable CTA of the head. --Neck CTA:Unremarkable CTA of the neck. --MRV Head:Normal MRV. --S/P lumbar puncture: CSF studies showed no growth -- Serology positive for Lyme's Continue IV Rocephin--can transition to amoxicillin upon discharge given history of intolerance to doxycycline in the past Appreciate neurology, ID input Continue IV Solu-Medrol Consider to add Depakote if no improvement Needs follow-up with neurology upon discharge Continue vitamin B2, magnesium oxide Minimize IV pain meds as able Discussed with neurology Dr. Holden on 08/13/23: Recommends no further investigations. Okay to try Gabapentin Started on gabapentin 300 mg at bedtime Plan to discharge home today (3) Lyme disease: Plan: Continue ceftriaxone as above (4) Major depressive disorder: Plan: Chronic, stable. Cont zoloft and hold bupropion (started early Jun) as above. (5) Alteration in sensory perception: (6) Autism spectrum: Plan: Per history. Very articulate and capable. Good historian. DVT Px: SCDs/ambulation Code Status Full Code Disposition Home Admission and Anticipated Discharge Date Admission Date: August 02, 2023 Subjective Patient is seen and examined at bedside Headache is controlled No new complaints Prefers to be discharged home Denies any chest pain, dyspnea, abdominal pain Review of Systems Review of Systems: All systems reviewed & are unremarkable except as noted in Subjective Physical Exam Physical Exam: Physical Exam: Vitals signs as noted above General Appearance:Moderately built and nourished, no apparent distress Head: normocephalic, Atraumatic Eyes: normal inspection, EOMI Neck: supple, Trachea midline Respiratory/Chest: Normal breath sounds, CTA, No accessory muscle use Cardiovascular: S1, S2, No murmur Abdomen/GI:Soft, Non tender, Bowel sounds present Extremities/Musculoskeletal:normal inspection, no edema Neurologic/Psych:AAOX3, grossly no focal neurological deficits Skin: normal color, warm Results & Data Results & Data Vital Signs (Past 12 Hours) Vital Signs Temp Pulse Resp BP Pulse Ox O2 Del Method 08/14/23 07:55 36.7 C 68 16 132/81 98 Room Air Laboratory Results Short CBC 08/14/23 Range/Units 07:41 WBC 9.27 (4.8-10.8) K/ul Hgb 12.9 (12.0-16.0) g/dl Hct 36.4 L (37.0-47.0) % Plt Count 202 (130-400) K/uL BMP 08/14/23 07:41 Sodium 141 Potassium 3.3 L Chloride 106 Carbon Dioxide 30 BUN 13 Creatinine 0.61 Glucose 151 H Calcium 8.2 L
[2023-08-14] MEDS ORDERED: POTASSIUM CHLORIDE CRTAB 20 MEQ TABCR PO ONE (09:46)
--- NOTE | 2023-08-14 12:15 | Discharge Summary ---
Date of Service August 14, 2023 Admission HPI Per Admitting Provider 18 yo F presents with severe ongoing headache x 3 weeks. She was seen in the PCP office yesterday and was started on Imitrex with no success at controlling the headache. This is described as a pain that starts in the back of her head and radiates around to her temples. She has also been trying Motrin and Tylenol without success. She is a controlled Type I diabetic with stable blood sugars. A1C on 05/12/2023 was 6.9. On 07/30 she also connected with a primary care provider via telemedicine gave her magnesium and riboflavin without success. The patient notably tried chiropractic treatment x2 without success. She denied any blurry vision dizziness fevers or chills. There are no medication changes reported. Outpatient records reveal that she is also taking Zoloft and was recently placed on bupropion in early June after reporting a low energy level. 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 So she moved back. She lives in a single wide trailer on her parents property and eats at the house. Continues on bupropion and sertraline together. She reports a h/o Lyme disease in early 2021 and reported headache that wasn't as severe at that time. She had a significant fatigue issue and "was in bed for 8 months." She said what got her moving again was an antidepressant. She is also feeling fatigued again now, too, with this headache. She reports ongoing nausea and pain with sitting upright or standing upright. We reviewed the current labs and imaging with patient and mom together. Mom was at bedside and assisted with the history. All questions were answered to her satisfaction. We discussed a trial of fioricet and will give Zofran which has worked for her in the past for nausea. We discussed the plan for MR brain. We discussed the plan for neurology to see her. She reports her caffeine intake consists of one tea daily. She doesn't drink coffee or consistent sodas. She was also educated about medication overuse headache with OTC meds. She denies consistent use of Tylenol or Motrin. Admission Exam Per Admitting Provider CONSTITUTIONAL: WNWD, vitals as above, generally well-appearing, NAD EYES: EOMI bilaterally, PERRL, normal conjunctivae, no scleral icterus ENT: external ear and nose normal, MMM NECK: trachea midline RESPIRATORY: clear to auscultation bilaterally, no crackles, rales or wheezes, normal respiratory effort CARDIOVASCULAR: regular rate and rhythm, S1 and 2 heard without murmurs, gallops or rubs, no JVD, no peripheral edema CHEST: inspection of chest was normal GASTROINTESTINAL: soft, nontender, ND, no guarding MUSCULOSKELETAL: strength 5/5 throughout, head is normocephalic and atraumatic SKIN: warm and dry NEUROLOGIC: patellar DTRs 2+ bilat. PERRL, EOMI, no facial palsy, no dysarthria. Touch, pain and proprioception normal. CN 2-12 grossly intact, no sensory deficit, normal cognition, normal speech, no tremor PSYCHIATRIC: alert cooperative and oriented to person, place and time. Euthymic mood, makes good eye contact, language grossly intact, recent and remote memory grossly intact. Principal Diagnosis Intractable migraine Lyme disease Discharge Data Allergies Allergy/AdvReac Type Severity Reaction Status Date / Time peanut Allergy Unknown Unverified 08/01/23 19:24 Consultations 08/01/23 19:54 ED Decision to Admit Stat 08/01/23 23:22 Consult Neurology Routine 08/02/23 15:51 Consult Infectious Diseases Routine Procedures Performed Laboratory Results WBC 9.27 K/ul (4.8-10.8) 08/14/23 07:41 RBC 4.35 M/uL (4.20-5.40) 08/14/23 07:41 Hgb 12.9 g/dl (12.0-16.0) 08/14/23 07:41 Hct 36.4 % (37.0-47.0) L 08/14/23 07:41 MCV 83.7 fL (80.0-100.0) 08/14/23 07:41 MCH 29.7 pg (25.0-34.0) 08/14/23 07:41 MCHC 35.4 g/dL (32.0-36.0) 08/14/23 07:41 RDW Std Deviation 37.2 fL (36.4-46.3) 08/14/23 07:41 RDW Coeff of Blue 12.1 % (11.5-14.5) 08/14/23 07:41 Plt Count 202 K/uL (130-400) 08/14/23 07:41 MPV 9.7 fL (9.4-12.4) 08/14/23 07:41 Immature Gran % (Auto) 0.2 % 08/03/23 06:59 Neut % (Auto) 57.6 % 08/03/23 06:59 Lymph % (Auto) 32.8 % 08/03/23 06:59 Prentiss % (Auto) 6.9 % 08/03/23 06:59 Eos % (Auto) 1.6 % 08/03/23 06:59 Baso % (Auto) 0.9 % 08/03/23 06:59 Neut # (Auto) 3.27 K/uL (1.40-6.50) 08/03/23 06:59 Lymph # (Auto) 1.86 K/uL (1.20-3.40) 08/03/23 06:59 Prentiss # (Auto) 0.39 K/uL (0.11-0.59) 08/03/23 06:59 Eos # (Auto) 0.09 K/uL (0.00-0.50) 08/03/23 06:59 Baso # (Auto) 0.05 K/uL (0.00-0.20) 08/03/23 06:59 Immature Gran # (Auto) 0.01 K/uL (0.01-0.20) 08/03/23 06:59 ESR 7 mm/hr (0-20) 08/04/23 07:07 PT 11.5 Seconds (9.0-12.0) 08/01/23 13:59 INR 1.1 (0.9-1.1) 08/01/23 13:59 APTT 30.6 Seconds (21.0-31.0) 08/01/23 13:59 PTT Ratio 1.1 08/01/23 13:59 Sodium 141 mmol/L (136-145) 08/14/23 07:41 Potassium 3.3 mmol/L (3.5-5.1) L 08/14/23 07:41 Chloride 106 mmol/L (98-107) 08/14/23 07:41 Carbon Dioxide 30 mmol/L (21-32) 08/14/23 07:41 Anion Gap 5 (3-11) 08/14/23 07:41 BUN 13 mg/dl (6-23) 08/14/23 07:41 Creatinine 0.61 mg/dl (0.6-1.2) 08/14/23 07:41 Est Cr Clr Drug Dosing 159.1 ml/min 08/14/23 07:41 Est GFR ( Amer) > 150.0 ml/min 08/14/23 07:41 Est GFR (Non-Af Amer) 130.5 ml/min 08/14/23 07:41 BUN/Creatinine Ratio 21.3 (10-20) H 08/14/23 07:41 Glucose 151 mg/dl (70-99(Fasting)) H 08/14/23 07:41 POC Glucose 244 mg/dl (70-99) H 08/14/23 11:36 Calcium 8.2 mg/dl (8.6-10.3) L 08/14/23 07:41 Phosphorus 4.1 mg/dl (2.5-4.9) 08/12/23 07:32 Magnesium 1.9 mg/dl (1.7-2.4) 08/12/23 07:32 Total Bilirubin 0.6 mg/dl (0.2-1.0) 08/01/23 13:59 AST 13 U/L (13-39) 08/01/23 13:59 ALT 8 U/L (7-52) 08/01/23 13:59 Alkaline Phosphatase 44 U/L (34-104) 08/01/23 13:59 C-Reactive Protein < 0.50 mg/dl (0-0.5) 08/04/23 07:07 Total Protein 8.7 gm/dl (6.0-8.3) H 08/01/23 13:59 Albumin 5.2 gm/dl (3.4-5.0) H 08/01/23 13:59 Globulin 3.5 gm/dl (2.5-4.0) 08/01/23 13:59 Albumin/Globulin Ratio 1.5 (0.9-2) 08/01/23 13:59 HCG, Qual Negative (Negative) 08/01/23 13:59 Urine Color Yellow 08/08/23 05:40 Urine Appearance Clear (Clear) 08/08/23 05:40 Urine pH 6.0 (4.5-7.5) 08/08/23 05:40 Ur Specific [place] 1.017 (1.000-1.030) 08/08/23 05:40 Urine Protein Trace (Negative) H 08/08/23 05:40 Urine Glucose (UA) Negative (Negative) 08/08/23 05:40 Urine Ketones Trace (Negative) H 08/08/23 05:40 Urine Blood Negative (Negative) 08/08/23 05:40 Urine Nitrite Negative (Negative) 08/08/23 05:40 Urine Bilirubin Negative (Negative) 08/08/23 05:40 Urine Urobilinogen Negative (Negative) 08/08/23 05:40 Ur Leukocyte Esterase 1+ (Negative) H 08/08/23 05:40 Urine WBC (Auto) 5-10 /hpf (0-5) H 08/08/23 05:40 Urine RBC (Auto) 0-4 /hpf (0-4) 08/08/23 05:40 U Hyaline Cast (Auto) 1-5 /lpf (0-5) 08/08/23 05:40 U Epithel Cells (Auto) >30 /lpf (0-5) H 08/08/23 05:40 Urine Bacteria (Auto) Negative (Negative) 08/08/23 05:40 Urine Yeast Budding (None Prsent) A 08/08/23 05:40 Urine Test Negative (Negative) 08/01/23 22:57 Fld Lyme DNA (PCR) Not Detected (Not Detected) 08/03/23 Unknown Fluid Comment 08/03/23 Unknown CSF Appearance Clear 08/03/23 Unknown CSF Color Colorless 08/03/23 Unknown Xanthrochromic No xanthochromia 08/03/23 Unknown CSF WBC 1 (0-5) 08/03/23 Unknown CSF RBC 0 (0-) 08/03/23 Unknown CSF Cell Count Tube # 3 08/03/23 Unknown CSF Chemistry Tube # 1 08/03/23 Unknown CSF Glucose 67 mg/dl (40-70) 08/03/23 Unknown CSF Total Protein 33.2 mg/dl (15-45) 08/03/23 Unknown CSF C.neoform/gat PCR Not Detected (NotDetected) 08/03/23 Unknown CSF CMV DNA (PCR) Not Detected (NotDetected) 08/03/23 Unknown CSF Enterovirus (PCR) Not Detected (NotDetected) 08/03/23 Unknown CSF E. coli K1 (PCR) Not Detected (NotDetected) 08/03/23 Unknown CSF H. influenzae (PCR) Not Detected (NotDetected) 08/03/23 Unknown CSF HSV I (PCR) Not Detected (NotDetected) 08/03/23 Unknown CSF HSV II (PCR) Not Detected (NotDetected) 08/03/23 Unknown CSF HHV 6 (PCR) Not Detected (NotDetected) 08/03/23 Unknown CSF L.monocytogenes PCR Not Detected (NotDetected) 08/03/23 Unknown CSF N. meningitidis PCR Not Detected (NotDetected) 08/03/23 Unknown CSF Parechovirus (PCR) Not Detected (NotDetected) 08/03/23 Unknown CSF S. agalactiae (PCR) Not Detected (NotDetected) 08/03/23 Unknown CSF S. pneumoniae (PCR) Not Detected (NotDetected) 08/03/23 Unknown CSF VZV DNA (PCR) Not Detected (NotDetected) 08/03/23 Unknown Lyme Specimen Source CSF 08/03/23 Unknown Lyme Disease IgG Ab Positive (Negative) A 08/01/23 13:59 Lyme IgG (Western Blot) POSITIVE (NEGATIVE) A 08/01/23 13:59 Lyme IgG 18 kDa Band REACTIVE A 08/01/23 13:59 Lyme IgG 23 kDa Band NON-REACTIVE 08/01/23 13:59 Lyme IgG 28 kDa Band REACTIVE A 08/01/23 13:59 Lyme IgG 30 kDa Band REACTIVE A 08/01/23 13:59 Lyme IgG 39 kDa Band REACTIVE A 08/01/23 13:59 Lyme IgG 41 kDa Band REACTIVE A 08/01/23 13:59 Lyme IgG 45 kDa Band NON-REACTIVE 08/01/23 13:59 Lyme IgG 58 kDa Band REACTIVE A 08/01/23 13:59 Lyme IgG 66 kDa Band NON-REACTIVE 08/01/23 13:59 Lyme IgG 93 kDa Band NON-REACTIVE 08/01/23 13:59 Lyme IgM Ab (WB) NEGATIVE (NEGATIVE) 08/01/23 13:59 Lyme Disease IgM Ab Positive (Negative) A 08/01/23 13:59 Lyme IgM 23 kDa Band REACTIVE A 08/01/23 13:59 Lyme IgM 39 kDa Band NON-REACTIVE 08/01/23 13:59 Lyme IgM 41 kDa Band NON-REACTIVE 08/01/23 13:59 Lyme DNA Comment see note 08/03/[address] 08/01/23 13:30 CT OF THE HEAD WITHOUT CONTRAST CLINICAL HISTORY: Headache. COMPARISON STUDY: Head CT October 23, 2021. TECHNIQUE: Helical axial images of the head were obtained without IV contrast. Automated exposure control was utilized for the study. A dose lowering technique was utilized adhering to the principles of ALARA. FINDINGS: No acute intracranial hemorrhage, midline shift or mass effect is present. The ventricular system is unremarkable. The basal cisterns are patent. No extra-axial collections are present. There are no findings to suggest acute dural sinus thrombosis or acute territorial infarct. No significant calvarial abnormalities are present. Visualized portions of the sinuses and mastoid air cells are clear. IMPRESSION: No acute intracranial findings. ACT 112: Negative or not required by law. Electronically signed by: Christian Tao M.D. 08/01/2023 3:13 PM Head CTA 08/01/23 13:30 CTA ANGIOGRAPHY OF THE HEAD CLINICAL HISTORY: Headache. COMPARISON STUDY: No previous studies for comparison. TECHNIQUE: Helical axial images of the head were obtained following uneventful intravenous administration of 115 cc of Optiray. Sagittal and coronal reconstructions were viewed as well as maximal intensity projections on an independent 3-D workstation. Automated exposure control was utilized for the study. A dose lowering technique was utilized adhering to the principles of ALARA. FINDINGS: No acute intracranial hemorrhage is identified on the head CT which will be reported separately. The ventricular system is normal. Basal cisterns are patent. There are no extra axial collections. The bilateral M1, M2, A1 and A2 segments are patent. There is no intracranial aneurysm. There is no central vessel occlusion. Posterior circulation is intact. Major dural sinuses appear patent. IMPRESSION: Unremarkable CTA of the head. ACT 112: Negative or not required by law. Electronically signed by: Christian Tao M.D. 08/01/2023 3:24 PM Neck CTA 08/01/23 13:30 CT ANGIOGRAPHY OF THE NECK WITH CONTRAST CLINICAL HISTORY: Headache. COMPARISON STUDY: No previous studies for comparison. Technique: CT angiography of the carotid and vertebral arteries was obtained using Optiray and 3D reconstruction on an independent workstation. NASCET criteria was utilized. Automated exposure control was utilized for the study. A dose lowering technique was utilized adhering to the principles of ALARA. CT DOSE: 1190.9 mGy.cm Findings: Visualized portions of the lung apices are unremarkable. There is no cervical lymphadenopathy. There are no cervical spine fractures. The bilateral common carotid, cervical internal carotid and vertebral arteries are patent. No dissection, stenosis or aneurysm within the neck is present. IMPRESSION: Unremarkable CTA of the neck. ACT 112: Negative or not required by law. Electronically signed by: Christian Tao M.D. 08/01/2023 3:21 PM Brain MRI 08/02/23 10:08 MR brain wo con CLINICAL HISTORY: recurrent, unrelenting headache TECHNIQUE: Multiplanar and multisequence MR images of the brain were obtained without intravenous contrast. Comparison: None available at the time of this dictation. FINDINGS: No abnormal restricted diffusion is identified. The white matter is unremarkable. The ventricular system is normal in appearance. No mass is seen. There is no mass effect or midline shift. There is no evidence of acute intraparenchymal hemorrhage. No extra axial fluid collections are seen. The corpus callosum, pituitary gland, and cerebellar tonsils appear grossly unremarkable. Flow voids of the major intracranial arterial vessels are identified. The imaged portions of the paranasal sinuses, mastoid air cells, and orbits are unremarkable. IMPRESSION: No acute abnormalities. ACT 112: Negative or not required by law. Electronically signed by: Seven Bradshaw M.D. 08/02/2023 6:49 PM Lumbar Puncture 08/03/23 07:00 Fluoroscopic guided lumbar puncture INDICATION: Headache; Lyme's disease. Assess for meningitis PROCEDURE: Procedure and risks were explained. Informed consent was obtained. A final timeout was completed. The patient was placed prone on the fluoroscopic exam table. The lower lumbar region was prepped and draped in sterile fashion. 1% lidocaine was utilized for skin anesthesia. Utilizing fluoroscopic guidance, a 22-gauge needle was advanced into the intrathecal space at the L2-3 level. One spot image was obtained. Opening pressure was measured at 23 cm H20. Approximately 8 mL of clear CSF fluid was removed and sent to lab for analysis. The needle was removed and Band-Aid applied. The patient tolerated the procedure well. Vital signs will be monitored on the floor. Total fluoroscopy time 0.1 minutes. DAP is 0.990 mcGy/m2. IMPRESSION: Lumbar puncture as above. Performed, dictated, and signed by Gelacio Steele PA-C; to be co-signed by Dr. Christian Tao. Electronically signed by: Christian Tao M.D. 08/03/2023 5:19 PM Head/Brain Mag Res Venography 08/09/23 13:19 MR venography head wo con HISTORY: 18 years-old Female Headache, r/o clot acute headache COMPARISON: Brain MRI 08/02/2023 TECHNIQUE: MRV without the use of IV contrast. FINDINGS: Unremarkable exam. No cerebral venous sinus thrombosis identified. Hypoplastic left transverse sinus. IMPRESSION: Normal MRV. ACT 112: Negative or not required by law. The above report was generated using voice recognition software. It may contain grammatical, syntax or spelling errors. Electronically signed by: Dilip Washington M.D. 08/09/2023 2:58 PM Ordered Studies 08/01/23 13:30 CT angio head w con Stat CT angio neck with con Stat CT head/brain wo con Stat 08/02/23 10:08 MR brain wo con Routine 08/03/23 07:00 IR lumbar puncture diagnostic Routine 08/09/23 13:19 MR venography head wo con Routine Hospital Course (1) Type I diabetes mellitus: Chronic, controlled with recent A1C at goal. Continue Insulin pump Monitor BGs (2) Headache: Likely status migrainosus Less likely related to Lyme's disease ? Secondary to bupropion She is on sertraline chronically and bupropion was started at the current dose of 150mg on 07/05, which is around the same time the headache began. Holding this now and if her TRIMBLE improves --MRI Brain:No acute abnormalities. --Head CTA:Unremarkable CTA of the head. --Neck CTA:Unremarkable CTA of the neck. --MRV Head:Normal MRV. --S/P lumbar puncture: CSF studies showed no growth -- Serology positive for Lyme's Continue IV Rocephin--can transition to amoxicillin upon discharge given history of intolerance to doxycycline in the past Appreciate neurology, ID input Continue IV Solu-Medrol Consider to add Depakote if no improvement Needs follow-up with neurology upon discharge Continue vitamin B2, magnesium oxide Minimize IV pain meds as able Discussed with neurology Dr. Holden on 11/2/23: Recommends no further investigations. Okay to try Gabapentin Started on gabapentin 300 mg at bedtime Plan to discharge home today (3) Lyme disease: Continue ceftriaxone as above (4) Major depressive disorder: Chronic, stable. Cont zoloft and hold bupropion (started early Jun) as above. (5) Alteration in sensory perception: (6) Autism spectrum: Per history. Very articulate and capable. Good historian. DVT Px: SCDs/ambulation Code Status Full Code Disposition Home Total Time Total Time Spent Total Time Spent (In Minutes): 46 minutes Discharge Plan Discharge Items Patient Disposition: Home - Self-Care Reason For Visit: HEADACHE Discharge Diagnosis: Intractable migraine Lyme disease Activity: Per Instructions section Exercise/Sports: Gradually increase as tolerated Non-emergency contact: Primary Care Provider and Neurologist Call non-emergency contact if: you have any medication questions, your symptoms worsen, your pain is concerning for you and you have a fever Follow-up/Referrals: Radha June DO [Primary Care Provider] - (Date & Time 08/20/2023 11:20 AM Provider Ko Tracy MD Department Family [facility] ) Mayela Sanchez PA-C [Outside Practitioners] - (Date & Time 09/16/2023 11:00 AM Provider [facility] [place] [facility] Diet: Carb Count or DM1 Addtl Attending Provider Instructions: Follow-up with your primary care physician on 08/20/2023 11:20 AM Follow-up with your neurologist as advised. --Complete antibiotic course amoxicillin as prescribed. Seek immediate medical attention if your symptoms reoccur or worsen Please take all medications as instructed on discharge list below. Please call if you have any questions or problems. You can reach a [facility] hospitalist on duty at [facility] 24 hours a day by calling [phone] Pending Studies at Discharge: No Stand-Alone Forms: My [facility] kabuku, Smoking Cessation Medications and DC Order Prescriptions: New (DME) OneTouch Verio test strips Strip See Rx Instructions .Route Qty: 50 0RF Rx Instructions: As directed (DME) lancets [OneTouch Delica Plus Lancet] 33 gauge misc See Rx Instructions .Route Qty: 100 0RF Rx Instructions: As directed gabapentin 300 mg Capsule 300 mg PO HS Qty: 30 0RF Advanced Probiotic 625 mg (10 billion cell) Capsule 2 cap PO DAILY Qty: 30 0RF amoxicillin 500 mg capsule 500 mg PO TID 7 Days Qty: 21 0RF Continued insulin aspart U-100 [Novolog U-100 Insulin aspart] 100 unit/mL solution 48 unit continuous subcutaneous infusion DAILY Rx Instructions: pump sertraline 25 mg tablet 37.5 mg PO QPM magnesium 200 mg Tablet 400 mg PO DAILY melatonin 10 mg Tablet 20 mg PO HS riboflavin (vitamin B2) 400 mg Tablet 400 mg PO DAILY Discontinued bupropion HCl 150 mg tablet extended release 24 hr 150 mg PO QAM Discharge Orders: Discharge Order (Routine); Ordered 08/14/23 Ordered By: Amaury Kapadia Admission Data Admit Date/Time: 08/02/23 08:17 Attending Provider: Amaury Kapadia Admit Provider: Saira Dumont Primary Care Provider: Radha June Other Providers: Saira Dumont; Margaret Holden Carlos M.; Isaiah Angel; Ilya Sigala I.; Omero Irwin II; Natalya Guadarrama; Eber Lehman; Fernando Richardson; Devika Montesinos; Dusty Gruber; Dianna Marshall I.
[2023-08-15] MEDS ORDERED: ADVANCED PROBIOTIC 1250 MG CAPSULE PO SCH (09:00)
== END 2023-08-14 13:42 | disposition home or self-care (01) | DRG 103 ==
LOC: 2N 12:59 → ED 12:59 → SUATTDRO 20:03 → 2N 22:58 → SUATTDRO 08-02 08:17 → 3W 08-05 01:15